=== PATIENT | female | born 1975 | race American Indian/Alaskan Native ===

== ENCOUNTER 2016-08-23 13:48 | Emergency (ER) | payer MEDICARE, MEDICAID ==
[2016-08-23 13:54] VITALS: BP 147/77
[2016-08-23] MEDS ORDERED: Ibuprofen 600 MG Tab PO ONE (14:07)
--- NOTE | 2016-08-23 14:12 | EDM.PDOC ---
ED HPI GENERAL MEDICAL PROBLEM - General Chief Complaint: Diabetic Complaint Stated Complaint: ELEVATED BLOOD SUGAR Time Seen by Provider: 08/23/16 14:08 Source of Information: Reports: Patient History Limitations: Reports: No Limitations - History of Present Illness INITIAL COMMENTS - FREE TEXT/NARRATIVE: c/o not feeling well since yesterday, on off dizziness when turns head or lays down but now OK, appetite good, a DM and BS been running high in 300+ denies CP/ SOB/ but c/o headache now. - Related Data Allergies Allergy/AdvReac Type Severity Reaction Status Date / Time No Known Allergies Allergy Verified 08/10/14 18:02 Home Meds: Home Meds Insulin Detemir [Levemir] 57 unit SQ BID 08/10/14 [History] atorvaSTATin [Lipitor] 20 mg PO DAILY 08/10/14 [History] glipiZIDE [Glucotrol XL] 5 mg PO BID 08/10/14 [History] Fenofibric Acid (Choline) [Fenofibric Acid] 135 mg PO DAILY 09/05/15 [History] Levothyroxine [Synthroid] 88 mcg PO ACBREAKFAST 09/05/15 [History] [place] Carbonate 300 mg PO BEDTIME 09/05/15 [History] [place] Carbonate [[place] Carbon[place] ER] 450 mg PO BEDTIME 09/05/15 [History] lamoTRIgine [Lamictal] 25 mg PO BEDTIME 09/05/15 [History] risperiDONE [Risperdal] 4 mg PO BEDTIME 09/05/15 [History] sitaGLIPtin Phos/Metformin HCl [Janumet 50-1,000 MG] 1 each PO BID 09/05/15 [ History] LORazepam 1 mg PO ASDIRECTED PRN 08/23/16 [History] Past Medical History Cardiovascular History: Reports: High Cholesterol Other OB/BYN History: Vaginal PG 3x in past Musculoskeletal History: Reports: Back Pain, Chronic Psychiatric History: Reports: Anxiety Other Psychiatric History: schizoaffective disorder Endocrine/Metabolic History: Reports: Diabetes, Type II, Hypothyroidism Social & Family History - Tobacco Use Smoking Status *Q: Former Smoker Years of Tobacco use: 10 Used Tobacco, but Quit: Yes Month Tobacco Last Used: 2012 Second Hand Smoke Exposure: Yes - Caffeine Use Caffeine Use: Reports: Soda - Recreational Drug Use Recreational Drug Use: No ED ROS GENERAL - Review of Systems Review Of Systems: ROS reveals no pertinent complaints other than HPI. ED EXAM GENERAL NO PERIP PULSE - Physical Exam Exam: See Below Exam Limited By: No Limitations General Appearance: Alert, WD/WN, No Apparent Distress Eye Exam: Bilateral Eye: PERRL (pupils ess ER @ 4mm) Ears: Hearing Grossly Normal Throat/Mouth: Normal Voice, No Airway Compromise Head: Atraumatic Neck: Non-Tender, Full Range of Motion Respiratory/Chest: No Respiratory Distress Cardiovascular: Regular Rate, Rhythm GI/Abdominal: Soft, Non-Tender Neurological: Alert, Oriented, Normal Cognition, Normal Gait, No Motor/Sensory Deficits Psychiatric: Flat Affect Skin Exam: Warm, Dry Lymphatic: No Adenopathy Course - Vital Signs Last Recorded V/S: Last Vital Signs Temp 37.1 C 08/23/16 13:53 Pulse 88 08/23/16 13:53 Resp 22 H 08/23/16 13:53 BP 147/77 H 08/23/16 13:53 Pulse Ox 96 08/23/16 13:53 - Orders/Labs/Meds Orders: Active Orders 24 hr Category Date Time Status GLUCOSE,POC [POC] Routine Lab 08/23/16 16:00 Received Labs: Laboratory Tests 08/23/16 08/23/16 Range/Units 14:08 14:08 WBC 10.3 H (5.0-10.0) 10^3/uL RBC 4.15 L (4.2-5.4) 10^6/uL Hgb 10.9 L (12.0-16.0) g/dL Hct 34.5 L (37.0-47.0) % MCV 83.1 (80-100) fL MCH 26.3 L (27.0-34.0) pg MCHC 31.6 L (33.0-35.0) g/dL Plt Count 180 (150-450) 10^3/uL Neut % (Auto) 75.0 (42.2-75.2) % Lymph % (Auto) 17.8 L (20.5-50.1) % [place] % (Auto) 4.1 (2-8) % Eos % (Auto) 2.8 (1.0-3.0) % Baso % (Auto) 0.3 (0.0-1.0) % Sodium 134 L (135-145) mmol/L Potassium 4.0 (3.6-5.0) mmol/L Chloride 98 L (101-111) mmol/L Carbon Dioxide 25.0 (21.0-31.0) mmol/L Anion Gap 15.0 BUN 8 (7-18) mg/dL Creatinine 0.7 (0.6-1.3) mg/dL Est Cr Clr Drug Dosing 83.65 mL/min Estimated GFR (MDRD) > 60 BUN/Creatinine Ratio 11.42 Glucose 397 H (74-105) mg/dL Calcium 9.0 (8.4-10.2) mg/dl Total Bilirubin 0.4 (0.2-1.0) mg/dL AST 67 H (10-42) IU/L ALT 61 H (10-60) IU/L Alkaline Phosphatase 47 (42-121) IU/L Total Protein 7.7 (6.7-8.2) g/dl Albumin 4.0 (3.2-5.5) g/dl Globulin 3.7 Albumin/Globulin Ratio 1.08 Meds: Medications Discontinued Medications Generic Name Dose Route Start Last Admin Trade Name Freq PRN Reason Stop Dose Admin Ibuprofen 600 mg 08/23/16 14:07 08/23/16 14:17 Motrin PO 08/23/16 14:08 600 mg ONETIME ONE Administration Insulin Human Regular 5 unit 08/23/16 14:42 08/23/16 15:04 Novolin R SUBCUT 08/23/16 14:43 5 units ONETIME ONE Administration Protocol Meclizine HCl 12.5 mg 08/23/16 14:42 08/23/16 15:05 Antivert PO 08/23/16 14:43 12.5 mg ONETIME ONE Administration - Re-Assessments/Exams Free Text/Narrative Re-Assessment/Exam: 08/23/16 16:02 results discussed with Pt & mother. Departure - Departure Time of Disposition: 16:02 Disposition: Home, Self-Care 01 Condition: Good Clinical Impression: Hyperglycemia - Discharge Information Instructions: Type 2 Diabetes Mellitus, Adult, [id number] Forms: ED Department Discharge Additional Instructions: 1) monitor blood sugar closely 2) follow up at clinic - My Orders Last 24 Hours: My Active Orders 08/23/16 16:00 GLUCOSE,POC [POC] Routine - Assessment/Plan Last 24 Hours: My Active Orders 08/23/16 16:00 GLUCOSE,POC [POC] Routine
[2016-08-23 14:32] LABS: CHLORIDE,CL 98 mmol/L (101-111); SODIUM,NA 134 mmol/L (135-145)
[2016-08-23] MEDS ORDERED: Meclizine 12.5 MG Tab PO ONE (14:42)
[2016-08-23] MEDS ORDERED: Insulin Regular, Human 100 Units/ML 10 ML Vial SUBCUT ONE (14:42)
== END 2016-08-23 16:09 | disposition home or self-care (01) ==
LOC: DL.ED 13:48
DX: E11.65 Type 2 diabetes mellitus with hyperglycemia (principal); F41.9 Anxiety disorder, unspecified; E78.00 Pure hypercholesterolemia, unspecified; E03.9 Hypothyroidism, unspecified; Z79.899 Other long term (current) drug therapy; Z79.4 Long term (current) use of insulin; Z87.891 Personal history of nicotine dependence
CPT/HCPCS: 36415; 80053; 82962; 85025; 96372; 99284; A9270; J1815; 99283

== ENCOUNTER 2016-10-17 05:05 | Emergency (ER) | payer MEDICARE, MEDICAID ==
[2016-10-17 05:11] VITALS: BP 155/76
[2016-10-17] MEDS ORDERED: Sodium Chloride 0.9% 1,000 ML IV ONE (05:28)
--- NOTE | 2016-10-17 05:34 | EDM.PDOC ---
ED HPI GENERAL MEDICAL PROBLEM - General Chief Complaint: Diabetic Complaint Stated Complaint: HIGH BLOOD SUGAR Time Seen by Provider: 10/17/16 05:20 Source of Information: Reports: Patient History Limitations: Reports: No Limitations - History of Present Illness INITIAL COMMENTS - FREE TEXT/NARRATIVE: This 41 yo female patient reports to the ED due to a high blood sugar. The patient reports her blood sugar was 550 at home and came directly to the ED. The patient reports she does not know the names of her medications and only knows how much she takes in the morning and the evening. The patient does not know what she is supposed to be taking with meals. The patient does not know what her blood sugar was before taking her medications. The patient reports she normally goes to bed at about 0300, but did not get to sleep tonight. The patient reports that her mother controls her diabetes, but her mother "couldn't get up" this morning. The patient reports she drove herself to the ED. Onset: Today Duration: Constant Location: Reports: Other Quality: Reports: Other Severity: Moderate Improves with: Reports: None Worsens with: Reports: None Associated Symptoms: Reports: No Other Symptoms - Related Data Allergies Allergy/AdvReac Type Severity Reaction Status Date / Time No Known Allergies Allergy Verified 10/17/16 05:11 Home Meds: Home Meds Insulin Detemir [Levemir] 57 unit SQ BID 08/10/14 [History] atorvaSTATin [Lipitor] 20 mg PO DAILY 08/10/14 [History] glipiZIDE [Glucotrol XL] 5 mg PO BID 08/10/14 [History] Fenofibric Acid (Choline) [Fenofibric Acid] 135 mg PO DAILY 09/05/15 [History] Levothyroxine [Synthroid] 88 mcg PO ACBREAKFAST 09/05/15 [History] [place] Carbonate 300 mg PO BEDTIME 09/05/15 [History] [place] Carbonate [[place] Carbonate ER] 450 mg PO BEDTIME 09/05/15 [History] lamoTRIgine [Lamictal] 25 mg PO BEDTIME 09/05/15 [History] risperiDONE [Risperdal] 4 mg PO BEDTIME 09/05/15 [History] sitaGLIPtin Phos/Metformin HCl [Janumet 50-1,000 MG] 1 each PO BID 09/05/15 [ History] LORazepam 1 mg PO ASDIRECTED PRN 08/23/16 [History] Past Medical History Cardiovascular History: Reports: High Cholesterol Other OB/BYN History: Vaginal PG 3x in past Musculoskeletal History: Reports: Back Pain, Chronic Psychiatric History: Reports: Anxiety, Suicidal Ideation Other Psychiatric History: schizoaffective disorder Endocrine/Metabolic History: Reports: Diabetes, Type II, Hypothyroidism Social & Family History - Tobacco Use Smoking Status *Q: Former Smoker Years of Tobacco use: 10 Used Tobacco, but Quit: Yes Month Tobacco Last Used: 6 years ago Second Hand Smoke Exposure: Yes - Caffeine Use Caffeine Use: Reports: Soda - Recreational Drug Use Recreational Drug Use: No ED ROS GENERAL - Review of Systems Review Of Systems: ROS reveals no pertinent complaints other than HPI. ED EXAM GENERAL NO PERIP PULSE - Physical Exam Exam: See Below Exam Limited By: No Limitations General Appearance: Alert, WD/WN, Anxious, Moderate Distress, Obese Eye Exam: Bilateral Eye: EOMI, Normal Inspection, PERRL Ears: Normal External Exam, Normal Canal, Hearing Grossly Normal, Normal TMs Nose: Normal Inspection, Normal Mucosa, No Blood Throat/Mouth: Normal Inspection, Normal Lips, Normal Teeth, Normal Gums, Normal Oropharynx, Normal Voice, No Airway Compromise Head: Atraumatic, Normocephalic Neck: Normal Inspection, Supple, Non-Tender, Full Range of Motion Respiratory/Chest: No Respiratory Distress, Lungs Clear, Normal Breath Sounds, No Accessory Muscle Use, Chest Non-Tender Cardiovascular: Normal Peripheral Pulses, Regular Rate, Rhythm, No Edema, No Gallop, No JVD, No Murmur, No Rub GI/Abdominal: Normal Bowel Sounds, Soft, Non-Tender, No Organomegaly, No Distention, No Abnormal Bruit, No Mass (Female) Exam: Deferred Rectal (Female) Exam: Deferred Back Exam: Normal Inspection, Full Range of Motion, NT Extremities: Normal Inspection, Normal Range of Motion, Non-Tender, Normal Capillary Refill, No Pedal Edema Neurological: Alert, Oriented, CN II-XII Intact, Normal Cognition, Normal Gait, Normal Reflexes, No Motor/Sensory Deficits Psychiatric: Normal Affect, Normal Mood Skin Exam: Warm, Dry, Intact, Normal Color, No Rash Lymphatic: No Adenopathy Course - Vital Signs Last Recorded V/S: Last Vital Signs Temp 37.2 C 10/17/16 05:08 Pulse 84 10/17/16 05:08 Resp 18 08/07/17 05:08 BP 155/76 H 10/17/16 05:08 Pulse Ox 97 10/17/16 05:08 - Orders/Labs/Meds Orders: Active Orders 24 hr Category Date Time Status Blood Glucose Check, Bedside [RC] ONETIME Care 10/17/16 05:12 Active Glucose [Blood Glucose Check, Bedside] [RC] ONETIME Care 10/17/16 06:40 Ordered Labs: Laboratory Tests 10/17/16 10/17/16 10/17/16 Range/Units 05:12 05:20 05:20 WBC 9.1 (5.0-10.0) 10^3/uL RBC 4.08 L (4.2-5.4) 10^6/uL Hgb 10.9 L (12.0-16.0) g/dL Hct 34.8 L (37.0-47.0) % MCV 85.3 (80-100) fL MCH 26.7 L (27.0-34.0) pg MCHC 31.3 L (33.0-35.0) g/dL Plt Count 187 (150-450) 10^3/uL Neut % (Auto) 67.7 (42.2-75.2) % Lymph % (Auto) 24.8 (20.5-50.1) % [place] % (Auto) 4.6 (2-8) % Eos % (Auto) 2.7 (1.0-3.0) % Baso % (Auto) 0.2 (0.0-1.0) % Sodium 132 L (135-145) mmol/L Potassium 4.7 (3.6-5.0) mmol/L Chloride 95 L (101-111) mmol/L Carbon Dioxide 26.0 (21.0-31.0) mmol/L Anion Gap 15.7 BUN 17 (7-18) mg/dL Creatinine 0.8 (0.6-1.3) mg/dL Est Cr Clr Drug Dosing 73.19 mL/min Estimated GFR (MDRD) > 60 BUN/Creatinine Ratio 21.25 Glucose 585 H* (74-105) mg/dL POC Glucose > 500 H* (70-105) mg/dl Calcium 9.3 (8.4-10.2) mg/dl Total Bilirubin 0.5 (0.2-1.0) mg/dL AST 52 H (10-42) IU/L ALT 58 (10-60) IU/L Alkaline Phosphatase 49 (42-121) IU/L Total Protein 7.3 (6.7-8.2) g/dl Albumin 3.8 (3.2-5.5) g/dl Globulin 3.5 Albumin/Globulin Ratio 1.09 Ketones Negative Meds: Medications Discontinued Medications Generic Name Dose Route Start Last Admin Trade Name [place] PRN Reason Stop Dose Admin Sodium Chloride 1,000 mls @ 999 mls/hr 10/17/16 05:28 10/17/16 05:35 Normal Saline IV 10/17/16 06:28 999 mls/hr .BOLUS ONE Administration Insulin Human Regular 5 unit 10/17/16 06:04 10/17/16 06:08 Humulin R IV 10/17/16 06:05 5 units ONETIME ONE Administration Protocol Departure - Departure Time of Disposition: 06:42 Disposition: Home, Self-Care 01 Condition: Fair Clinical Impression: Hyperglycemia - Discharge Information Instructions: Hyperglycemia, [id number] Forms: ED Department Discharge Care Plan Goals: The patient and her mother were advised of the examination and lab results during the visit. The patient was given 5 units of Regular Insulin and 1 liter of IV fluids while in the ED. The patient was encouraged to continue to monitor her blood sugar. If the patient has any additional symptoms or concerns, the patient should follow-up with her primary care facility or return to the emergency department. - My Orders Last 24 Hours: My Active Orders 10/17/16 05:12 Blood Glucose Check, Bedside [RC] ONETIME 10/17/16 06:40 Glucose [Blood Glucose Check, Bedside] [] ONETIME - Assessment/Plan Last 24 Hours: My Active Orders 10/17/16 05:12 Blood Glucose Check, Bedside [RC] ONETIME 10/17/16 06:40 Glucose [Blood Glucose Check, Bedside] [] ONETIME
[2016-10-17 06:02] LABS: CHLORIDE,CL 95 mmol/L (101-111); SODIUM,NA 132 mmol/L (135-145)
[2016-10-17] MEDS ORDERED: Insulin Regular, Human 100 Units/ML 3 ML Vial IV ONE (06:04)
== END 2016-10-17 06:51 | disposition home or self-care (01) ==
LOC: DL.ED 05:05
DX: E11.65 Type 2 diabetes mellitus with hyperglycemia (principal); E78.00 Pure hypercholesterolemia, unspecified; F41.9 Anxiety disorder, unspecified; E03.9 Hypothyroidism, unspecified; Z87.891 Personal history of nicotine dependence; Z79.899 Other long term (current) drug therapy; Z79.4 Long term (current) use of insulin
CPT/HCPCS: 36415; 80053; 82009; 82962; 85025; 96361; 96374; 99283; J1815; J7030; 99284

== ENCOUNTER 2018-06-12 13:39 | Emergency (ER) | payer MEDICARE, MEDICAID ==
[2018-06-12 13:51] VITALS: BP 141/82
--- NOTE | 2018-06-12 14:00 | EDM.PDOC ---
"ED HPI GENERAL MEDICAL PROBLEM - General Chief Complaint: Chest Pain Stated Complaint: CHEST PAIN Time Seen by Provider: 06/12/18 14:00 Source of Information: Reports: Patient, Old Records, RN, RN Notes Reviewed History Limitations: Reports: No Limitations - History of Present Illness INITIAL COMMENTS - FREE TEXT/NARRATIVE: Pt presents to ER from home by POV with c/o mild dull mid-chest pain x3 days. Pt states that she also has been unable to have a BM for 3 days and feels crampy in the belly and thinks that she is constipated. She denies N/V, shortness of breath, edema, orthopnea, cough, or radiating pain. Denies fever, chills, or urinary symptoms. Pt told the triage nurse that she was was having some thoughts of self harm. However, when I asked her she stated that she was not suicidal and is well connected with mental health services. Onset: Gradual Onset Date: 06/10/18 Duration: Constant, Waxing/Waning Location: Reports: Chest, Abdomen Quality: Reports: Dull, Pressure, Other (Cramping) Severity: Mild Improves with: Reports: None Worsens with: Reports: Eating Associated Symptoms: Reports: No Other Symptoms - Related Data Allergies Allergy/AdvReac Type Severity Reaction Status Date / Time No Known Allergies Allergy Verified 06/12/18 13:49 Home Meds: Home Meds Insulin Detemir [Levemir] 57 unit SQ BID 08/10/14 [History] atorvaSTATin [Lipitor] 20 mg PO DAILY 08/10/14 [History] glipiZIDE [Glucotrol XL] 5 mg PO BID 08/10/14 [History] Fenofibric Acid (Choline) [Fenofibric Acid] 135 mg PO DAILY 09/05/15 [History] Levothyroxine [Synthroid] 88 mcg PO ACBREAKFAST 09/05/15 [History] [place] Carbonate 300 mg PO BEDTIME 09/05/15 [History] [place] Carbonate [[place] Carbonate ER] 450 mg PO BEDTIME 09/05/15 [History] lamoTRIgine [Lamictal] 25 mg PO BEDTIME 09/05/15 [History] risperiDONE [Risperdal] 4 mg PO BEDTIME 09/05/15 [History] sitaGLIPtin Phos/Metformin HCl [Janumet 50-1,000 MG] 1 each PO BID 09/05/15 [ History] LORazepam 1 mg PO ASDIRECTED PRN 08/23/16 [History] Past Medical History Cardiovascular History: Reports: High Cholesterol 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: Vaginal PG 3x in past Musculoskeletal History: Reports: Back Pain, Chronic Psychiatric History: Reports: Anxiety, Suicidal Ideation Other Psychiatric History: schizoaffective disorder Endocrine/Metabolic History: Reports: Diabetes, Type II, Hypothyroidism Social & Family History - Tobacco Use Smoking Status *Q: Former Smoker Used Tobacco, but Quit: Yes Month/Year Tobacco Last Used: 2010 - Caffeine Use Caffeine Use: Reports: Soda - Recreational Drug Use Recreational Drug Use: No - Living Situation & Occupation Living situation: Reports: Single, with Family Occupation: Disabled ED ROS GENERAL - Review of Systems Review Of Systems: ROS reveals no pertinent complaints other than HPI. ED EXAM, GENERAL - Physical Exam Exam: See Below Exam Limited By: No Limitations General Appearance: Alert, WD/WN, No Apparent Distress, Obese Eye Exam: Bilateral Eye: Normal Inspection Nose: Normal Inspection Throat/Mouth: Normal Inspection, Normal Lips, Normal Teeth, Normal Gums, Normal Oropharynx, Normal Voice, No Airway Compromise Head: Atraumatic, Normocephalic Neck: Normal Inspection, Supple, Non-Tender, Full Range of Motion Respiratory/Chest: No Respiratory Distress, Lungs Clear, Normal Breath Sounds, No Accessory Muscle Use, Chest Non-Tender Cardiovascular: Normal Peripheral Pulses, Regular Rate, Rhythm, No Edema, No Gallop, No JVD, No Murmur, No Rub GI/Abdominal: Normal Bowel Sounds, Soft, Non-Tender, No Distention, Splenomegaly. No: Guarding, Rigid (Female) Exam: Deferred Rectal (Female) Exam: Deferred Back Exam: Normal Inspection Extremities: Normal Inspection, No Pedal Edema Neurological: Alert, Oriented, No Motor/Sensory Deficits Psychiatric: Normal Affect, Normal Mood Skin Exam: Warm, Dry, Intact, Normal Color, No Rash EKG INTERPRETATION EKG Date: 06/12/18 Time: 13:51 Rhythm: Other (SR) Rate (Beats/Min): 86 [place]: RAD-Right [place] Deviation P-Wave: Present QRS: Other (borderline R wave progression) ST-T: Normal QT: Normal Comparison: No Change Course - Vital Signs Last Recorded V/S: Last Vital Signs Temp 36.4 C 06/12/18 13:49 Pulse 86 06/12/18 13:49 Resp 23 H 06/12/18 13:49 BP 141/82 H 06/12/18 13:49 Pulse Ox 95 06/12/18 13:49 - Orders/Labs/Meds Orders: Active Orders 24 hr Category Date Time Status EKG 12 Lead [EKG Documentation Completion] [RC] STAT Care 06/12/18 14:00 Active Peripheral IV Care [RC] . DIRECTED Care 06/12/18 14:17 Active HCG QUALITATIVE,URINE [URCHEM] Stat Lab 06/12/18 14:17 Ordered LITHIUM [REF] Stat Lab 06/12/18 13:27 Received UA RFX JAIRO AND CULT IF INDIC [URIN] Stat Lab 06/12/18 14:17 Ordered Peripheral IV Insertion Adult [OM.PC] Stat Oth 06/12/18 14:17 Ordered Labs: Laboratory Tests 06/12/18 06/12/18 Range/Units 13:27 13:27 WBC 13.3 H (5.0-10.0) 10^3/uL RBC 4.61 (4.2-5.4) 10^6/uL Hgb 12.3 (12.0-16.0) g/dL Hct 39.3 (37.0-47.0) % MCV 85.2 (80-100) fL MCH 26.7 L (27.0-34.0) pg MCHC 31.3 L (33.0-35.0) g/dL Plt Count 159 (150-450) 10^3/uL Neut % (Auto) 71.6 (42.2-75.2) % Lymph % (Auto) 20.3 L (20.5-50.1) % [place] % (Auto) 4.8 (2-8) % Eos % (Auto) 2.9 (1.0-3.0) % Baso % (Auto) 0.4 (0.0-1.0) % Sodium 136 (135-145) mmol/L Potassium 3.9 (3.6-5.0) mmol/L Chloride 100 L (101-111) mmol/L Carbon Dioxide 27.0 (21.0-31.0) mmol/L Anion Gap 12.9 BUN 10 (7-18) mg/dL Creatinine 0.7 (0.6-1.3) mg/dL Est Cr Clr Drug Dosing 82.80 mL/min Estimated GFR (MDRD) > 60 BUN/Creatinine Ratio 14.28 Glucose 153 H (74-105) mg/dL Calcium 9.1 (8.4-10.2) mg/dl Total Bilirubin 0.5 (0.2-1.0) mg/dL AST 37 (10-42) IU/L ALT 41 (10-60) IU/L Alkaline Phosphatase 66 (42-121) IU/L Troponin I < 0.02 (0.00-0.02) ng/ml Total Protein 7.6 (6.7-8.2) g/dl Albumin 3.8 (3.2-5.5) g/dl Globulin 3.8 Albumin/Globulin Ratio 1.00 Amylase 53 (28-100) U/L Lipase 33 (22-51) U/L Meds: Medications Discontinued Medications Generic Name Dose Route Start Last Admin Trade Name Freq PRN Reason Stop Dose Admin Aspirin 324 mg 06/12/18 14:19 06/12/18 14:46 Aspirin PO 06/12/18 14:20 324 mg ONETIME ONE Administration Magnesium Citrate 296 ml 06/12/18 15:12 06/12/18 15:18 Citrate Of Magnesia PO 06/12/18 15:13 296 ml ONETIME ONE Administration Sodium Chloride 10 ml 06/12/18 14:17 Saline Flush FLUSH ASDIRECTED PRN Keep Vein Open - Radiology Interpretation Free Text/Narrative:: [facility] Final Radiology Report Call: [phone] assistance Online chat: [email or web address] Name: RACHELLE SIMS Age: 42Years F Date: 06/12/2018 SSN: -- : [id number] Study: XR CHEST 2 VIEWS Requesting Physician: ABELARDO MCDANIEL Images: 2 Addl Studies: Provided Clinical History: Contrast: Contrast Medium: Contrast Amount: Contrast Method: CONFIDENTIALITY STATEMENT This report is intended only for use by the referring physician, and only in accordance with law. If you received this in error, call [phone]. Page 1 of 1 EXAM: XR Chest, 2 Views EXAM DATE/TIME: 06/12/2018 2:24 PM CLINICAL HISTORY: 42 years old, female; Pain; Chest pain; Type not specified TECHNIQUE: Imaging protocol: XR of the chest, 2 views. COMPARISON: No relevant prior studies available. FINDINGS: Lungs: Unremarkable. No consolidation. Pleural space: Unremarkable. No pleural effusion. No pneumothorax. Heart/Mediastinum: Unremarkable. No cardiomegaly. Bones/joints: Unremarkable. IMPRESSION: No acute findings. Thank you for allowing us to participate in the care of your patient. Dictated and Authenticated by: Blayne Salcido DO 06/12/2018 2:56 PM Central Time ([place] & [place]) [facility] Final Radiology Report Call: [phone] assistance Online chat: [email or web address] Name: RACHELLE SIMS Age: 42Years F Date: 06/12/2018 SSN: -- : [id number] Study: XR ABDOMEN 3 OR MORE VIEWS Requesting Physician: ABELARDO MCDANIEL Images: 5 Addl Studies: Provided Clinical History: Contrast: Contrast Medium: Contrast Amount: Contrast Method: Page 1 of 2 EXAM: XR Abdomen, 3 or More Views EXAM DATE/TIME: 06/12/2018 2:31 PM CLINICAL HISTORY: 42 years old, female; Pain; Abdominal pain; Generalized; Patient HX: Abdomen pain and constipation TECHNIQUE: Imaging protocol: Frontal view of the abdomen/pelvis with upright view of the abdomen and one or more additional views. COMPARISON: No relevant prior studies available. FINDINGS: Gastrointestinal tract: The bowel gas pattern is nonobstructive and nonspecific. Intraperitoneal space: Normal. No free air. Bones/joints: Unremarkable for age. Other findings: Mild hepatomegaly is present. IMPRESSION: 1. The bowel gas pattern is nonobstructive and nonspecific. 2. Mild hepatomegaly is present. Further evaluation with CT of the abdomen and pelvis may be of benefit, as clinically warranted. Thank you for allowing us to participate in the care of your patient. RACHELLE SIMS | Final Radiology Report CONFIDENTIALITY STATEMENT This report is intended only for use by the referring physician, and only in accordance with law. If you received this in error, call [phone]. Page 2 of 2 Dictated and Authenticated by: Blayne Salcido DO 06/12/2018 2:57 PM Central Time ([place] & [place]) Departure - Departure Time of Disposition: 15:13 Disposition: Home, Self-Care 01 Condition: Good Clinical Impression: Non-cardiac chest pain Constipation Qualifiers: Constipation type: unspecified constipation type Qualified Code(s): K59.00 - Constipation, unspecified Instructions: High-Fiber Diet, Constipation, Adult, Sikx-[id number], Nonspecific Chest Pain, [id number] Referrals: PCP,None [Ordering Only Provider] - Forms: ED Department Discharge Additional Instructions: Magnesium Citrate Solution: Drink 1/2 bottle now, and drink the second 1/2 of the bottle before bed tonight. Follow up in clinic if not improved in 2 to 3 days. - My Orders Last 24 Hours: My Active Orders 06/12/18 13:27 LITHIUM [REF] Stat 06/12/18 14:00 EKG 12 Lead [EKG Documentation Completion] [RC] STAT 06/12/18 14:17 Peripheral IV Care [RC] . DIRECTED HCG QUALITATIVE,URINE [URCHEM] Stat UA RFX JAIRO AND CULT IF INDIC [URIN] Stat Peripheral IV Insertion Adult [OM.PC] Stat - Assessment/Plan Last 24 Hours: My Active Orders 06/12/18 13:27 LITHIUM [REF] Stat 06/12/18 14:00 EKG 12 Lead [EKG Documentation Completion] [RC] STAT 06/12/18 14:17 Peripheral IV Care [RC] . DIRECTED HCG QUALITATIVE,URINE [URCHEM] Stat UA RFX JAIRO AND CULT IF INDIC [URIN] Stat Peripheral IV Insertion Adult [OM.PC] Stat"
[2018-06-12] MEDS ORDERED: Sodium Chloride 0.9% 10 ML Syringe FLUSH PRN (14:17)
[2018-06-12] MEDS ORDERED: Aspirin 81 MG Tab.Chew PO ONE (14:19)
[2018-06-12 14:37] LABS: ANION GAP 12.9; CHLORIDE,CL 100 mmol/L (101-111); SODIUM,NA 136 mmol/L (135-145)
[2018-06-12] MEDS ORDERED: Magnesium Citrate Solution 296 ML Bottle PO ONE (15:12)
== END 2018-06-12 15:27 | disposition home or self-care (01) ==
LOC: DL.ED 13:39
DX: R07.89 Other chest pain (principal); K59.00 Constipation, unspecified; E78.00 Pure hypercholesterolemia, unspecified; F41.9 Anxiety disorder, unspecified; E11.9 Type 2 diabetes mellitus without complications; E03.9 Hypothyroidism, unspecified; Z87.891 Personal history of nicotine dependence; Z79.84 Long term (current) use of oral hypoglycemic drugs; Z79.899 Other long term (current) drug therapy
CPT/HCPCS: 36415; 71046; 74021; 80053; 80178; 82150; 83690; 84484; 85025; 93005; 99285; A9270; 93010; 99283

== ENCOUNTER 2018-11-01 19:22 | Emergency (ER) | payer MEDICARE, MEDICAID ==
[2018-11-01 19:36] VITALS: BP 159/82
[2018-11-01] MEDS ORDERED: Ketorolac 30 MG/ML SDV IM ONE (20:28)
--- NOTE | 2018-11-01 20:35 | EDM.PDOC ---
ED HPI GENERAL MEDICAL PROBLEM - General Chief Complaint: Genitourinary Problem Stated Complaint: VAGINAL BLEEDING- FEELS LIKE GIVING Time Seen by Provider: 11/01/18 20:29 Source of Information: Reports: Patient History Limitations: Reports: No Limitations - History of Present Illness INITIAL COMMENTS - FREE TEXT/NARRATIVE: had 1x vaginal bleed when she wiped herself earlier today. called PMD got Rx but not helping her discomfort. also has appt in am. denies . stated worried something wrong. 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) Lower Abdominal Pain Score (Numeric/FACES): 7 - Related Data Allergies Allergy/AdvReac Type Severity Reaction Status Date / Time No Known Allergies Allergy Verified 06/12/18 13:49 Home Meds: Home Meds Insulin Detemir [Levemir] 65 unit SQ BID 08/10/14 [History] atorvaSTATin [Lipitor] 20 mg PO DAILY 08/10/14 [History] glipiZIDE [Glucotrol XL] 5 mg PO BID 08/10/14 [History] Fenofibric Acid (Choline) [Fenofibric Acid] 135 mg PO DAILY 09/05/15 [History] Levothyroxine [Synthroid] 88 mcg PO ACBREAKFAST 09/05/15 [History] [place] Carbonate 300 mg PO BEDTIME 09/05/15 [History] lamoTRIgine [Lamictal] 25 mg PO BEDTIME 09/05/15 [History] risperiDONE [Risperdal] 4 mg PO BEDTIME 09/05/15 [History] sitaGLIPtin Phos/Metformin HCl [Janumet 50-1,000 MG] 1 each PO BID 09/05/15 [ History] LORazepam 1 mg PO ASDIRECTED PRN 08/23/16 [History] Past Medical History HEENT History: Reports: Impaired Vision Cardiovascular History: Reports: High Cholesterol Gastrointestinal History: Reports: None 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: Vaginal PG 3x in past Musculoskeletal History: Reports: Back Pain, Chronic Psychiatric History: Reports: Anxiety, Suicidal Ideation Other Psychiatric History: schizoaffective disorder Endocrine/Metabolic History: Reports: Diabetes, Type II, Hypothyroidism - Infectious Disease History Infectious Disease History: Reports: Chicken Pox Social & Family History - Family History Family Medical History: Noncontributory - Tobacco Use Smoking Status *Q: Unknown Ever Smoked Second Hand Smoke Exposure: No - Caffeine Use Caffeine Use: Reports: Soda - Recreational Drug Use Recreational Drug Use: No - Living Situation & Occupation Living situation: Reports: Single, with Family Occupation: Disabled ED ROS GENERAL - Review of Systems Review Of Systems: ROS reveals no pertinent complaints other than HPI. ED EXAM, RENAL/ - Physical Exam Exam: See Below Exam Limited By: No Limitations General Appearance: Alert, WD/WN, No Apparent Distress, Anxious Ears: Hearing Grossly Normal Throat/Mouth: Normal Voice, No Airway Compromise Head: Atraumatic Neck: Non-Tender, Full Range of Motion Respiratory/Chest: No Respiratory Distress Cardiovascular: Regular Rate, Rhythm GI/Abdominal: Soft, Non-Tender, Other (minimal suprapubic discomfort) Neurological: Alert, Oriented, Normal Cognition, Normal Gait, No Motor/Sensory Deficits Psychiatric: Flat Affect Skin Exam: Warm, Dry, Normal Color Lymphatic: No Adenopathy Course - Vital Signs Last Recorded V/S: Last Vital Signs Temp 36.3 C 11/01/18 19:35 Pulse 84 11/01/18 19:35 Resp 16 11/01/18 19:35 BP 159/82 H 11/01/18 19:35 Pulse Ox 98 11/01/18 19:35 - Orders/Labs/Meds Orders: Active Orders 24 hr Category Date Time Status CULTURE URINE [RM] Urgent Lab 11/01/18 19:44 Received Ketorolac [Toradol] Med 11/01/18 20:28 Once 30 mg IM ONETIME ONE Labs: Laboratory Tests 11/01/18 11/01/18 Range/Units 19:44 19:44 Urine Color Light yellow (YELLOW) Urine Appearance Slightly cloudy (CLEAR) Urine pH 7.0 (5.0-9.0) Ur Specific [place] 1.015 (1.005-1.030) Urine Protein 30 H (NEGATIVE) Urine Glucose (UA) Negative (NEGATIVE) Urine Ketones Negative (NEGATIVE) Urine Occult Blood Moderate H (NEGATIVE) Urine Nitrite Negative (NEGATIVE) Urine Bilirubin Negative (NEGATIVE) Urine Urobilinogen 0.2 (0.2-1.0) mg/dL Ur Leukocyte Esterase Trace H (NEGATIVE) Urine RBC 0-5 /HPF Urine WBC 5-10 H (0-5/HPF) /HPF Ur Epithelial Cells Moderate H (NOT SEEN) /HPF Urine Bacteria Moderate H (0-FEW/HPF) /HPF Urine Opiates Screen Negative (NEGATIVE) Ur Oxycodone Screen Negative (NEGATIVE) Urine Methadone Screen Negative (NEGATIVE) Ur Barbiturates Screen Negative (NEGATIVE) U Tricyclic Antidepress Negative (NEGATIVE) Ur Phencyclidine Scrn Negative (NEGATIVE) Ur Amphetamine Screen Negative (NEGATIVE) U Methamphetamines Scrn Negative (NEGATIVE) Urine MDMA Screen Negative (NEGATIVE) U Benzodiazepines Scrn Positive H (NEGATIVE) Urine Cocaine Screen Negative (NEGATIVE) U Marijuana (THC) Screen Negative (NEGATIVE) - Re-Assessments/Exams Free Text/Narrative Re-Assessment/Exam: 11/01/18 20:32 results discussed with pt. Departure - Departure Time of Disposition: 20:33 Disposition: Home, Self-Care 01 Condition: Good Clinical Impression: Menopausal bleeding - Discharge Information Instructions: Postmenopausal Bleeding, [id number] Additional Instructions: 1) rest 2) follow up with appointment tomorrow - My Orders Last 24 Hours: My Active Orders 11/01/18 19:44 CULTURE URINE [RM] Urgent 11/01/18 20:28 Ketorolac [Toradol] 30 mg IM ONETIME ONE - Assessment/Plan Last 24 Hours: My Active Orders 11/01/18 19:44 CULTURE URINE [RM] Urgent 11/01/18 20:28 Ketorolac [Toradol] 30 mg IM ONETIME ONE
== END 2018-11-01 20:54 | disposition home or self-care (01) ==
LOC: DL.ED 19:22
DX: N92.4 Excessive bleeding in the premenopausal period (principal); E11.9 Type 2 diabetes mellitus without complications; F41.9 Anxiety disorder, unspecified; F25.9 Schizoaffective disorder, unspecified; E03.9 Hypothyroidism, unspecified; E78.00 Pure hypercholesterolemia, unspecified; Z79.4 Long term (current) use of insulin; Z79.899 Other long term (current) drug therapy
CPT/HCPCS: 80305; 81001; 87086; 96372; 99283; J1885

== ENCOUNTER 2019-03-25 00:48 | Emergency (ER) | payer MEDICAID, MEDICARE ==
[2019-03-25 00:54] VITALS: BP 165/83; PULSE 123
[2019-03-25 01:25] LABS: ANION GAP 13.7; CHLORIDE,CL 100 mmol/L (101-111); SODIUM,NA 134 mmol/L (135-145)
[2019-03-25 01:35] LABS: ACETAMINOPHEN < 10 ug/mL
[2019-03-25] MEDS ORDERED: Acetaminophen 325 MG Tab PO ONE (01:55)
--- NOTE | 2019-03-25 03:02 | EDM.PDOCBH ---
ED HPI GENERAL MEDICAL PROBLEM - General Chief Complaint: Behavioral/Psych Stated Complaint: AMBULANCE Time Seen by Provider: 03/25/19 02:58 Source of Information: Reports: Patient, EMS, Old Records History Limitations: Reports: No Limitations - History of Present Illness INITIAL COMMENTS - FREE TEXT/NARRATIVE: pt states hadn't been right for awhile about 15-17 years after trying out pot. tonight just didn't feel right. denies self harm but has thought about it on- off for awhile. likes to talk to mental health. been under lot of stress in life. Headache Pain Score (Numeric/FACES): 5 - Related Data Allergies Allergy/AdvReac Type Severity Reaction Status Date / Time No Known Allergies Allergy Verified 11/26/18 10:35 Home Meds: Home Meds Insulin Detemir [Levemir] 65 unit SQ BID 08/10/14 [History] atorvaSTATin [Lipitor] 20 mg PO DAILY 08/10/14 [History] glipiZIDE [Glucotrol XL] 5 mg PO BID 08/10/14 [History] Fenofibric Acid (Choline) [Fenofibric Acid] 135 mg PO DAILY 09/05/15 [History] Levothyroxine [Synthroid] 88 mcg PO ACBREAKFAST 09/05/15 [History] [place] Carbonate 300 mg PO BEDTIME 09/05/15 [History] lamoTRIgine [Lamictal] 25 mg PO BEDTIME 09/05/15 [History] risperiDONE [Risperdal] 4 mg PO BEDTIME 09/05/15 [History] sitaGLIPtin Phos/Metformin HCl [Janumet 50-1,000 MG] 1 each PO BID 09/05/15 [ History] LORazepam 1 mg PO ASDIRECTED PRN 08/23/16 [History] Past Medical History HEENT History: Reports: Impaired Vision Cardiovascular History: Reports: High Cholesterol Respiratory History: Reports: None Gastrointestinal History: Reports: None Genitourinary History: Reports: None 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: Vaginal PG 3x in past Musculoskeletal History: Reports: Back Pain, Chronic Neurological History: Reports: None Psychiatric History: Reports: Anxiety, Depression, Suicidal Ideation Other Psychiatric History: schizoaffective disorder Endocrine/Metabolic History: Reports: Diabetes, Type II, Hypothyroidism Hematologic History: Reports: None Immunologic History: Reports: None Oncologic (Cancer) History: Reports: None Dermatologic History: Reports: None - Infectious Disease History Infectious Disease History: Reports: Chicken Pox - Past Surgical History Head Surgeries/Procedures: Reports: None Social & Family History - Family History Family Medical History: Noncontributory - Tobacco Use Smoking Status *Q: Former Smoker Used Tobacco, but Quit: Yes Month/Year Tobacco Last Used: 2010 Second Hand Smoke Exposure: No - Caffeine Use Caffeine Use: Reports: Coffee - Recreational Drug Use Recreational Drug Use: No - Living Situation & Occupation Living situation: Reports: Single, with Family Occupation: Disabled ED ROS GENERAL - Review of Systems Review Of Systems: Comprehensive ROS is negative, except as noted in HPI. ED EXAM, BEHAVIORAL HEALTH - Physical Exam Exam: See Below Exam Limited By: No Limitations General Appearance: Alert, WD/WN, No Apparent Distress Eye Exam: Bilateral Eye: PERRL (pupils ER @ 4mm) Ears: Hearing Grossly Normal Throat/Mouth: Normal Voice, No Airway Compromise Head: Atraumatic Neck: Non-Tender, Full Range of Motion Respiratory/Chest: No Respiratory Distress, Lungs Clear, Normal Breath Sounds Cardiovascular: Regular Rate, Rhythm GI/Abdominal: Soft, Non-Tender Neurological: Alert, Normal Mood/Affect, Normal Cognition, Normal Gait, No Motor /Sensory Deficits, Oriented x 3 Psychiatric: Alert, Normal Affect, Normal Cognition, Normal Mood, Oriented Skin Exam: Warm, Dry, Normal color COURSE, BEHAVIORAL HEALTH COMP - Course Vital Signs: Last Vital Signs Temp 36.9 C 03/25/19 00:48 Pulse 123 H 03/25/19 00:48 Resp 18 03/25/19 00:48 BP 165/83 H 03/25/19 00:48 Pulse Ox 97 03/25/19 00:48 Orders, Labs, Meds: Laboratory Tests 03/25/19 03/25/19 03/25/19 Range/Units 01:00 01:00 01:17 WBC 12.0 H (5.0-10.0) 10^3/uL RBC 4.16 L (4.2-5.4) 10^6/uL Hgb 11.3 L (12.0-16.0) g/dL Hct 35.5 L (37.0-47.0) % MCV 85.3 (80-100) fL MCH 27.2 (27.0-34.0) pg MCHC 31.8 L (33.0-35.0) g/dL Plt Count 144 L (150-450) 10^3/uL Neut % (Auto) 63.2 (42.2-75.2) % Lymph % (Auto) 27.8 (20.5-50.1) % [place] % (Auto) 5.5 (2-8) % Eos % (Auto) 3.1 H (1.0-3.0) % Baso % (Auto) 0.4 (0.0-1.0) % Sodium 134 L (135-145) mmol/L Potassium 3.7 (3.6-5.0) mmol/L Chloride 100 L (101-111) mmol/L Carbon Dioxide 24.0 (21.0-31.0) mmol/L Anion Gap 13.7 BUN 15 (7-18) mg/dL Creatinine 0.8 (0.6-1.3) mg/dL Est Cr Clr Drug Dosing TNP Estimated GFR (MDRD) > 60 BUN/Creatinine Ratio 18.75 Glucose 180 H (74-105) mg/dL Calcium 9.8 (8.4-10.2) mg/dl Total Bilirubin 0.5 (0.2-1.0) mg/dL AST 32 (10-42) IU/L ALT 41 (10-60) IU/L Alkaline Phosphatase 63 (42-121) IU/L Total Protein 7.4 (6.7-8.2) g/dl Albumin 3.7 (3.2-5.5) g/dl Globulin 3.7 Albumin/Globulin Ratio 1.00 Urine Color Yellow (YELLOW) Urine Appearance Clear (CLEAR) Urine pH 7.0 (5.0-9.0) Ur Specific [place] 1.020 (1.005-1.030) Urine Protein >=300 H (NEGATIVE) Urine Glucose (UA) Negative (NEGATIVE) Urine Ketones Negative (NEGATIVE) Urine Occult Blood Trace-intact H (NEGATIVE) Urine Nitrite Negative (NEGATIVE) Urine Bilirubin Negative (NEGATIVE) Urine Urobilinogen 0.2 (0.2-1.0) mg/dL Ur Leukocyte Esterase Negative (NEGATIVE) Urine RBC Not seen /HPF Urine WBC 0-5 (0-5/HPF) /HPF Ur Epithelial Cells Few (NOT SEEN) /HPF Urine Bacteria Few (0-FEW/HPF) /HPF Urine HCG, Qual Salicylates < 4 mg/dL Urine Opiates Screen (NEGATIVE) Ur Oxycodone Screen (NEGATIVE) Urine Methadone Screen (NEGATIVE) Acetaminophen < 10 ug/mL Ur Barbiturates Screen (NEGATIVE) U Tricyclic Antidepress (NEGATIVE) Ur Phencyclidine Scrn (NEGATIVE) Ur Amphetamine Screen (NEGATIVE) U Methamphetamines Scrn (NEGATIVE) Urine MDMA Screen (NEGATIVE) U Benzodiazepines Scrn (NEGATIVE) Urine Cocaine Screen (NEGATIVE) U Marijuana (THC) Screen (NEGATIVE) Ethyl Alcohol < 5 mg/dL 03/25/19 03/25/19 Range/Units 01:17 01:17 WBC (5.0-10.0) 10^3/uL RBC (4.2-5.4) 10^6/uL Hgb (12.0-16.0) g/dL Hct (37.0-47.0) % MCV (80-100) fL MCH (27.0-34.0) pg MCHC (33.0-35.0) g/dL Plt Count (150-450) 10^3/uL Neut % (Auto) (42.2-75.2) % Lymph % (Auto) (20.5-50.1) % [place] % (Auto) (2-8) % Eos % (Auto) (1.0-3.0) % Baso % (Auto) (0.0-1.0) % Sodium (135-145) mmol/L Potassium (3.6-5.0) mmol/L Chloride (101-111) mmol/L Carbon Dioxide (21.0-31.0) mmol/L Anion Gap BUN (7-18) mg/dL Creatinine (0.6-1.3) mg/dL Est Cr Clr Drug Dosing Estimated GFR (MDRD) BUN/Creatinine Ratio Glucose (74-105) mg/dL Calcium (8.4-10.2) mg/dl Total Bilirubin (0.2-1.0) mg/dL AST (10-42) IU/L ALT (10-60) IU/L Alkaline Phosphatase (42-121) IU/L Total Protein (6.7-8.2) g/dl Albumin (3.2-5.5) g/dl Globulin Albumin/Globulin Ratio Urine Color (YELLOW) Urine Appearance (CLEAR) Urine pH (5.0-9.0) Ur Specific [place] (1.005-1.030) Urine Protein (NEGATIVE) Urine Glucose (UA) (NEGATIVE) Urine Ketones (NEGATIVE) Urine Occult Blood (NEGATIVE) Urine Nitrite (NEGATIVE) Urine Bilirubin (NEGATIVE) Urine Urobilinogen (0.2-1.0) mg/dL Ur Leukocyte Esterase (NEGATIVE) Urine RBC /HPF Urine WBC (0-5/HPF) /HPF Ur Epithelial Cells (NOT SEEN) /HPF Urine Bacteria (0-FEW/HPF) /HPF Urine HCG, Qual Negative Salicylates mg/dL Urine Opiates Screen Negative (NEGATIVE) Ur Oxycodone Screen Negative (NEGATIVE) Urine Methadone Screen Negative (NEGATIVE) Acetaminophen ug/mL Ur Barbiturates Screen Negative (NEGATIVE) U Tricyclic Antidepress Negative (NEGATIVE) Ur Phencyclidine Scrn Negative (NEGATIVE) Ur Amphetamine Screen Negative (NEGATIVE) U Methamphetamines Scrn Negative (NEGATIVE) Urine MDMA Screen Negative (NEGATIVE) U Benzodiazepines Scrn Positive H (NEGATIVE) Urine Cocaine Screen Negative (NEGATIVE) U Marijuana (THC) Screen Negative (NEGATIVE) Ethyl Alcohol mg/dL Medications Discontinued Medications Generic Name Dose Route Start Last Admin Trade Name Freq PRN Reason Stop Dose Admin Acetaminophen 325 mg 03/25/19 01:55 03/25/19 01:59 Tylenol PO 03/25/19 01:56 325 mg NOW ONE Administration Re-Assessment/Re-Exam: mental health arrived evaluated pt and discussed plan with family Departure - Departure Time of Disposition: 03:01 Disposition: Home, Self-Care 01 Condition: Good Clinical Impression: Reaction, situational, acute, to stress - Discharge Information Forms: ED Department Discharge Additional Instructions: 1) follow up with mental health tomorrow Sepsis Event Note - Evaluation Sepsis Screening Result: No Definite Risk - Focused Exam Vital Signs: Vital Signs Temp Pulse Resp BP Pulse Ox 03/25/19 00:48 36.9 C 123 H 18 165/83 H 97 Date Exam was Performed: 03/25/19 Time Exam was Performed: 03:02
== END 2019-03-25 03:07 | disposition home or self-care (01) ==
LOC: DL.ED 00:48
DX: F43.9 Reaction to severe stress, unspecified (principal); E11.9 Type 2 diabetes mellitus without complications; E03.9 Hypothyroidism, unspecified; F41.9 Anxiety disorder, unspecified; F32.9 Major depressive disorder, single episode, unspecified; Z79.4 Long term (current) use of insulin; Z79.899 Other long term (current) drug therapy
CPT/HCPCS: 36415; 80053; 80305; 81001; 81025; 85025; 99283; A9270; G0480

== ENCOUNTER 2020-03-12 05:20 | Day surgery (SDC) | payer MEDICARE ==
[2020-03-12] MEDS ORDERED: fentaNYL 100 MCG/2 ML SDV IV ONE ×5 (05:21→06:47)
[2020-03-12] MEDS ORDERED: Midazolam 1 MG/ML 2 ML SDV IV ONE ×7 (05:21→06:42)
[2020-03-12] MEDS ORDERED: Midazolam 1 MG/ML 2 ML SDV ONE (05:43)
[2020-03-12] MEDS ORDERED: fentaNYL 100 MCG/2 ML SDV ONE (05:43)
[2020-03-12] MEDS ORDERED: Dextrose 5%-0.45% NaCl 1,000 ML IV SCH (06:00)
[2020-03-12] MEDS ORDERED: Sodium Chloride 0.9% 10 ML Syringe FLUSH PRN (06:00)
[2020-03-12 07:53] VITALS: BP 119/50; PULSE 69
--- NOTE | 2020-03-12 09:07 | OR ---
DATE: 03/12/2020 PROCEDURE: Total colonoscopy and cold snare polypectomy. INSTRUMENT USED: CF-HQ190 Olympus video colonoscope. PREMEDICATIONS: Fentanyl 150 mcg intravenous, Versed 4 mg intravenous. The procedure was done under pulse oximetry, BP recording, and cardiac exercise physiologist. INDICATION: The patient with rectal bleeding and iron-deficiency anemia. Colonoscopic examination is done for detection of any polypoid lesions and removal, endoscopic hemostasis therapy if needed. DESCRIPTION OF PROCEDURE: Initial rectal exam was unremarkable. Rigid anoscopy showed small internal hemorrhoids without bleeding from them. The colonoscope was passed with ease. Photograph was taken of the rectum showing 5 mm sized polyp, cold snare polypectomy was done, the tissue was retrieved and sent for histopathology. The colonoscope was passed up to the ileocecal area. Photographs were taken of the normal-appearing cecum identified by landmarks of appendiceal orifice and double-bulged ileocecal folds. The examination was technically difficult, long redundant colon making the exam prolonged. The bowel preparation was found to be adequate, [place] scale 2 in all the regions, total number 6. No stricture. No vascular ectasia. No large isolated ulcerations seen. No evidence of diffuse inflammatory bowel disease in the form of friability, contact bleeding, or ulcerations. Probing the proximal sides of folds and flexures using adequate distention and clearing up the stool material withdrawal of the scope was made, cecum to rectum time over 6 minutes. No bleeding was noted from any of the visualized areas at the completion of examination. IMPRESSION: 1. Internal hemorrhoids. 2. Rectal polyp. The patient tolerated the procedure well. [facility] /[id number]
== END 2020-03-12 09:36 | disposition home or self-care (01) ==
LOC: DL.ENDO 05:20
PROVIDERS: ATTEND Internal Medicine Gastroenterology
DX: D12.8 Benign neoplasm of rectum (principal); D50.9 Iron deficiency anemia, unspecified; K64.8 Other hemorrhoids; E66.09 Other obesity due to excess calories; E11.9 Type 2 diabetes mellitus without complications; E78.5 Hyperlipidemia, unspecified; E55.9 Vitamin D deficiency, unspecified; Z79.899 Other long term (current) drug therapy; Z79.4 Long term (current) use of insulin
CPT/HCPCS: 45385; J2250; J3010; J7042; 88305

== ENCOUNTER 2020-04-02 06:07 | Day surgery (SDC) | payer MEDICARE, MEDICAID ==
[~2020-04-02 06:07] MED LIST: Dextrose 5%-0.45% NaCl 1,000 ML IV SCH; Sodium Chloride 0.9% 10 ML Syringe FLUSH PRN
[2020-04-02] MEDS ORDERED: fentaNYL 100 MCG/2 ML SDV IV ONE ×3 (06:08→07:13)
[2020-04-02] MEDS ORDERED: Midazolam 1 MG/ML 2 ML SDV IV ONE ×3 (06:08→07:14)
[2020-04-02] MEDS ORDERED: Midazolam 1 MG/ML 2 ML SDV ONE (06:16)
[2020-04-02] MEDS ORDERED: fentaNYL 100 MCG/2 ML SDV ONE (06:17)
--- NOTE | 2020-04-02 08:16 | OR ---
DATE: 04/02/2020 PROCEDURE: Esophagogastroduodenoscopy and multiple pinch biopsies. INSTRUMENT USED: GIF-HQ190 Olympus video panendoscope. PREMEDICATIONS: No oral or topical anesthesia used. Fentanyl 100 mcg intravenous, Versed 2 mg intravenous. Nasal O2 cannula. The procedure was done under pulse oximetry, BP recording, and ekg monitor. INDICATION: The patient with iron-deficiency anemia. Esophagogastroduodenoscopy is performed for detection of any active erosive lesions, Alonzo's esophagus and/or malignancy also under consideration, H. pylori status to be determined, small bowel biopsies to be obtained for celiac disease if indicated, endoscopic hemostasis therapy if needed. DESCRIPTION OF PROCEDURE: The scope was passed with ease. Adequate visualization of the esophagus was made from proximal to distal areas. No upper esophageal lesions identified. No distal esophageal stricture. No uphill or downhill esophageal varices. No [place]-Ramirez tear. No evidence of erosive esophagitis by [place] criteria. No esophageal polyp or tumor mass identified. Z-line was seen at around 39 cm distal to the oral verge, configuration consistent with grade 1 by ZAP classification. No proximal gastric varices noted. Gastric fundus examination by retroflexion showed no polypoid lesions. No gastric ulcer, malignant mass, or vascular ectasia identified. Gastric antral erosion was noted without bleeding from them. Duodenal bulb showed multiple erosions without bleeding. Visualized 2nd part of duodenum was unremarkable. Multiple pinch biopsies, 4 in number were taken from different areas of the second part of the duodenum and tissues were also obtained from the duodenal bulb at 9 and 12 o'clock positions and sent for any histopathologic evidence of celiac disease. Multiple pinch biopsies were taken from the gastric antral erosion and proximal gastric body and sent for PyloriTek test for H. pylori as well as histopathology. No bleeding was noted from any of the visualized areas at the completion of the examination. Photographs were taken of the duodenal bulb, gastric antrum, fundus, and distal esophagus. IMPRESSION: 1. Duodenal bulb erosions. 2. Gastric antral erosion. The patient tolerated the procedure well. [facility] /[id number]
[2020-04-02 10:11] VITALS: BP 110/50; PULSE 64
== END 2020-04-02 09:32 | disposition home or self-care (01) ==
LOC: DL.ENDO 06:07
PROVIDERS: ATTEND Internal Medicine Gastroenterology
DX: K29.50 Unspecified chronic gastritis without bleeding (principal); D50.9 Iron deficiency anemia, unspecified; K25.9 Gastric ulcer, unspecified as acute or chronic, without hemorrhage or perforation; K26.9 Duodenal ulcer, unspecified as acute or chronic, without hemorrhage or perforation; A04.8 Other specified bacterial intestinal infections; I78.1 Nevus, non-neoplastic; E66.09 Other obesity due to excess calories; J44.9 Chronic obstructive pulmonary disease, unspecified; E11.9 Type 2 diabetes mellitus without complications; E78.5 Hyperlipidemia, unspecified; E55.9 Vitamin D deficiency, unspecified; R80.9 Proteinuria, unspecified
CPT/HCPCS: 43239; 87077; 88305; 88342; J2250; J3010; J7042

== ENCOUNTER 2020-07-22 18:07 | Emergency (ER) | payer MEDICARE, MEDICAID ==
[2020-07-22 19:08] VITALS: BP 152/70; PULSE 105
[2020-07-22] MEDS ORDERED: 50% Dextrose in Water 50 ML Syringe IV PRN (19:46)
[2020-07-22] MEDS ORDERED: Glucagon,Human Recombinant 1 MG Vial IM PRN (19:46)
[2020-07-22] MEDS ORDERED: Insulin Regular, Human 100 Units/ML 3 ML Vial SUBCUT ONE (19:46)
[2020-07-22 20:03] LABS: ANION GAP 12.1 mEq/L (7-13); CHLORIDE,CL 100 mmol/L (98-107); SODIUM,NA 138 mmol/L (136-145)
[2020-07-22 20:06] LABS: ACETAMINOPHEN 0 ug/mL (10-30 (Therapeutic))
--- NOTE | 2020-07-22 21:22 | EDM.PDOCBH ---
ED HPI GENERAL MEDICAL PROBLEM - General Chief Complaint: Behavioral/Psych Stated Complaint: PSYCH EVAL TRANSFER Time Seen by Provider: 07/22/20 19:20 Source of Information: Reports: Patient, Other History Limitations: Reports: No Limitations - History of Present Illness INITIAL COMMENTS - FREE TEXT/NARRATIVE: ED ambulatory. Patient reports that she needs to be admitted to psych place due to suicidal thoughts, Has seen counselor and psychiatrist recommended admission. Has planned to take meds, reports feeling urges to cut when around sharp items. Records with patient note recent change in medication, [place] stopped due to elevating creatinine and some decline in MH status since. Medical hx significant for IDDM. Reports compliance with insulin. - Related Data Allergies Allergy/AdvReac Type Severity Reaction Status Date / Time No Known Allergies Allergy Verified 07/22/20 18:59 Home Meds: Home Meds Insulin Detemir [Levemir] 40 unit SQ BID 08/10/14 [History] atorvaSTATin [Lipitor] 40 mg PO BEDTIME 08/10/14 [History] glipiZIDE [Glucotrol XL] 10 mg PO BID 08/10/14 [History] Fenofibric Acid (Choline) [Fenofibric Acid] 145 mg PO DAILY 09/05/15 [History] Levothyroxine [Synthroid] 88 mcg PO ACBREAKFAST 09/05/15 [History] [place] Carbonate 450 - 900 mg PO BID 09/05/15 [History] lamoTRIgine [Lamictal] 25 mg PO BEDTIME 09/05/15 [History] risperiDONE [Risperdal] 1 mg PO BID 09/05/15 [History] LORazepam 0.5 mg PO BID 08/23/16 [History] Acetaminophen 650 mg PO Q6H PRN 03/10/20 [History] Celecoxib [CeleBREX] 100 mg PO BID 03/10/20 [History] Ferrous Sulfate [Feosol] 325 mg PO ACBREAKFAST 03/10/20 [History] Insulin Aspart [NovoLOG] 7 units SQ TIDMEALS 03/10/20 [History] Magnesium Oxide [Magnesium] 400 mg PO DAILY 03/10/20 [History] Multivitamin with Minerals [Multivitamins with Minerals] 1 tab PO DAILY 03/10/20 [History] Wells-3/DHA/Epa/Fish Oil [Wells-3 Fish Oil 1,000 MG Sfgl] 2,000 mg PO BID 03/10/20 [History] QUEtiapine [SEROquel] 100 mg PO BEDTIME 03/10/20 [History] lisinopriL [Lisinopril] 2.5 mg PO DAILY 03/10/20 [History] metFORMIN HCl [Metformin HCl] 1,000 mg PO BIDMEALS 03/10/20 [History] Past Medical History HEENT History: Reports: Impaired Vision, Other (See Below) Other HEENT History: WEARS CORRECTIVE LENS Cardiovascular History: Reports: High Cholesterol Respiratory History: Reports: COPD Gastrointestinal History: Reports: Chronic Constipation Genitourinary History: Reports: None BRIGHT CUTTER History: Reports: Other BRIGHT CUTTER History: Vaginal PG 3x in past. S/P STD Musculoskeletal History: Reports: Back Pain, Chronic Neurological History: Reports: Other (See Below) Other Neuro History: INTELLECTUAL DISABILITY Psychiatric History: Reports: Anxiety, Bipolar, Depression, Suicidal Ideation Other Psychiatric History: schizoaffective disorder Endocrine/Metabolic History: Reports: Diabetes, Type II, Hypothyroidism, Obesity/BMI 30+, Vitamin D Deficiency Hematologic History: Reports: Anemia, Iron Deficiency Immunologic History: Reports: None Oncologic (Cancer) History: Reports: None Dermatologic History: Reports: None - Infectious Disease History Infectious Disease History: Reports: Chicken Pox - Past Surgical History Head Surgeries/Procedures: Reports: None HEENT Surgical History: Reports: None Cardiovascular Surgical History: Reports: None Respiratory Surgical History: Reports: None GI Surgical History: Reports: Colonoscopy Female Surgical History: Reports: Other (See Below) Other Female Surgeries/Procedures: S/P CERVIX LESION REMOVAL Endocrine Surgical History: Reports: None Neurological Surgical History: Reports: None Musculoskeletal Surgical History: Reports: None Oncologic Surgical History: Reports: None Dermatological Surgical History: Reports: None Social & Family History - Family History Family Medical History: No Pertinent Family History - Tobacco Use Tobacco Use Status *Q: Never Tobacco User - Caffeine Use Caffeine Use: Reports: Coffee Other Caffeine Use: NONE - Recreational Drug Use Recreational Drug Use: No - Living Situation & Occupation Living situation: Reports: Single, with Family Occupation: Disabled ED ROS GENERAL - Review of Systems Review Of Systems: Comprehensive ROS is negative, except as noted in HPI. ED EXAM, BEHAVIORAL HEALTH - Physical Exam Exam: See Below Exam Limited By: No Limitations General Appearance: Alert, Anxious, Obese Eye Exam: Bilateral Eye: EOMI Ears: Normal External Exam, Hearing Grossly Normal Nose: Normal Inspection Throat/Mouth: Normal Inspection Head: Atraumatic, Normocephalic Neck: Full Range of Motion Respiratory/Chest: No Respiratory Distress Cardiovascular: Normal Peripheral Pulses Extremities: Normal Range of Motion Neurological: Alert, Normal Cognition, Oriented x 3 Psychiatric: Normal Cognition, Oriented, Depressed Mood, Restless, Suicidal Thoughts. No: Homicidal Thoughts, Auditory Hallucinations, Threatening Behavior Skin Exam: Warm, Dry, Intact, Normal color COURSE, BEHAVIORAL HEALTH COMP - Course Vital Signs: Last Vital Signs Temp 98.2 F 07/22/20 19:07 Pulse 105 H 07/22/20 19:07 Resp 16 07/22/20 19:07 BP 152/70 H 07/22/20 19:07 Pulse Ox 97 07/22/20 19:07 Orders, Labs, Meds: Laboratory Tests 07/22/20 07/22/20 07/22/20 Range/Units 19:01 19:01 19:01 WBC (5.0-10.0) 10^3/uL RBC (4.2-5.4) 10^6/uL Hgb (12.0-16.0) g/dL Hct (37.0-47.0) % MCV (80-100) fL MCH (27.0-34.0) pg MCHC (33.0-35.0) g/dL Plt Count (150-450) 10^3/uL Neut % (Auto) (42.2-75.2) % Lymph % (Auto) (20.5-50.1) % Divide % (Auto) (2-8) % Eos % (Auto) (1.0-3.0) % Baso % (Auto) (0.0-1.0) % Sodium 138 (136-145) mmol/L Potassium 4.1 (3.5-5.1) mmol/L Chloride 100 (98-107) mmol/L Carbon Dioxide 30 (21-32) mmol/L Anion Gap 12.1 (7-13) mEq/L BUN 23 H (7-18) mg/dL Creatinine 1.17 H (0.55-1.02) mg/dL Est Cr Clr Drug Dosing 48.53 mL/min Estimated GFR (MDRD) 50 BUN/Creatinine Ratio 19.7 (No establ ref range) Glucose 418 H* (70-99) mg/dL POC Glucose (70-99) mg/dL Calcium 8.6 (8.5-10.1) mg/dL Total Bilirubin 0.2 (0.2-1.0) mg/dL AST 11 L (15-37) U/L ALT 38 (14-59) U/L Alkaline Phosphatase 50 (46-116) U/L Total Protein 7.5 (6.4-8.2) g/dL Albumin 3.6 (3.4-5.0) g/dL Globulin 3.9 Albumin/Globulin Ratio 0.9 TSH, Ultra Sensitive 0.66 (0.36-3.74) uIU/mL HCG, Qual Negative Urine Color Yellow (YELLOW) Urine Appearance Slightly cloudy (CLEAR) Urine pH 5.5 (5.0-9.0) Ur Specific Phillips 1.020 (1.005-1.030) Urine Protein 30 H (NEGATIVE) Urine Glucose (UA) >=1000 H (NEGATIVE) Urine Ketones Negative (NEGATIVE) Urine Occult Blood Negative (NEGATIVE) Urine Nitrite Negative (NEGATIVE) Urine Bilirubin Negative (NEGATIVE) Urine Urobilinogen 0.2 (0.2-1.0) mg/dL Ur Leukocyte Esterase Negative (NEGATIVE) Urine RBC 0-5 /HPF Urine WBC 0-5 (0-5/HPF) /HPF Ur Epithelial Cells Few (NOT SEEN) /HPF Urine Bacteria Rare (0-FEW/HPF) /HPF Urine Mucus Rare (NOT SEEN) /LPF Salicylates < 2.8 L (2.8-20(Therapeutic)) mg/dL Urine Opiates Screen (NEGATIVE) Ur Oxycodone Screen (NEGATIVE) Urine Methadone Screen (NEGATIVE) Acetaminophen 0 L (10-30 (Therapeutic)) ug/mL Ur Barbiturates Screen (NEGATIVE) U Tricyclic Antidepress (NEGATIVE) Ur Phencyclidine Scrn (NEGATIVE) Ur Amphetamine Screen (NEGATIVE) U Methamphetamines Scrn (NEGATIVE) Urine MDMA Screen (NEGATIVE) U Benzodiazepines Scrn (NEGATIVE) Urine Cocaine Screen (NEGATIVE) U Marijuana (THC) Screen (NEGATIVE) SARS-CoV-2 RNA (MAMIE) (NEGATIVE) 07/22/20 07/22/20 07/22/20 Range/Units 19:09 19:10 19:21 WBC 6.2 (5.0-10.0) 10^3/uL RBC 4.20 (4.2-5.4) 10^6/uL Hgb 11.2 L (12.0-16.0) g/dL Hct 35.2 L (37.0-47.0) % MCV 83.8 (80-100) fL MCH 26.7 L (27.0-34.0) pg MCHC 31.8 L (33.0-35.0) g/dL Plt Count 123 L (150-450) 10^3/uL Neut % (Auto) 58.9 (42.2-75.2) % Lymph % (Auto) 31.9 (20.5-50.1) % Divide % (Auto) 5.5 (2-8) % Eos % (Auto) 2.9 (1.0-3.0) % Baso % (Auto) 0.8 (0.0-1.0) % Sodium (136-145) mmol/L Potassium (3.5-5.1) mmol/L Chloride (98-107) mmol/L Carbon Dioxide (21-32) mmol/L Anion Gap (7-13) mEq/L BUN (7-18) mg/dL Creatinine (0.55-1.02) mg/dL Est Cr Clr Drug Dosing mL/min Estimated GFR (MDRD) BUN/Creatinine Ratio (No establ ref range) Glucose (70-99) mg/dL POC Glucose 402 H* (70-99) mg/dL Calcium (8.5-10.1) mg/dL Total Bilirubin (0.2-1.0) mg/dL AST (15-37) U/L ALT (14-59) U/L Alkaline Phosphatase (46-116) U/L Total Protein (6.4-8.2) g/dL Albumin (3.4-5.0) g/dL Globulin Albumin/Globulin Ratio TSH, Ultra Sensitive (0.36-3.74) uIU/mL HCG, Qual Urine Color (YELLOW) Urine Appearance (CLEAR) Urine pH (5.0-9.0) Ur Specific Phillips (1.005-1.030) Urine Protein (NEGATIVE) Urine Glucose (UA) (NEGATIVE) Urine Ketones (NEGATIVE) Urine Occult Blood (NEGATIVE) Urine Nitrite (NEGATIVE) Urine Bilirubin (NEGATIVE) Urine Urobilinogen (0.2-1.0) mg/dL Ur Leukocyte Esterase (NEGATIVE) Urine RBC /HPF Urine WBC (0-5/HPF) /HPF Ur Epithelial Cells (NOT SEEN) /HPF Urine Bacteria (0-FEW/HPF) /HPF Urine Mucus (NOT SEEN) /LPF Salicylates (2.8-20(Therapeutic)) mg/dL Urine Opiates Screen Negative (NEGATIVE) Ur Oxycodone Screen Negative (NEGATIVE) Urine Methadone Screen Negative (NEGATIVE) Acetaminophen (10-30 (Therapeutic)) ug/mL Ur Barbiturates Screen Negative (NEGATIVE) U Tricyclic Antidepress Negative (NEGATIVE) Ur Phencyclidine Scrn Negative (NEGATIVE) Ur Amphetamine Screen Negative (NEGATIVE) U Methamphetamines Scrn Negative (NEGATIVE) Urine MDMA Screen Negative (NEGATIVE) U Benzodiazepines Scrn Positive H (NEGATIVE) Urine Cocaine Screen Negative (NEGATIVE) U Marijuana (THC) Screen Negative (NEGATIVE) SARS-CoV-2 RNA (MAMIE) (NEGATIVE) 07/22/20 Range/Units 19:25 WBC (5.0-10.0) 10^3/uL RBC (4.2-5.4) 10^6/uL Hgb (12.0-16.0) g/dL Hct (37.0-47.0) % MCV (80-100) fL MCH (27.0-34.0) pg MCHC (33.0-35.0) g/dL Plt Count (150-450) 10^3/uL Neut % (Auto) (42.2-75.2) % Lymph % (Auto) (20.5-50.1) % Divide % (Auto) (2-8) % Eos % (Auto) (1.0-3.0) % Baso % (Auto) (0.0-1.0) % Sodium (136-145) mmol/L Potassium (3.5-5.1) mmol/L Chloride (98-107) mmol/L Carbon Dioxide (21-32) mmol/L Anion Gap (7-13) mEq/L BUN (7-18) mg/dL Creatinine (0.55-1.02) mg/dL Est Cr Clr Drug Dosing mL/min Estimated GFR (MDRD) BUN/Creatinine Ratio (No establ ref range) Glucose (70-99) mg/dL POC Glucose (70-99) mg/dL Calcium (8.5-10.1) mg/dL Total Bilirubin (0.2-1.0) mg/dL AST (15-37) U/L ALT (14-59) U/L Alkaline Phosphatase (46-116) U/L Total Protein (6.4-8.2) g/dL Albumin (3.4-5.0) g/dL Globulin Albumin/Globulin Ratio TSH, Ultra Sensitive (0.36-3.74) uIU/mL HCG, Qual Urine Color (YELLOW) Urine Appearance (CLEAR) Urine pH (5.0-9.0) Ur Specific Phillips (1.005-1.030) Urine Protein (NEGATIVE) Urine Glucose (UA) (NEGATIVE) Urine Ketones (NEGATIVE) Urine Occult Blood (NEGATIVE) Urine Nitrite (NEGATIVE) Urine Bilirubin (NEGATIVE) Urine Urobilinogen (0.2-1.0) mg/dL Ur Leukocyte Esterase (NEGATIVE) Urine RBC /HPF Urine WBC (0-5/HPF) /HPF Ur Epithelial Cells (NOT SEEN) /HPF Urine Bacteria (0-FEW/HPF) /HPF Urine Mucus (NOT SEEN) /LPF Salicylates (2.8-20(Therapeutic)) mg/dL Urine Opiates Screen (NEGATIVE) Ur Oxycodone Screen (NEGATIVE) Urine Methadone Screen (NEGATIVE) Acetaminophen (10-30 (Therapeutic)) ug/mL Ur Barbiturates Screen (NEGATIVE) U Tricyclic Antidepress (NEGATIVE) Ur Phencyclidine Scrn (NEGATIVE) Ur Amphetamine Screen (NEGATIVE) U Methamphetamines Scrn (NEGATIVE) Urine MDMA Screen (NEGATIVE) U Benzodiazepines Scrn (NEGATIVE) Urine Cocaine Screen (NEGATIVE) U Marijuana (THC) Screen (NEGATIVE) SARS-CoV-2 RNA (MAMIE) Negative (NEGATIVE) Medications Discontinued Medications Generic Name Dose Route Start Last Admin Trade Name Freq PRN Reason Stop Dose Admin Dextrose/Water 50 ml 07/22/20 19:46 50% Dextrose In Water 50 Ml Syringe IV Q15M PRN Hypoglycemia Glucagon 1 mg 07/22/20 19:46 Glucagon,Human Recombinant 1 Mg Vial IM Q15M PRN Hypoglycemia Insulin Human Regular 10 unit 07/22/20 19:46 07/22/20 19:52 Insulin Regular, Human 100 Units/Ml 3 Ml Vial SUBCUT 07/22/20 19:47 10 units ONETIME ONE Administration Protocol Re-Assessment/Re-Exam: No bed available at [facility] No bed availability at [place], Current counselor at bedside [facility] counselor Rosendo Walker . Paperwork and labs to be faxed for Needs assessment process. Patient remains cooperative with staff.quiet. Departure - Departure Time of Disposition: 21:37 Disposition: DC/Tfer to [facility] Condition: Fair Clinical Impression: Suicidal ideation, Reaction, situational, acute, to stress - Discharge Information *PRESCRIPTION DRUG MONITORING PROGRAM REVIEWED*: No *COPY OF PRESCRIPTION DRUG MONITORING REPORT IN PATIENT RAI: No Instructions: Suicidal Feelings: How to Help Yourself Referrals: PCP,None [Primary Care Provider] - Forms: ED Department Discharge Additional Instructions: Follow safety paln Awaiting bed status with Andres Walker Continue surrent home medications Glucose monitoring 4 times daily and as needed (Patient received 10 units regular Insulin in ED) Sepsis Event Note (ED) - Evaluation Sepsis Screening Result: No Definite Risk
== END 2020-07-22 21:45 ==
LOC: DL.ED 18:07
DX: F32.9 Major depressive disorder, single episode, unspecified (principal); F43.0 Acute stress reaction; E78.00 Pure hypercholesterolemia, unspecified; J44.9 Chronic obstructive pulmonary disease, unspecified; E11.9 Type 2 diabetes mellitus without complications; E03.9 Hypothyroidism, unspecified; Z79.4 Long term (current) use of insulin; Z79.899 Other long term (current) drug therapy; Z20.822 Contact with and (suspected) exposure to COVID-19
CPT/HCPCS: 36415; 80053; 80143; 80179; 80305-QW; 81001; 82947; 84443; 84703; 85025; 99283; 99284; J1815-GY; U0002

== ENCOUNTER 2020-08-23 12:11 | Emergency (ER) | payer MEDICARE, MEDICAID | END 2020-08-23 12:15 | disposition left against medical advice (07) | LOC: DL.ED 12:11 | DX: Z53.21 Procedure and treatment not carried out due to patient leaving prior to being seen by health care provider (principal) ==

== ENCOUNTER 2020-12-12 13:10 | Emergency (ER) | payer MEDICARE, MEDICAID ==
--- NOTE | 2020-12-12 13:31 | EDM.PDOCBH ---
ED HPI GENERAL MEDICAL PROBLEM - General Chief Complaint: Behavioral/Psych Stated Complaint: THREATING TO COMMIT SUICIDE Time Seen by Provider: 12/12/20 13:31 Source of Information: Reports: Patient, Old Records, RN, RN Notes Reviewed History Limitations: Reports: Altered Mental Status - History of Present Illness INITIAL COMMENTS - FREE TEXT/NARRATIVE: Pt presents to ER by POV with c/o feeling suicidal with a plan to kill herself with her medications or "deadly tools". Pt states that for 2 to 3 days she has had constant thoughts of suicide. She admits to hearing voices that command her to kill herself. She states that the voices keep saying, "kill Maryse". She hears the voices even more if she closes her eyes. She hears people talking even when no one seem to be there. She hears voices saying that they are coming for her, and discussing what "level of hell" she will be going to once they kill her, or get her to kill herself. Pt states she is trying to manage her own medications, but she is certain that she has been "messing up" the doses. Pt claims the voices have given her "the plan" to kill herself. She wants to go to a psych. facility to write the plan down. Onset: Unknown/Unsure Duration: Recurring Severity: Severe Associated Symptoms: Reports: No Other Symptoms Lower Abdomen Pain Score (Numeric/FACES): 3 - Related Data Allergies Allergy/AdvReac Type Severity Reaction Status Date / Time No Known Allergies Allergy Verified 07/22/20 18:59 Home Meds: Home Meds Insulin Detemir [Levemir] 40 unit SQ BID 08/10/14 [History] atorvaSTATin [Lipitor] 40 mg PO BEDTIME 08/10/14 [History] glipiZIDE [Glucotrol XL] 10 mg PO BID 08/10/14 [History] Fenofibric Acid (Choline) [Fenofibric Acid] 145 mg PO DAILY 09/05/15 [History] Levothyroxine [Synthroid] 88 mcg PO ACBREAKFAST 09/05/15 [History] [place] Carbonate 450 - 900 mg PO BID 09/05/15 [History] lamoTRIgine [Lamictal] 25 mg PO BEDTIME 09/05/15 [History] risperiDONE [Risperdal] 1 mg PO BID 09/05/15 [History] LORazepam 0.5 mg PO BID 08/23/16 [History] Acetaminophen 650 mg PO Q6H PRN 03/10/20 [History] Celecoxib [CeleBREX] 100 mg PO BID 03/10/20 [History] Ferrous Sulfate [Feosol] 325 mg PO ACBREAKFAST 03/10/20 [History] Insulin Aspart [NovoLOG] 7 units SQ TIDMEALS 03/10/20 [History] Magnesium Oxide [Magnesium] 400 mg PO DAILY 03/10/20 [History] Multivitamin with Minerals [Multivitamins with Minerals] 1 tab PO DAILY 03/10/20 [History] [place]-3/DHA/Epa/Fish Oil [[place]-3 Fish Oil 1,000 MG Sfgl] 2,000 mg PO BID 03/10/20 [History] QUEtiapine [SEROquel] 100 mg PO BEDTIME 03/10/20 [History] lisinopriL [Lisinopril] 2.5 mg PO DAILY 03/10/20 [History] metFORMIN HCl [Metformin HCl] 1,000 mg PO BIDMEALS 03/10/20 [History] Past Medical History HEENT History: Reports: Impaired Vision, Other (See Below) Other HEENT History: WEARS CORRECTIVE LENS Cardiovascular History: Reports: High Cholesterol Respiratory History: Reports: COPD Gastrointestinal History: Reports: Chronic Constipation Genitourinary History: Reports: None 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 S/P STD Musculoskeletal History: Reports: Back Pain, Chronic Neurological History: Reports: Other (See Below) Other Neuro History: INTELLECTUAL DISABILITY Psychiatric History: Reports: Anxiety, Bipolar, Depression, Suicidal Ideation Other Psychiatric History: schizoaffective disorder Endocrine/Metabolic History: Reports: Diabetes, Type II, Hypothyroidism, Obesity/BMI 30+, Vitamin D Deficiency Hematologic History: Reports: Anemia, Iron Deficiency Immunologic History: Reports: None Oncologic (Cancer) History: Reports: None Dermatologic History: Reports: None - Infectious Disease History Infectious Disease History: Reports: Chicken Pox - Past Surgical History Head Surgeries/Procedures: Reports: None HEENT Surgical History: Reports: None Cardiovascular Surgical History: Reports: None Respiratory Surgical History: Reports: None GI Surgical History: Reports: Colonoscopy Female Surgical History: Reports: Other (See Below) Other Female Surgeries/Procedures: S/P CERVIX LESION REMOVAL Endocrine Surgical History: Reports: None Neurological Surgical History: Reports: None Musculoskeletal Surgical History: Reports: None Oncologic Surgical History: Reports: None Dermatological Surgical History: Reports: None Social & Family History - Family History Family Medical History: No Pertinent Family History - Caffeine Use Caffeine Use: Reports: Coffee Other Caffeine Use: NONE - Living Situation & Occupation Living situation: Reports: Single, with Family Occupation: Disabled ED ROS GENERAL - Review of Systems Review Of Systems: Comprehensive ROS is negative, except as noted in HPI. ED EXAM, BEHAVIORAL HEALTH - Physical Exam Exam: See Below Exam Limited By: No Limitations General Appearance: Alert, WD/WN, No Apparent Distress, Anxious, Obese Eye Exam: Bilateral Eye: EOMI, Normal Inspection, PERRL Ears: Normal External Exam, Hearing Grossly Normal Nose: Normal Inspection Throat/Mouth: Normal Voice, No Airway Compromise Head: Atraumatic, Normocephalic Neck: Normal Inspection Respiratory/Chest: No Respiratory Distress, Lungs Clear Cardiovascular: Regular Rate, Rhythm, No Edema GI/Abdominal: Normal Bowel Sounds, Soft, Non-Tender Back Exam: Normal Inspection Extremities: Normal Inspection, Normal Range of Motion, Normal Capillary Refill Neurological: Alert, CN II-XII Intact, Normal Gait, No Motor/Sensory Deficits, Oriented x 3 Psychiatric: Flat Affect, Suicidal Plan, Suicidal Thoughts, Auditory Hallucinations, Visual Hallucinations, Paranoid Thoughts. No: Homicidal Thoughts, Phobic, Scientologist Delusions, Tangential Thoughts, Pressured Speech, Threatening Behavior Skin Exam: Warm, Dry, Intact, Normal color, No rash COURSE, BEHAVIORAL HEALTH COMP - Course Vital Signs: Last Vital Signs Temp 98.4 F 12/12/20 16:33 Pulse 84 12/12/20 16:33 Resp 16 12/12/20 16:33 BP 150/81 H 12/12/20 16:33 Pulse Ox 95 12/12/20 16:33 Orders, Labs, Meds: Active Orders 24 hr Category Date Time Status Suicide Precautions [RC] .Per Facility Policy Care 12/12/20 13:40 Active Consult to Behavioral Health [Behavioral Health Cons 12/12/20 13:31 Active Evaluation] [CONS] Routine CORONAVIRUS COVID-19 [facility] [MOLEC] Stat Lab 12/12/20 13:32 Ordered CULTURE URINE [RM] Stat Lab 12/12/20 13:44 Received Suicide Precautions BH [BH] Stat Oth 12/12/20 13:31 Ordered Laboratory Tests 12/12/20 12/12/20 12/12/20 Range/Units 13:44 13:44 13:44 WBC (5.0-10.0) 10^3/uL RBC (4.2-5.4) 10^6/uL Hgb (12.0-16.0) g/dL Hct (37.0-47.0) % MCV (80-100) fL MCH (27.0-34.0) pg MCHC (33.0-35.0) g/dL Plt Count (150-450) 10^3/uL Neut % (Auto) (42.2-75.2) % Lymph % (Auto) (20.5-50.1) % Pratt % (Auto) (2-8) % Eos % (Auto) (1.0-3.0) % Baso % (Auto) (0.0-1.0) % Sodium (136-145) mmol/L Potassium (3.5-5.1) mmol/L Chloride (98-107) mmol/L Carbon Dioxide (21-32) mmol/L Anion Gap (7-13) mEq/L BUN (7-18) mg/dL Creatinine (0.55-1.02) mg/dL Est Cr Clr Drug Dosing mL/min Estimated GFR (MDRD) BUN/Creatinine Ratio (No establ ref range) Glucose (70-99) mg/dL Calcium (8.5-10.1) mg/dL Magnesium (1.8-2.4) mg/dL Total Bilirubin (0.2-1.0) mg/dL AST (15-37) U/L ALT (14-59) U/L Alkaline Phosphatase (46-116) U/L Total Protein (6.4-8.2) g/dL Albumin (3.4-5.0) g/dL Globulin Albumin/Globulin Ratio TSH, Ultra Sensitive (0.36-3.74) uIU/mL Urine Color Yellow (YELLOW) Urine Appearance Slightly cloudy (CLEAR) Urine pH 6.5 (5.0-9.0) Ur Specific [place] 1.020 (1.005-1.030) Urine Protein 100 H (NEGATIVE) Urine Glucose (UA) Negative (NEGATIVE) Urine Ketones Negative (NEGATIVE) Urine Occult Blood Negative (NEGATIVE) Urine Nitrite Negative (NEGATIVE) Urine Bilirubin Negative (NEGATIVE) Urine Urobilinogen 0.2 (0.2-1.0) mg/dL Ur Leukocyte Esterase Trace H (NEGATIVE) Urine RBC 0-5 (0-5) /HPF Urine WBC 5-10 H (0-5/HPF) /HPF Ur Epithelial Cells Moderate H (NOT SEEN) /HPF Amorphous Sediment Few (NOT SEEN) /HPF Urine Bacteria Few (0-FEW/HPF) /HPF Urine Mucus Rare (NOT SEEN) /LPF Urine HCG, Qual Negative Salicylates (2.8-20(Therapeutic)) mg/dL Urine Opiates Screen Negative (NEGATIVE) Ur Oxycodone Screen Negative (NEGATIVE) Urine Methadone Screen Negative (NEGATIVE) Acetaminophen (10-30 (Therapeutic)) ug/mL Ur Barbiturates Screen Negative (NEGATIVE) U Tricyclic Antidepress Negative (NEGATIVE) Ur Phencyclidine Scrn Negative (NEGATIVE) Ur Amphetamine Screen Negative (NEGATIVE) U Methamphetamines Scrn Negative (NEGATIVE) Urine MDMA Screen Negative (NEGATIVE) U Benzodiazepines Scrn Negative (NEGATIVE) Urine Cocaine Screen Negative (NEGATIVE) U Marijuana (THC) Screen Negative (NEGATIVE) Ethyl Alcohol (0) mg/dL 12/12/20 12/12/20 12/12/20 Range/Units 13:53 13:53 13:53 WBC 9.1 (5.0-10.0) 10^3/uL RBC 4.46 (4.2-5.4) 10^6/uL Hgb 12.0 (12.0-16.0) g/dL Hct 37.4 (37.0-47.0) % MCV 83.9 (80-100) fL MCH 26.9 L (27.0-34.0) pg MCHC 32.1 L (33.0-35.0) g/dL Plt Count 165 (150-450) 10^3/uL Neut % (Auto) 69.4 (42.2-75.2) % Lymph % (Auto) 24.5 (20.5-50.1) % Pratt % (Auto) 4.6 (2-8) % Eos % (Auto) 1.1 (1.0-3.0) % Baso % (Auto) 0.4 (0.0-1.0) % Sodium 140 (136-145) mmol/L Potassium 4.1 (3.5-5.1) mmol/L Chloride 102 (98-107) mmol/L Carbon Dioxide 28 (21-32) mmol/L Anion Gap 14.1 H (7-13) mEq/L BUN 20 H (7-18) mg/dL Creatinine 1.19 H (0.55-1.02) mg/dL Est Cr Clr Drug Dosing 47.22 mL/min Estimated GFR (MDRD) 49 BUN/Creatinine Ratio 16.8 (No establ ref range) Glucose 190 H (70-99) mg/dL Calcium 9.2 (8.5-10.1) mg/dL Magnesium 1.7 L (1.8-2.4) mg/dL Total Bilirubin 0.5 (0.2-1.0) mg/dL AST 20 (15-37) U/L ALT 34 (14-59) U/L Alkaline Phosphatase 44 L (46-116) U/L Total Protein 8.4 H (6.4-8.2) g/dL Albumin 4.0 (3.4-5.0) g/dL Globulin 4.4 Albumin/Globulin Ratio 0.91 TSH, Ultra Sensitive 0.90 (0.36-3.74) uIU/mL Urine Color (YELLOW) Urine Appearance (CLEAR) Urine pH (5.0-9.0) Ur Specific [place] (1.005-1.030) Urine Protein (NEGATIVE) Urine Glucose (UA) (NEGATIVE) Urine Ketones (NEGATIVE) Urine Occult Blood (NEGATIVE) Urine Nitrite (NEGATIVE) Urine Bilirubin (NEGATIVE) Urine Urobilinogen (0.2-1.0) mg/dL Ur Leukocyte Esterase (NEGATIVE) Urine RBC (0-5) /HPF Urine WBC (0-5/HPF) /HPF Ur Epithelial Cells (NOT SEEN) /HPF Amorphous Sediment (NOT SEEN) /HPF Urine Bacteria (0-FEW/HPF) /HPF Urine Mucus (NOT SEEN) /LPF Urine HCG, Qual Salicylates < 2.8 L (2.8-20(Therapeutic)) mg/dL Urine Opiates Screen (NEGATIVE) Ur Oxycodone Screen (NEGATIVE) Urine Methadone Screen (NEGATIVE) Acetaminophen 0 L (10-30 (Therapeutic)) ug/mL Ur Barbiturates Screen (NEGATIVE) U Tricyclic Antidepress (NEGATIVE) Ur Phencyclidine Scrn (NEGATIVE) Ur Amphetamine Screen (NEGATIVE) U Methamphetamines Scrn (NEGATIVE) Urine MDMA Screen (NEGATIVE) U Benzodiazepines Scrn (NEGATIVE) Urine Cocaine Screen (NEGATIVE) U Marijuana (THC) Screen (NEGATIVE) Ethyl Alcohol < 3 (0) mg/dL Medical Clearance: 12/12/20 14:00 Pt is medically clear for DCR/Crisis evaluation. Discharge vs Psych Eval/Treatment:: 12/12/20 17:18 Pt to be admitted to the [facility]. Departure - Departure Time of Disposition: 17:18 Disposition: DC/Tfer to Psych Hosp/Unit 65 Condition: Good Clinical Impression: Acute psychosis, Denise, Suicidal thoughts - Discharge Information *PRESCRIPTION DRUG MONITORING PROGRAM REVIEWED*: No *COPY OF PRESCRIPTION DRUG MONITORING REPORT IN PATIENT RAI: No Instructions: Psychosis, Denise, Suicidal Feelings: How to Help Yourself Forms: ED Department Discharge Additional Instructions: Go to [facility]. Take your medications exactly as prescribed. Sepsis Event Note (ED) - Focused Exam Vital Signs: Vital Signs Temp Pulse Resp BP Pulse Ox 12/12/20 16:33 98.4 F 84 16 150/81 H 95 12/12/20 15:18 98.2 F 87 18 148/76 H 97 12/12/20 14:19 85 18 134/74 96 12/12/20 13:22 97.5 F 84 16 147/70 H 98 - My Orders Last 24 Hours: My Active Orders 12/12/20 13:31 Consult to Behavioral Health [Behavioral Health Evaluation] [CONS] Routine Suicide Precautions [BH] Stat 12/12/20 13:32 CORONAVIRUS COVID-19 [facility] [MOLEC] Stat 12/12/20 13:40 Suicide Precautions [RC] .Per Facility Policy 12/12/20 13:44 CULTURE URINE [RM] Stat - Assessment/Plan Last 24 Hours: My Active Orders 12/12/20 13:31 Consult to Behavioral Health [Behavioral Health Evaluation] [CONS] Routine Suicide Precautions BH [BH] Stat 12/12/20 13:32 CORONAVIRUS COVID-19 MAMIE [MOLEC] Stat 12/12/20 13:40 Suicide Precautions [RC] .Per Facility Policy 12/12/20 13:44 CULTURE URINE [RM] Stat
[2020-12-12 14:03] LABS: AMPHETAMINES,URINE NEGATIVE (NEGATIVE); BARBITURATES,URINE NEGATIVE (NEGATIVE); BENZODIAZEPINE,URINE NEGATIVE (NEGATIVE); MDMA (ECSTASY), URINE NEGATIVE (NEGATIVE); METHADONE,URINE NEGATIVE (NEGATIVE); METHAMPHETAMINES,URINE NEGATIVE (NEGATIVE); OPIATES,URINE NEGATIVE (NEGATIVE); OXYCODONE,URINE NEGATIVE (NEGATIVE); PHENCYCLIDINE,URINE NEGATIVE (NEGATIVE); TCA,URINE NEGATIVE (NEGATIVE)
[2020-12-12 14:17] LABS: ANION GAP 14.1 mEq/L (7-13); CHLORIDE,CL 102 mmol/L (98-107); SODIUM,NA 140 mmol/L (136-145)
[2020-12-12 14:40] LABS: ACETAMINOPHEN 0 ug/mL (10-30 (Therapeutic))
[2020-12-12 16:34] VITALS: BP 150/81; PULSE 84
[2020-12-12] MEDS ORDERED: diphenhydrAMINE 50 MG/ML SDV IM ONE (17:35)
[2020-12-12] MEDS ORDERED: Haloperidol Lactate 5 MG/ML SDV IM ONE (17:36)
[2020-12-12] MEDS ORDERED: LORazepam 2 MG/ML SDV IM ONE (17:36)
== END 2020-12-12 20:10 ==
LOC: DL.ED 13:10
DX: F23 Brief psychotic disorder (principal); F30.9 Manic episode, unspecified; R45.851 Suicidal ideations; E78.00 Pure hypercholesterolemia, unspecified; J44.9 Chronic obstructive pulmonary disease, unspecified; E11.9 Type 2 diabetes mellitus without complications; E66.9 Obesity, unspecified; E03.9 Hypothyroidism, unspecified; Z79.4 Long term (current) use of insulin; Z79.84 Long term (current) use of oral hypoglycemic drugs; Z79.899 Other long term (current) drug therapy; Z68.35 Body mass index [BMI] 35.0-35.9, adult
CPT/HCPCS: 36415; 80053; 80143; 80179; 80305; 80307; 81001; 81025; 83735; 84443; 85025; 87086; 96372; 99285; J1200; J1630; J2060

== ENCOUNTER 2020-12-21 05:38 | Emergency (ER) | payer MEDICARE, MEDICAID ==
--- NOTE | 2020-12-21 05:55 | EDM.PDOCBH ---
ED HPI GENERAL MEDICAL PROBLEM - General Chief Complaint: Behavioral/Psych Stated Complaint: AMBULANCE Time Seen by Provider: 12/21/20 05:49 Source of Information: Reports: Patient - History of Present Illness INITIAL COMMENTS - FREE TEXT/NARRATIVE: Pt reports she is here because she is wanting to hurt herself. She has had these thoughts for the last week. She has no one in her life that she feels like she can talk to about her feelings. She reports she has been taking her medications through yesterday. She denies taking any other medications, alcohol or recreational drugs. She has no plan and no access to weapons. She has a history of self harm and thoughts of self harm. She has been hospitalized before and would like to be hospitalized this time. - Related Data Allergies Allergy/AdvReac Type Severity Reaction Status Date / Time No Known Allergies Allergy Verified 07/22/20 18:59 Home Meds: Home Meds Insulin Detemir [Levemir] 40 unit SQ BID 08/10/14 [History] atorvaSTATin [Lipitor] 40 mg PO BEDTIME 08/10/14 [History] glipiZIDE [Glucotrol XL] 10 mg PO BID 08/10/14 [History] Fenofibric Acid (Choline) [Fenofibric Acid] 145 mg PO DAILY 09/05/15 [History] Levothyroxine [Synthroid] 88 mcg PO ACBREAKFAST 09/05/15 [History] [place] Carbonate 450 - 900 mg PO BID 09/05/15 [History] lamoTRIgine [Lamictal] 25 mg PO BEDTIME 09/05/15 [History] risperiDONE [Risperdal] 1 mg PO BID 09/05/15 [History] LORazepam 0.5 mg PO BID 08/23/16 [History] Acetaminophen 650 mg PO Q6H PRN 03/10/20 [History] Celecoxib [CeleBREX] 100 mg PO BID 03/10/20 [History] Ferrous Sulfate [Feosol] 325 mg PO ACBREAKFAST 03/10/20 [History] Insulin Aspart [NovoLOG] 7 units SQ TIDMEALS 03/10/20 [History] Magnesium Oxide [Magnesium] 400 mg PO DAILY 03/10/20 [History] Multivitamin with Minerals [Multivitamins with Minerals] 1 tab PO DAILY 03/10/20 [History] [place]-3/DHA/Epa/Fish Oil [[place]-3 Fish Oil 1,000 MG Sfgl] 2,000 mg PO BID 03/10/20 [History] QUEtiapine [SEROquel] 100 mg PO BEDTIME 03/10/20 [History] lisinopriL [Lisinopril] 2.5 mg PO DAILY 03/10/20 [History] metFORMIN HCl [Metformin HCl] 1,000 mg PO BIDMEALS 03/10/20 [History] Past Medical History HEENT History: Reports: Impaired Vision, Other (See Below) Other HEENT History: WEARS CORRECTIVE LENS Cardiovascular History: Reports: High Cholesterol Respiratory History: Reports: COPD Gastrointestinal History: Reports: Chronic Constipation Genitourinary History: Reports: None 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 S/P STD Musculoskeletal History: Reports: Back Pain, Chronic Neurological History: Reports: Other (See Below) Other Neuro History: INTELLECTUAL DISABILITY Psychiatric History: Reports: Anxiety, Bipolar, Depression, Suicidal Ideation Other Psychiatric History: schizoaffective disorder Endocrine/Metabolic History: Reports: Diabetes, Type II, Hypothyroidism, Obesity/BMI 30+, Vitamin D Deficiency Hematologic History: Reports: Anemia, Iron Deficiency Immunologic History: Reports: None Oncologic (Cancer) History: Reports: None Dermatologic History: Reports: None - Infectious Disease History Infectious Disease History: Reports: Chicken Pox - Past Surgical History Head Surgeries/Procedures: Reports: None HEENT Surgical History: Reports: None Cardiovascular Surgical History: Reports: None Respiratory Surgical History: Reports: None GI Surgical History: Reports: Colonoscopy Female Surgical History: Reports: Other (See Below) Other Female Surgeries/Procedures: S/P CERVIX LESION REMOVAL Endocrine Surgical History: Reports: None Neurological Surgical History: Reports: None Musculoskeletal Surgical History: Reports: None Oncologic Surgical History: Reports: None Dermatological Surgical History: Reports: None Social & Family History - Family History Family Medical History: No Pertinent Family History - Caffeine Use Caffeine Use: Reports: Soda Other Caffeine Use: NONE - Living Situation & Occupation Living situation: Reports: Single, with Family Occupation: Disabled ED ROS GENERAL - Review of Systems Review Of Systems: See Below Constitutional: Denies: Fever, Chills, Weakness, Fatigue HEENT: Denies: Ear Pain, Eye Pain, Rhinitis, Sinus Problem, Throat Pain, Throat Swelling Respiratory: Denies: Shortness of Breath, Wheezing, Cough Cardiovascular: Denies: Chest Pain, Dyspnea on Exertion, Edema Endocrine: Denies: Fatigue GI/Abdominal: Denies: Abdominal Pain, Constipation, Diarrhea, Nausea, Vomiting : Denies: Dysuria, Frequency, Incontinence, Urgency Musculoskeletal: Denies: Joint Pain, Joint Swelling, Muscle Pain, Muscle Stiffness Skin: Denies: Rash, Wound, Change in Color, Lesions Neurological: Denies: Confusion, Dizziness, Headache Psychiatric: Reports: Depression, Suicidal Ideation. Denies: Agitation, Anxiety Hematologic/Lymphatic: Reports: No Symptoms Immunologic: Reports: No Symptoms ED EXAM, BEHAVIORAL HEALTH - Physical Exam Exam: See Below Exam Limited By: No Limitations General Appearance: Alert, WD/WN, No Apparent Distress Eye Exam: Bilateral Eye: Normal Inspection Ears: Normal External Exam Throat/Mouth: Normal Inspection, Normal Voice, No Airway Compromise Head: Atraumatic, Normocephalic Neck: Supple, Non-Tender Respiratory/Chest: No Respiratory Distress, Lungs Clear, Normal Breath Sounds, No Accessory Muscle Use. No: Crackles, Wheezing Cardiovascular: Normal Peripheral Pulses, Regular Rate, Rhythm, No Murmur GI/Abdominal: Normal Bowel Sounds, Soft, No Distention. No: Guarding, Rebound (Female) Exam: Deferred Rectal (Female) Exam: Deferred Back Exam: Normal Inspection, Full Range of Motion Extremities: Normal Inspection, Normal Range of Motion, No Pedal Edema Neurological: Alert, Normal Cognition, Normal Reflexes, No Motor/Sensory Deficits, Oriented x 3 Psychiatric: Depressed Mood, Flat Affect, Suicidal Thoughts Skin Exam: Warm, Dry, Intact, Normal color, No rash COURSE, BEHAVIORAL HEALTH COMP - Course Vital Signs: Last Vital Signs Temp 97.2 F 12/21/20 05:52 Pulse 90 12/21/20 05:52 Resp 18 12/21/20 05:52 BP 120/74 12/21/20 05:52 Pulse Ox 95 12/21/20 05:52 Orders, Labs, Meds: Laboratory Tests 12/21/20 12/21/20 Range/Units 06:19 06:19 Urine HCG, Qual Negative Urine Opiates Screen Negative (NEGATIVE) Ur Oxycodone Screen Negative (NEGATIVE) Urine Methadone Screen Negative (NEGATIVE) Ur Barbiturates Screen Negative (NEGATIVE) U Tricyclic Antidepress Negative (NEGATIVE) Ur Phencyclidine Scrn Negative (NEGATIVE) Ur Amphetamine Screen Negative (NEGATIVE) U Methamphetamines Scrn Negative (NEGATIVE) Urine MDMA Screen Negative (NEGATIVE) U Benzodiazepines Scrn Negative (NEGATIVE) Urine Cocaine Screen Negative (NEGATIVE) U Marijuana (THC) Screen Negative (NEGATIVE) Re-Assessment/Re-Exam: Human resource nurse came and spoke with the pt. She is in agreement to going to the [facility] for further treatment and care. Pt discharged to their facility in stable condition. 12/21/20 06:38 Departure - Departure Time of Disposition: 06:36 Disposition: DC/Tfer to Other 70 Condition: Fair Clinical Impression: Depressive disorder - Discharge Information *PRESCRIPTION DRUG MONITORING PROGRAM REVIEWED*: No *COPY OF PRESCRIPTION DRUG MONITORING REPORT IN PATIENT RAI: No Forms: ED Department Discharge Sepsis Event Note (ED) - Focused Exam Vital Signs: Vital Signs Temp Pulse Resp BP Pulse Ox 12/21/20 05:52 97.2 F 90 18 120/74 95
[2020-12-21 06:00] VITALS: BP 120/74; PULSE 90
[2020-12-21 06:27] LABS: AMPHETAMINES,URINE NEGATIVE (NEGATIVE); BARBITURATES,URINE NEGATIVE (NEGATIVE); BENZODIAZEPINE,URINE NEGATIVE (NEGATIVE); MDMA (ECSTASY), URINE NEGATIVE (NEGATIVE); METHADONE,URINE NEGATIVE (NEGATIVE); METHAMPHETAMINES,URINE NEGATIVE (NEGATIVE); OPIATES,URINE NEGATIVE (NEGATIVE); OXYCODONE,URINE NEGATIVE (NEGATIVE); PHENCYCLIDINE,URINE NEGATIVE (NEGATIVE); TCA,URINE NEGATIVE (NEGATIVE)
== END 2020-12-21 06:45 | disposition other institution (70) ==
LOC: DL.ED 05:38
DX: F32.9 Major depressive disorder, single episode, unspecified (principal); E78.00 Pure hypercholesterolemia, unspecified; J44.9 Chronic obstructive pulmonary disease, unspecified; E11.9 Type 2 diabetes mellitus without complications; E03.9 Hypothyroidism, unspecified; D50.9 Iron deficiency anemia, unspecified; E66.9 Obesity, unspecified; Z68.34 Body mass index [BMI] 34.0-34.9, adult; Z79.4 Long term (current) use of insulin; Z79.899 Other long term (current) drug therapy
CPT/HCPCS: 80305-QW; 81025; 99285

== ENCOUNTER 2020-12-31 18:52 | Emergency (ER) | payer MEDICARE, MEDICAID ==
--- NOTE | 2020-12-31 19:59 | EDM.PDOCBH ---
ED HPI GENERAL MEDICAL PROBLEM - General Chief Complaint: Behavioral/Psych Stated Complaint: SUICIDAL AND HOMICIDAL, WITH LAW ENFORCEMENT Time Seen by Provider: 12/31/20 19:52 Source of Information: Reports: Patient - History of Present Illness INITIAL COMMENTS - FREE TEXT/NARRATIVE: Pt is here for suicidal ideation. She was recently in the [facility] and was just discharged yesterday. She reports she felt like she was doing good, until today. She denies any trigger for the changes in her mood. She feels like she might have a split personality. She does admit she doesn't care for her neighbors, but doesn't attribute that to the cause of her worsening mood. She admits to wanting to kill herself by taking all of her psychiatric medications. Onset: Today - Related Data Allergies Allergy/AdvReac Type Severity Reaction Status Date / Time No Known Allergies Allergy Verified 12/31/20 19:16 Home Meds: Home Meds Insulin Detemir [Levemir] 40 unit SQ BID 08/10/14 [History] atorvaSTATin [Lipitor] 40 mg PO BEDTIME 08/10/14 [History] glipiZIDE [Glucotrol XL] 10 mg PO BID 08/10/14 [History] Fenofibric Acid (Choline) [Fenofibric Acid] 145 mg PO DAILY 09/05/15 [History] Levothyroxine [Synthroid] 88 mcg PO ACBREAKFAST 09/05/15 [History] [place] Carbonate 450 - 900 mg PO BID 09/05/15 [History] lamoTRIgine [Lamictal] 25 mg PO BEDTIME 09/05/15 [History] risperiDONE [Risperdal] 1 mg PO BID 09/05/15 [History] LORazepam 0.5 mg PO BID 08/23/16 [History] Acetaminophen 650 mg PO Q6H PRN 03/10/20 [History] Celecoxib [CeleBREX] 100 mg PO BID 03/10/20 [History] Ferrous Sulfate [Feosol] 325 mg PO ACBREAKFAST 03/10/20 [History] Insulin Aspart [NovoLOG] 7 units SQ TIDMEALS 03/10/20 [History] Magnesium Oxide [Magnesium] 400 mg PO DAILY 03/10/20 [History] Multivitamin with Minerals [Multivitamins with Minerals] 1 tab PO DAILY 03/10/20 [History] [place]-3/DHA/Epa/Fish Oil [[place]-3 Fish Oil 1,000 MG Sfgl] 2,000 mg PO BID 03/10/20 [History] QUEtiapine [SEROquel] 100 mg PO BEDTIME 03/10/20 [History] lisinopriL [Lisinopril] 2.5 mg PO DAILY 03/10/20 [History] metFORMIN HCl [Metformin HCl] 1,000 mg PO BIDMEALS 03/10/20 [History] Past Medical History HEENT History: Reports: Impaired Vision, Other (See Below) Other HEENT History: WEARS CORRECTIVE LENS Cardiovascular History: Reports: High Cholesterol Respiratory History: Reports: COPD Gastrointestinal History: Reports: Chronic Constipation Genitourinary History: Reports: None FOOD SERVICES COORDINATOR History: Reports: Other FOOD SERVICES COORDINATOR History: Vaginal PG 3x in past. S/P STD Musculoskeletal History: Reports: Back Pain, Chronic Neurological History: Reports: Other (See Below) Other Neuro History: INTELLECTUAL DISABILITY Psychiatric History: Reports: Anxiety, Bipolar, Depression, Suicidal Ideation Other Psychiatric History: schizoaffective disorder Endocrine/Metabolic History: Reports: Diabetes, Type II, Hypothyroidism, Obesity/BMI 30+, Vitamin D Deficiency Hematologic History: Reports: Anemia, Iron Deficiency Immunologic History: Reports: None Oncologic (Cancer) History: Reports: None Dermatologic History: Reports: None - Infectious Disease History Infectious Disease History: Reports: Chicken Pox - Past Surgical History Head Surgeries/Procedures: Reports: None HEENT Surgical History: Reports: None Cardiovascular Surgical History: Reports: None Respiratory Surgical History: Reports: None GI Surgical History: Reports: Colonoscopy Female Surgical History: Reports: Other (See Below) Other Female Surgeries/Procedures: S/P CERVIX LESION REMOVAL Endocrine Surgical History: Reports: None Neurological Surgical History: Reports: None Musculoskeletal Surgical History: Reports: None Oncologic Surgical History: Reports: None Dermatological Surgical History: Reports: None Social & Family History - Family History Family Medical History: No Pertinent Family History - Tobacco Use Tobacco Use Status *Q: Never Tobacco User - Caffeine Use Caffeine Use: Reports: Soda Other Caffeine Use: NONE - Recreational Drug Use Recreational Drug Use: No - Living Situation & Occupation Living situation: Reports: Single, with Family Occupation: Disabled ED ROS GENERAL - Review of Systems Review Of Systems: Comprehensive ROS is negative, except as noted in HPI. ED EXAM, BEHAVIORAL HEALTH - Physical Exam Exam: See Below Exam Limited By: No Limitations General Appearance: Alert, WD/WN, No Apparent Distress Eye Exam: Bilateral Eye: Normal Inspection Ears: Normal External Exam Throat/Mouth: Normal Voice, No Airway Compromise Head: Atraumatic, Normocephalic Neck: Normal Inspection, Supple Respiratory/Chest: No Respiratory Distress, Lungs Clear, Normal Breath Sounds, No Accessory Muscle Use, Chest Non-Tender Cardiovascular: Normal Peripheral Pulses, Regular Rate, Rhythm, No Murmur GI/Abdominal: No Distention (Female) Exam: Deferred Rectal (Female) Exam: Deferred Back Exam: Normal Inspection Extremities: Normal Inspection, No Pedal Edema Neurological: Alert, No Motor/Sensory Deficits, Oriented x 3 Psychiatric: Depressed Mood, Flat Affect, Suicidal Thoughts Skin Exam: Warm, Dry, Intact, Normal color, No rash COURSE, BEHAVIORAL HEALTH COMP - Course Vital Signs: Last Vital Signs Temp 97.6 F 12/31/20 19:12 Pulse 94 12/31/20 19:12 Resp 22 H 12/31/20 19:12 BP 125/49 L 12/31/20 19:12 Pulse Ox 96 12/31/20 19:12 Re-Assessment/Re-Exam: [facility] and will be taken to [facility]. Departure - Departure Time of Disposition: 20:45 Disposition: DC/Tfer to Other 70 Condition: Fair Clinical Impression: Suicidal ideation - Discharge Information *PRESCRIPTION DRUG MONITORING PROGRAM REVIEWED*: Not Applicable *COPY OF PRESCRIPTION DRUG MONITORING REPORT IN PATIENT RAI: Not Applicable Forms: ED Department Discharge Sepsis Event Note (ED) - Evaluation Sepsis Screening Result: No Definite Risk - Focused Exam Vital Signs: Vital Signs Temp Pulse Resp BP Pulse Ox 12/31/20 19:12 97.6 F 94 22 H 125/49 L 96
[2020-12-31 21:09] VITALS: BP 126/65; PULSE 82
== END 2020-12-31 20:58 | disposition other institution (70) ==
LOC: DL.ED 18:52
DX: F32.A Depression, unspecified (principal); E78.00 Pure hypercholesterolemia, unspecified; J44.9 Chronic obstructive pulmonary disease, unspecified; E11.9 Type 2 diabetes mellitus without complications; E03.9 Hypothyroidism, unspecified; E66.9 Obesity, unspecified; Z68.30 Body mass index [BMI] 30.0-30.9, adult; Z79.899 Other long term (current) drug therapy
CPT/HCPCS: 99284

== ENCOUNTER 2021-01-11 17:39 | Emergency (ER) | payer MEDICARE, MEDICAID ==
[2021-01-11 17:52] VITALS: BP 119/61; PULSE 84
--- NOTE | 2021-01-11 17:56 | EDM.PDOC ---
ED HPI GENERAL MEDICAL PROBLEM - General Chief Complaint: General Stated Complaint: NEEDLE STUCK IN STOMACH Time Seen by Provider: 01/11/21 17:53 Source of Information: Reports: Patient, Old Records, RN, RN Notes Reviewed History Limitations: Reports: No Limitations - History of Present Illness INITIAL COMMENTS - FREE TEXT/NARRATIVE: Patient presents after she was taking her evening insulin, using a novolog pen, the insulin would not inject and she believes that the needle may have broken off in her skin. She used the left side of her abdomen. Pt states that no needle could be readily felt. Denies pain, redness or bleeding. Onset: Today Location: Reports: Abdomen Quality: Reports: Other (Denies pain) Improves with: Reports: None Worsens with: Reports: None Associated Symptoms: Reports: No Other Symptoms - Related Data Allergies Allergy/AdvReac Type Severity Reaction Status Date / Time No Known Allergies Allergy Verified 01/11/21 17:52 Home Meds: Home Meds Insulin Detemir [Levemir] 40 unit SQ BID 08/10/14 [History] atorvaSTATin [Lipitor] 40 mg PO BEDTIME 08/10/14 [History] glipiZIDE [Glucotrol XL] 10 mg PO BID 08/10/14 [History] Fenofibric Acid (Choline) [Fenofibric Acid] 145 mg PO DAILY 09/05/15 [History] Levothyroxine [Synthroid] 88 mcg PO ACBREAKFAST 09/05/15 [History] [place] Carbonate 450 - 900 mg PO BID 09/05/15 [History] lamoTRIgine [Lamictal] 25 mg PO BEDTIME 09/05/15 [History] risperiDONE [Risperdal] 1 mg PO BID 09/05/15 [History] LORazepam 0.5 mg PO BID 08/23/16 [History] Acetaminophen 650 mg PO Q6H PRN 03/10/20 [History] Celecoxib [CeleBREX] 100 mg PO BID 03/10/20 [History] Ferrous Sulfate [Feosol] 325 mg PO ACBREAKFAST 03/10/20 [History] Insulin Aspart [NovoLOG] 7 units SQ TIDMEALS 03/10/20 [History] Magnesium Oxide [Magnesium] 400 mg PO DAILY 03/10/20 [History] Multivitamin with Minerals [Multivitamins with Minerals] 1 tab PO DAILY 03/10/20 [History] [place]-3/DHA/Epa/Fish Oil [[place]-3 Fish Oil 1,000 MG Sfgl] 2,000 mg PO BID 03/10/20 [History] QUEtiapine [SEROquel] 100 mg PO BEDTIME 03/10/20 [History] lisinopriL [Lisinopril] 2.5 mg PO DAILY 03/10/20 [History] metFORMIN HCl [Metformin HCl] 1,000 mg PO BIDMEALS 03/10/20 [History] Past Medical History HEENT History: Reports: Impaired Vision, Other (See Below) Other HEENT History: WEARS CORRECTIVE LENS Cardiovascular History: Reports: High Cholesterol Respiratory History: Reports: COPD Gastrointestinal History: Reports: Chronic Constipation Genitourinary History: Reports: None FANCY SEWER History: Reports: Other FANCY SEWER History: Vaginal PG 3x in past. S/P STD Musculoskeletal History: Reports: Back Pain, Chronic Neurological History: Reports: Other (See Below) Other Neuro History: INTELLECTUAL DISABILITY Psychiatric History: Reports: Anxiety, Bipolar, Depression, Suicidal Ideation Other Psychiatric History: schizoaffective disorder Endocrine/Metabolic History: Reports: Diabetes, Type II, Hypothyroidism, Obesity/BMI 30+, Vitamin D Deficiency Hematologic History: Reports: Anemia, Iron Deficiency Immunologic History: Reports: None Oncologic (Cancer) History: Reports: None Dermatologic History: Reports: None - Infectious Disease History Infectious Disease History: Reports: Chicken Pox - Past Surgical History Head Surgeries/Procedures: Reports: None HEENT Surgical History: Reports: None Cardiovascular Surgical History: Reports: None Respiratory Surgical History: Reports: None GI Surgical History: Reports: Colonoscopy Female Surgical History: Reports: Other (See Below) Other Female Surgeries/Procedures: S/P CERVIX LESION REMOVAL Endocrine Surgical History: Reports: None Neurological Surgical History: Reports: None Musculoskeletal Surgical History: Reports: None Oncologic Surgical History: Reports: None Dermatological Surgical History: Reports: None Social & Family History - Family History Family Medical History: No Pertinent Family History - Caffeine Use Caffeine Use: Reports: Soda Other Caffeine Use: NONE - Living Situation & Occupation Living situation: Reports: Single, with Family Occupation: Disabled ED ROS GENERAL - Review of Systems Review Of Systems: Comprehensive ROS is negative, except as noted in HPI. ED EXAM, GENERAL - Physical Exam Exam: See Below Exam Limited By: No Limitations General Appearance: Alert, No Apparent Distress, Obese Respiratory/Chest: No Respiratory Distress GI/Abdominal: Normal Bowel Sounds, Soft, Non-Tender, No Organomegaly, No Distention, No Abnormal Bruit, No Mass Neurological: Alert, Oriented, No Motor/Sensory Deficits Psychiatric: Normal Mood Skin Exam: Warm, Dry, Intact, Normal Color, No Rash, Other (No visible puncture wound. No visible or palpable FB at abdominal wall.) Course - Vital Signs Last Recorded V/S: Last Vital Signs Temp 98.4 F 01/11/21 17:49 Pulse 84 01/11/21 17:49 Resp 18 01/11/21 17:49 BP 119/61 01/11/21 17:49 Pulse Ox 96 01/11/21 17:49 - Orders/Labs/Meds Orders: Active Orders 24 hr Category Date Time Status Abdomen 1V Cross Table Lateral [CR] Stat Exams 01/11/21 17:56 Ordered Abdomen 1V Flat [CR] Stat Exams 01/11/21 17:56 Ordered - Radiology Interpretation Free Text/Narrative:: XR Abdomen Flat and Lateral: no metallic FB at left abdomen, see Rad. report. Departure - Departure Time of Disposition: 18:27 Disposition: Home, Self-Care 01 Condition: Good Clinical Impression: Encounter for medical screening examination - Discharge Information *PRESCRIPTION DRUG MONITORING PROGRAM REVIEWED*: Not Applicable *COPY OF PRESCRIPTION DRUG MONITORING REPORT IN PATIENT RAI: Not Applicable Instructions: Medical Screening Exam Forms: ED Department Discharge Additional Instructions: No needle (metallic foreign body) seen on the abdominal x-ray. Look closely at home to make sure the needle is not on the floor, chair, or in a blanket or clothing. Follow up in clinic if any further concerns. Sepsis Event Note (ED) - Evaluation Sepsis Screening Result: No Definite Risk - Focused Exam Vital Signs: Vital Signs Temp Pulse Resp BP Pulse Ox 01/11/21 17:49 98.4 F 84 18 119/61 96 - My Orders Last 24 Hours: My Active Orders 01/11/21 17:56 Abdomen 1V Cross Table Lateral [CR] Stat Abdomen 1V Flat [CR] Stat - Assessment/Plan Last 24 Hours: My Active Orders 01/11/21 17:56 Abdomen 1V Cross Table Lateral [CR] Stat Abdomen 1V Flat [CR] Stat
--- NOTE | 2021-01-11 19:03 | CR ---
PROCEDURE INFORMATION: Exam: XR Abdomen Exam date and time: 01/11/2021 6:09 PM Age: 45 years old Clinical indication: Screening exam; Other: Suspected insulin needle in left abdominal wall TECHNIQUE: Imaging protocol: XR of the abdomen. Views: 2 Views. Upright and supine views. COMPARISON: No relevant prior studies available. FINDINGS: Gastrointestinal tract: Normal. No bowel dilation. Intraperitoneal space: Normal. No free air. Bones/joints: Unremarkable for age. Soft tissues: There is an arrow head shaped metallic structure seen on multiple views. Whether this is a marker or a radiopaque foreign body can be correlated clinically. Besides this, no radiopaque foreign body. IMPRESSION: There is an arrow head shaped metallic structure seen on multiple views. Whether this is a marker or a radiopaque foreign body can be correlated clinically. Besides this, no radiopaque foreign body.
== END 2021-01-11 18:38 | disposition home or self-care (01) ==
LOC: DL.ED 17:39
DX: Z02.89 Encounter for other administrative examinations (principal); E03.9 Hypothyroidism, unspecified; E11.9 Type 2 diabetes mellitus without complications; E66.9 Obesity, unspecified; J44.9 Chronic obstructive pulmonary disease, unspecified; E78.00 Pure hypercholesterolemia, unspecified; Z68.35 Body mass index [BMI] 35.0-35.9, adult; Z79.4 Long term (current) use of insulin; Z79.899 Other long term (current) drug therapy
CPT/HCPCS: 74021; 99283-25

== ENCOUNTER 2021-01-15 17:27 | Emergency (ER) | payer MEDICARE, MEDICAID ==
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
[2021-01-15] MEDS ORDERED: LORazepam 0.5 MG Tab PO ONE (17:50)
[2021-01-15 18:06] LABS: AMPHETAMINES,URINE NEGATIVE (NEGATIVE); BARBITURATES,URINE NEGATIVE (NEGATIVE); BENZODIAZEPINE,URINE NEGATIVE (NEGATIVE); MDMA (ECSTASY), URINE NEGATIVE (NEGATIVE); METHADONE,URINE NEGATIVE (NEGATIVE); METHAMPHETAMINES,URINE NEGATIVE (NEGATIVE); OPIATES,URINE NEGATIVE (NEGATIVE); OXYCODONE,URINE NEGATIVE (NEGATIVE); PHENCYCLIDINE,URINE NEGATIVE (NEGATIVE); TCA,URINE NEGATIVE (NEGATIVE)
[2021-01-15 18:10] LABS: ANION GAP 12.1 mEq/L (7-13); CHLORIDE,CL 104 mmol/L (98-107); SODIUM,NA 142 mmol/L (136-145)
[2021-01-15 18:12] LABS: ACETAMINOPHEN 0 ug/mL (10-30 (Therapeutic))
[2021-01-15 18:17] VITALS: BP 142/62; PULSE 97
== END 2021-01-15 19:29 | disposition home or self-care (01) ==
LOC: DL.ED 17:27
DX: F43.11 Post-traumatic stress disorder, acute (principal); F60.3 Borderline personality disorder; E78.00 Pure hypercholesterolemia, unspecified; J44.9 Chronic obstructive pulmonary disease, unspecified; E11.9 Type 2 diabetes mellitus without complications; E03.9 Hypothyroidism, unspecified; D64.9 Anemia, unspecified; E66.9 Obesity, unspecified; Z68.34 Body mass index [BMI] 34.0-34.9, adult; Z79.4 Long term (current) use of insulin; Z79.899 Other long term (current) drug therapy; Z20.822 Contact with and (suspected) exposure to COVID-19
CPT/HCPCS: 36415; 80053; 80143; 80179; 80305; 80307; 81001; 81025; 83735; 85025; 87086; 99285; A9270; U0002

== ENCOUNTER 2021-01-17 13:47 | Emergency (ER) | payer MEDICARE, MEDICAID ==
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
[2021-01-17 14:42] LABS: ANION GAP 12.2 mEq/L (7-13); CHLORIDE,CL 106 mmol/L (98-107); SODIUM,NA 142 mmol/L (136-145)
[2021-01-17 14:43] LABS: AMPHETAMINES,URINE NEGATIVE (NEGATIVE); BARBITURATES,URINE NEGATIVE (NEGATIVE); BENZODIAZEPINE,URINE NEGATIVE (NEGATIVE); MDMA (ECSTASY), URINE NEGATIVE (NEGATIVE); METHADONE,URINE NEGATIVE (NEGATIVE); METHAMPHETAMINES,URINE NEGATIVE (NEGATIVE); OPIATES,URINE NEGATIVE (NEGATIVE); OXYCODONE,URINE NEGATIVE (NEGATIVE); PHENCYCLIDINE,URINE NEGATIVE (NEGATIVE); TCA,URINE NEGATIVE (NEGATIVE)
[2021-01-17 14:49] LABS: ACETAMINOPHEN 0 ug/mL (10-30 (Therapeutic))
[2021-01-17] MEDS ORDERED: LORazepam 2 MG/ML SDV IM ONE (14:51)
[2021-01-17] MEDS ORDERED: Haloperidol Lactate 5 MG/ML SDV IM ONE (14:51)
== END 2021-01-17 15:03 ==
LOC: DL.ED 13:47
DX: F32.A Depression, unspecified (principal); F60.3 Borderline personality disorder; E78.00 Pure hypercholesterolemia, unspecified; J44.9 Chronic obstructive pulmonary disease, unspecified; E03.9 Hypothyroidism, unspecified; E66.9 Obesity, unspecified; Z79.4 Long term (current) use of insulin; Z79.899 Other long term (current) drug therapy; Z68.38 Body mass index [BMI] 38.0-38.9, adult
CPT/HCPCS: 36415; 80053; 80143; 80179; 80305; 80307; 81001; 81025; 83735; 85025; 87086; 96372; 99285; J1630; J2060

== ENCOUNTER 2021-01-22 18:53 | Emergency (ER) | payer MEDICARE, MEDICAID ==
[2021-01-22 19:08] VITALS: BP 135/81; PULSE 96
--- NOTE | 2021-01-22 19:13 | EDM.PDOC ---
ED HPI GENERAL MEDICAL PROBLEM - General Chief Complaint: Skin Complaint Stated Complaint: BUMP ON PRIVATE Time Seen by Provider: 01/22/21 19:13 Source of Information: Reports: Patient, RN, RN Notes Reviewed - History of Present Illness INITIAL COMMENTS - FREE TEXT/NARRATIVE: Patient is a 45-year-old female who presents to the ER with complaint of a "lump" in her vaginal area. Patient states she just noticed it tonight when she was wiping after using the restroom. Patient denies any fever chills. Patient denies any severe pain, just states this is irritating at this time. Onset: Today Right Buttock Pain Score (Numeric/FACES): 4 - Related Data Allergies Allergy/AdvReac Type Severity Reaction Status Date / Time No Known Allergies Allergy Verified 01/22/21 19:06 Home Meds: Home Meds Insulin Detemir [Levemir] 40 unit SQ BID 08/10/14 [History] atorvaSTATin [Lipitor] 40 mg PO BEDTIME 08/10/14 [History] glipiZIDE [Glucotrol XL] 10 mg PO BID 08/10/14 [History] Fenofibric Acid (Choline) [Fenofibric Acid] 145 mg PO DAILY 09/05/15 [History] Levothyroxine [Synthroid] 88 mcg PO ACBREAKFAST 09/05/15 [History] [place] Carbonate 450 - 900 mg PO BID 09/05/15 [History] lamoTRIgine [Lamictal] 25 mg PO BEDTIME 09/05/15 [History] risperiDONE [Risperdal] 1 mg PO BID 09/05/15 [History] LORazepam 0.5 mg PO BID 08/23/16 [History] Acetaminophen 650 mg PO Q6H PRN 03/10/20 [History] Celecoxib [CeleBREX] 100 mg PO BID 03/10/20 [History] Ferrous Sulfate [Feosol] 325 mg PO ACBREAKFAST 03/10/20 [History] Insulin Aspart [NovoLOG] 7 units SQ TIDMEALS 03/10/20 [History] Magnesium Oxide [Magnesium] 400 mg PO DAILY 03/10/20 [History] Multivitamin with Minerals [Multivitamins with Minerals] 1 tab PO DAILY 03/10/20 [History] [place]-3/DHA/Epa/Fish Oil [[place]-3 Fish Oil 1,000 MG Sfgl] 2,000 mg PO BID 03/10/20 [History] QUEtiapine [SEROquel] 100 mg PO BEDTIME 03/10/20 [History] lisinopriL [Lisinopril] 2.5 mg PO DAILY 03/10/20 [History] metFORMIN HCl [Metformin HCl] 1,000 mg PO BIDMEALS 03/10/20 [History] Past Medical History HEENT History: Reports: Impaired Vision, Other (See Below) Other HEENT History: WEARS CORRECTIVE LENS Cardiovascular History: Reports: High Cholesterol Respiratory History: Reports: COPD Gastrointestinal History: Reports: Chronic Constipation Genitourinary History: Reports: None 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 S/P STD Musculoskeletal History: Reports: Back Pain, Chronic Neurological History: Reports: Other (See Below) Other Neuro History: INTELLECTUAL DISABILITY Psychiatric History: Reports: Aggressive/Hostile Behaviors, Anxiety, Bipolar, Depression, Mood Swings, Suicidal Ideation Other Psychiatric History: schizoaffective disorder Endocrine/Metabolic History: Reports: Diabetes, Type II, Hypothyroidism, Obesity/BMI 30+, Vitamin D Deficiency Hematologic History: Reports: Anemia, Iron Deficiency Immunologic History: Reports: None Oncologic (Cancer) History: Reports: None Dermatologic History: Reports: None - Infectious Disease History Infectious Disease History: Reports: Chicken Pox - Past Surgical History Head Surgeries/Procedures: Reports: None HEENT Surgical History: Reports: None Cardiovascular Surgical History: Reports: None Respiratory Surgical History: Reports: None GI Surgical History: Reports: Colonoscopy Female Surgical History: Reports: Other (See Below) Other Female Surgeries/Procedures: S/P CERVIX LESION REMOVAL Endocrine Surgical History: Reports: None Neurological Surgical History: Reports: None Musculoskeletal Surgical History: Reports: None Oncologic Surgical History: Reports: None Dermatological Surgical History: Reports: None Social & Family History - Family History Family Medical History: No Pertinent Family History - Tobacco Use Tobacco Use Status *Q: Current Every Day Tobacco User Years of Tobacco use: 20 Packs/Tins Daily: 1 Used Tobacco, but Quit: No Second Hand Smoke Exposure: Yes - Caffeine Use Caffeine Use: Reports: Soda Other Caffeine Use: NONE - Recreational Drug Use Recreational Drug Use: No - Living Situation & Occupation Living situation: Reports: Single, with Family Occupation: Disabled ED ROS GENERAL - Review of Systems Review Of Systems: Comprehensive ROS is negative, except as noted in HPI. ED EXAM, SKIN/RASH Exam: See Below Exam Limited By: No Limitations General Appearance: Alert, WD/WN, No Apparent Distress Eye Exam: Bilateral Eye: EOMI, Normal Inspection Ears: Normal External Exam, Hearing Grossly Normal Nose: Normal Inspection Throat/Mouth: Normal Inspection, Normal Voice, No Airway Compromise Head: Atraumatic, Normocephalic Neck: Normal Inspection, Supple, Non-Tender, Full Range of Motion Respiratory/Chest: No Respiratory Distress, Lungs Clear, Normal Breath Sounds, No Accessory Muscle Use, Chest Non-Tender Cardiovascular: Normal Peripheral Pulses, Regular Rate, Rhythm, No Edema, No Gallop, No JVD, No Murmur, No Rub Peripheral Pulses: 2+: Radial (L), Radial (R) GI/Abdominal: Normal Bowel Sounds, Soft, Non-Tender (Female) Exam: Other (small 1cm x 1cm skin abscess without drainage to the right labia majora) Rectal (Female) Exam: Deferred Back Exam: Normal Inspection, Full Range of Motion, NT Extremities: Normal Inspection, Normal Range of Motion, Non-Tender, No Pedal Edema, Normal Capillary Refill Neurological: Alert, Oriented, CN II-XII Intact, Normal Cognition, Normal Gait, Normal Reflexes, No Motor/Sensory Deficits Psychiatric: Normal Affect, Normal Mood Skin: Warm, Dry, Intact, Normal Color, No Rash Location, Skin: Other (paerineum) Characteristics: Other Associated features: No: Warmth, Tenderness Lymphatic: No Adenopathy Course - Vital Signs Last Recorded V/S: Last Vital Signs Temp 97.8 F 01/22/21 19:00 Pulse 96 01/22/21 19:00 Resp 18 01/22/21 19:00 BP 135/81 01/22/21 19:00 Pulse Ox 97 01/22/21 19:00 - Orders/Labs/Meds Meds: Medications Discontinued Medications Generic Name Dose Route Start Last Admin Trade Name Freq PRN Reason Stop Dose Admin Cephalexin 500 mg 01/22/21 19:20 Cephalexin 500 Mg Cap PO 01/22/21 19:21 ONETIME ONE Departure - Departure Time of Disposition: 19:22 Disposition: Home, Self-Care 01 Condition: Good Clinical Impression: Abscess - Discharge Information *PRESCRIPTION DRUG MONITORING PROGRAM REVIEWED*: No *COPY OF PRESCRIPTION DRUG MONITORING REPORT IN PATIENT RAI: No Instructions: Skin Abscess, [id number] Forms: ED Department Discharge Additional Instructions: RX: Cephalexin 500mg orally 3 times daily Return to the ER with any worsening of symptoms Follow up with your primary care facility Sepsis Event Note (ED) - Evaluation Sepsis Screening Result: No Definite Risk - Focused Exam Vital Signs: Vital Signs Temp Pulse Resp BP Pulse Ox 01/22/21 19:00 97.8 F 96 18 135/81 97
[2021-01-22] MEDS ORDERED: Cephalexin 500 MG Cap PO ONE (19:20)
== END 2021-01-22 19:33 | disposition home or self-care (01) ==
LOC: DL.ED 18:53
DX: L02.215 Cutaneous abscess of perineum (principal); E78.00 Pure hypercholesterolemia, unspecified; I10 Essential (primary) hypertension; J44.9 Chronic obstructive pulmonary disease, unspecified; E11.9 Type 2 diabetes mellitus without complications; E03.9 Hypothyroidism, unspecified; E66.9 Obesity, unspecified; Z72.0 Tobacco use; Z79.84 Long term (current) use of oral hypoglycemic drugs; Z79.4 Long term (current) use of insulin; Z79.899 Other long term (current) drug therapy; Z68.35 Body mass index [BMI] 35.0-35.9, adult
CPT/HCPCS: 99282; A9270

== ENCOUNTER 2021-01-26 20:32 | Emergency (ER) | payer MEDICARE, MEDICAID ==
[2021-01-26] MEDS ORDERED: Activated Charcoal/Water Susp 50 GM/240 ML Tube PO ONE (21:01)
[2021-01-26] MEDS ORDERED: Sodium Chloride 0.9% 1,000 ML IV ONE (21:04)
[2021-01-26 21:33] LABS: AMPHETAMINES,URINE NEGATIVE (NEGATIVE); BARBITURATES,URINE NEGATIVE (NEGATIVE); BENZODIAZEPINE,URINE NEGATIVE (NEGATIVE); MDMA (ECSTASY), URINE NEGATIVE (NEGATIVE); METHADONE,URINE NEGATIVE (NEGATIVE); METHAMPHETAMINES,URINE NEGATIVE (NEGATIVE); OPIATES,URINE NEGATIVE (NEGATIVE); OXYCODONE,URINE NEGATIVE (NEGATIVE); PHENCYCLIDINE,URINE NEGATIVE (NEGATIVE); TCA,URINE NEGATIVE (NEGATIVE)
[2021-01-26 21:45] LABS: CHLORIDE,CL 103 mmol/L (98-107); SODIUM,NA 139 mmol/L (136-145)
--- NOTE | 2021-01-28 06:57 | EDM.PDOCBH ---
ED HPI GENERAL MEDICAL PROBLEM - General Chief Complaint: Behavioral/Psych Stated Complaint: AMBULANCE Time Seen by Provider: 01/26/21 20:35 Source of Information: Reports: Patient, EMS, RN History Limitations: Reports: No Limitations - History of Present Illness INITIAL COMMENTS - FREE TEXT/NARRATIVE: ED via [facility] with report of ingesting 13- 1000mg Metformin ETIOLOGIST calling EMS. S tated she felt sad. Patient has hx of similar episodes in past of overdosing on medications. Denies symptoms at present. Poison Control Contacted. Recommendation Monitoring at least 12 hours and administer activated charcoal. - Related Data Allergies Allergy/AdvReac Type Severity Reaction Status Date / Time No Known Allergies Allergy Verified 01/22/21 19:06 Home Meds: Home Meds Insulin Detemir [Levemir] 40 unit SQ BID 08/10/14 [History] atorvaSTATin [Lipitor] 40 mg PO BEDTIME 08/10/14 [History] glipiZIDE [Glucotrol XL] 10 mg PO BID 08/10/14 [History] Fenofibric Acid (Choline) [Fenofibric Acid] 145 mg PO DAILY 09/05/15 [History] Levothyroxine [Synthroid] 88 mcg PO ACBREAKFAST 09/05/15 [History] [place] Carbonate 450 - 900 mg PO BID 09/05/15 [History] lamoTRIgine [Lamictal] 25 mg PO BEDTIME 09/05/15 [History] risperiDONE [Risperdal] 1 mg PO BID 09/05/15 [History] LORazepam 0.5 mg PO BID 08/23/16 [History] Acetaminophen 650 mg PO Q6H PRN 03/10/20 [History] Celecoxib [CeleBREX] 100 mg PO BID 03/10/20 [History] Ferrous Sulfate [Feosol] 325 mg PO ACBREAKFAST 03/10/20 [History] Insulin Aspart [NovoLOG] 7 units SQ TIDMEALS 03/10/20 [History] Magnesium Oxide [Magnesium] 400 mg PO DAILY 03/10/20 [History] Multivitamin with Minerals [Multivitamins with Minerals] 1 tab PO DAILY 03/10/20 [History] [place]-3/DHA/Epa/Fish Oil [[place]-3 Fish Oil 1,000 MG Sfgl] 2,000 mg PO BID 03/10/20 [History] QUEtiapine [SEROquel] 100 mg PO BEDTIME 03/10/20 [History] lisinopriL [Lisinopril] 2.5 mg PO DAILY 03/10/20 [History] metFORMIN HCl [Metformin HCl] 1,000 mg PO BIDMEALS 03/10/20 [History] Past Medical History HEENT History: Reports: Impaired Vision, Other (See Below) Other HEENT History: WEARS CORRECTIVE LENS Cardiovascular History: Reports: High Cholesterol Respiratory History: Reports: COPD Gastrointestinal History: Reports: Chronic Constipation Genitourinary History: Reports: None 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 S/P STD Musculoskeletal History: Reports: Back Pain, Chronic Neurological History: Reports: Other (See Below) Other Neuro History: INTELLECTUAL DISABILITY Psychiatric History: Reports: Aggressive/Hostile Behaviors, Anxiety, Bipolar, Depression, Mood Swings, Suicidal Ideation Other Psychiatric History: schizoaffective disorder Endocrine/Metabolic History: Reports: Diabetes, Type II, Hypothyroidism, Obesity/BMI 30+, Vitamin D Deficiency Hematologic History: Reports: Anemia, Iron Deficiency Immunologic History: Reports: None Oncologic (Cancer) History: Reports: None Dermatologic History: Reports: None - Infectious Disease History Infectious Disease History: Reports: Chicken Pox - Past Surgical History Head Surgeries/Procedures: Reports: None HEENT Surgical History: Reports: None Cardiovascular Surgical History: Reports: None Respiratory Surgical History: Reports: None GI Surgical History: Reports: Colonoscopy Female Surgical History: Reports: Other (See Below) Other Female Surgeries/Procedures: S/P CERVIX LESION REMOVAL Endocrine Surgical History: Reports: None Neurological Surgical History: Reports: None Musculoskeletal Surgical History: Reports: None Oncologic Surgical History: Reports: None Dermatological Surgical History: Reports: None Social & Family History - Family History Family Medical History: No Pertinent Family History - Tobacco Use Tobacco Use Status *Q: Current Every Day Tobacco User Years of Tobacco use: 10 Packs/Tins Daily: 0.5 - Caffeine Use Caffeine Use: Reports: Soda Other Caffeine Use: NONE - Living Situation & Occupation Living situation: Reports: Single, with Family Occupation: Disabled ED ROS GENERAL - Review of Systems Review Of Systems: Comprehensive ROS is negative, except as noted in HPI. ED EXAM, BEHAVIORAL HEALTH - Physical Exam Exam: See Below Exam Limited By: No Limitations General Appearance: Alert, No Apparent Distress Eye Exam: Bilateral Eye: EOMI, PERRL Ears: Normal External Exam Nose: Normal Inspection Throat/Mouth: Normal Inspection, Normal Voice Head: Atraumatic, Normocephalic Neck: Normal Inspection Respiratory/Chest: No Respiratory Distress, Lungs Clear, Normal Breath Sounds Cardiovascular: Normal Peripheral Pulses, Regular Rate, Rhythm GI/Abdominal: Normal Bowel Sounds, Soft, Non-Tender Back Exam: Normal Inspection Extremities: Normal Inspection Neurological: Alert, Normal Mood/Affect, Normal Cognition, Oriented x 3, Opens Eyes to Commands Psychiatric: Alert, Oriented, Flat Affect, Suicidal Thoughts. No: Suicidal Plan Skin Exam: Warm, Dry, Intact, Normal color COURSE, BEHAVIORAL HEALTH COMP - Course Orders, Labs, Meds: Laboratory Tests 01/26/21 01/26/21 01/26/21 Range/Units 20:35 20:35 21:11 WBC 10.8 H (5.0-10.0) 10^3/uL RBC 4.29 (4.2-5.4) 10^6/uL Hgb 11.5 L (12.0-16.0) g/dL Hct 35.4 L (37.0-47.0) % MCV 82.5 (80-100) fL MCH 26.8 L (27.0-34.0) pg MCHC 32.5 L (33.0-35.0) g/dL Plt Count 162 (150-450) 10^3/uL Neut % (Auto) 58.9 (42.2-75.2) % Lymph % (Auto) 34.5 (20.5-50.1) % [place] % (Auto) 4.3 (2-8) % Eos % (Auto) 2.0 (1.0-3.0) % Baso % (Auto) 0.3 (0.0-1.0) % PT (9.0-12.0) SEC INR (0.9-1.2) Sodium (136-145) mmol/L Potassium (3.5-5.1) mmol/L Chloride (98-107) mmol/L Carbon Dioxide (21-32) mmol/L Anion Gap (7-13) mEq/L BUN (7-18) mg/dL Creatinine (0.55-1.02) mg/dL Est Cr Clr Drug Dosing Estimated GFR (MDRD) BUN/Creatinine Ratio (No establ ref range) Glucose (70-99) mg/dL Lactic Acid (0.4-2.0) mmol/L Calcium (8.5-10.1) mg/dL Magnesium (1.8-2.4) mg/dL Total Bilirubin (0.2-1.0) mg/dL AST (15-37) U/L ALT (14-59) U/L Alkaline Phosphatase (46-116) U/L Total Protein (6.4-8.2) g/dL Albumin (3.4-5.0) g/dL Globulin Albumin/Globulin Ratio Urine Color Yellow (YELLOW) Urine Appearance Clear (CLEAR) Urine pH 7.0 (5.0-9.0) Ur Specific [place] 1.015 (1.005-1.030) Urine Protein Negative (NEGATIVE) Urine Glucose (UA) Negative (NEGATIVE) Urine Ketones Negative (NEGATIVE) Urine Occult Blood Negative (NEGATIVE) Urine Nitrite Negative (NEGATIVE) Urine Bilirubin Negative (NEGATIVE) Urine Urobilinogen 0.2 (0.2-1.0) mg/dL Ur Leukocyte Esterase Negative (NEGATIVE) Urine Opiates Screen Negative (NEGATIVE) Ur Oxycodone Screen Negative (NEGATIVE) Urine Methadone Screen Negative (NEGATIVE) Ur Barbiturates Screen Negative (NEGATIVE) U Tricyclic Antidepress Negative (NEGATIVE) Ur Phencyclidine Scrn Negative (NEGATIVE) Ur Amphetamine Screen Negative (NEGATIVE) U Methamphetamines Scrn Negative (NEGATIVE) Urine MDMA Screen Negative (NEGATIVE) U Benzodiazepines Scrn Negative (NEGATIVE) Urine Cocaine Screen Negative (NEGATIVE) U Marijuana (THC) Screen Negative (NEGATIVE) Ethyl Alcohol (0) mg/dL SARS-CoV-2 RNA (MAMIE) (NEGATIVE) 01/26/21 01/26/21 01/26/21 Range/Units 21:11 21:11 21:11 WBC (5.0-10.0) 10^3/uL RBC (4.2-5.4) 10^6/uL Hgb (12.0-16.0) g/dL Hct (37.0-47.0) % MCV (80-100) fL MCH (27.0-34.0) pg MCHC (33.0-35.0) g/dL Plt Count (150-450) 10^3/uL Neut % (Auto) (42.2-75.2) % Lymph % (Auto) (20.5-50.1) % [place] % (Auto) (2-8) % Eos % (Auto) (1.0-3.0) % Baso % (Auto) (0.0-1.0) % PT 9.5 (9.0-12.0) SEC INR 0.9 (0.9-1.2) Sodium 139 (136-145) mmol/L Potassium 4.0 (3.5-5.1) mmol/L Chloride 103 (98-107) mmol/L Carbon Dioxide 25 (21-32) mmol/L Anion Gap 15.0 H (7-13) mEq/L BUN 20 H (7-18) mg/dL Creatinine 1.05 H (0.55-1.02) mg/dL Est Cr Clr Drug Dosing TNP Estimated GFR (MDRD) 57 BUN/Creatinine Ratio 19.0 (No establ ref range) Glucose 102 H (70-99) mg/dL Lactic Acid 2.5 H* (0.4-2.0) mmol/L Calcium 8.6 (8.5-10.1) mg/dL Magnesium 1.5 L (1.8-2.4) mg/dL Total Bilirubin 0.2 (0.2-1.0) mg/dL AST 14 L (15-37) U/L ALT 28 (14-59) U/L Alkaline Phosphatase 40 L (46-116) U/L Total Protein 7.5 (6.4-8.2) g/dL Albumin 3.5 (3.4-5.0) g/dL Globulin 4.0 Albumin/Globulin Ratio 0.9 Urine Color (YELLOW) Urine Appearance (CLEAR) Urine pH (5.0-9.0) Ur Specific [place] (1.005-1.030) Urine Protein (NEGATIVE) Urine Glucose (UA) (NEGATIVE) Urine Ketones (NEGATIVE) Urine Occult Blood (NEGATIVE) Urine Nitrite (NEGATIVE) Urine Bilirubin (NEGATIVE) Urine Urobilinogen (0.2-1.0) mg/dL Ur Leukocyte Esterase (NEGATIVE) Urine Opiates Screen (NEGATIVE) Ur Oxycodone Screen (NEGATIVE) Urine Methadone Screen (NEGATIVE) Ur Barbiturates Screen (NEGATIVE) U Tricyclic Antidepress (NEGATIVE) Ur Phencyclidine Scrn (NEGATIVE) Ur Amphetamine Screen (NEGATIVE) U Methamphetamines Scrn (NEGATIVE) Urine MDMA Screen (NEGATIVE) U Benzodiazepines Scrn (NEGATIVE) Urine Cocaine Screen (NEGATIVE) U Marijuana (THC) Screen (NEGATIVE) Ethyl Alcohol < 3 (0) mg/dL SARS-CoV-2 RNA (MAMIE) (NEGATIVE) 01/26/21 Range/Units 22:49 WBC (5.0-10.0) 10^3/uL RBC (4.2-5.4) 10^6/uL Hgb (12.0-16.0) g/dL Hct (37.0-47.0) % MCV (80-100) fL MCH (27.0-34.0) pg MCHC (33.0-35.0) g/dL Plt Count (150-450) 10^3/uL Neut % (Auto) (42.2-75.2) % Lymph % (Auto) (20.5-50.1) % [place] % (Auto) (2-8) % Eos % (Auto) (1.0-3.0) % Baso % (Auto) (0.0-1.0) % PT (9.0-12.0) SEC INR (0.9-1.2) Sodium (136-145) mmol/L Potassium (3.5-5.1) mmol/L Chloride (98-107) mmol/L Carbon Dioxide (21-32) mmol/L Anion Gap (7-13) mEq/L BUN (7-18) mg/dL Creatinine (0.55-1.02) mg/dL Est Cr Clr Drug Dosing Estimated GFR (MDRD) BUN/Creatinine Ratio (No establ ref range) Glucose (70-99) mg/dL Lactic Acid (0.4-2.0) mmol/L Calcium (8.5-10.1) mg/dL Magnesium (1.8-2.4) mg/dL Total Bilirubin (0.2-1.0) mg/dL AST (15-37) U/L ALT (14-59) U/L Alkaline Phosphatase (46-116) U/L Total Protein (6.4-8.2) g/dL Albumin (3.4-5.0) g/dL Globulin Albumin/Globulin Ratio Urine Color (YELLOW) Urine Appearance (CLEAR) Urine pH (5.0-9.0) Ur Specific [place] (1.005-1.030) Urine Protein (NEGATIVE) Urine Glucose (UA) (NEGATIVE) Urine Ketones (NEGATIVE) Urine Occult Blood (NEGATIVE) Urine Nitrite (NEGATIVE) Urine Bilirubin (NEGATIVE) Urine Urobilinogen (0.2-1.0) mg/dL Ur Leukocyte Esterase (NEGATIVE) Urine Opiates Screen (NEGATIVE) Ur Oxycodone Screen (NEGATIVE) Urine Methadone Screen (NEGATIVE) Ur Barbiturates Screen (NEGATIVE) U Tricyclic Antidepress (NEGATIVE) Ur Phencyclidine Scrn (NEGATIVE) Ur Amphetamine Screen (NEGATIVE) U Methamphetamines Scrn (NEGATIVE) Urine MDMA Screen (NEGATIVE) U Benzodiazepines Scrn (NEGATIVE) Urine Cocaine Screen (NEGATIVE) U Marijuana (THC) Screen (NEGATIVE) Ethyl Alcohol (0) mg/dL SARS-CoV-2 RNA (MAMIE) Negative (NEGATIVE) Medications Discontinued Medications Generic Name Dose Route Start Last Admin Trade Name Freq PRN Reason Stop Dose Admin Charcoal 50 gm 01/26/21 21:01 01/26/21 21:39 Activated Charcoal/Water Susp 50 Gm/240 Ml Tube PO 01/26/21 21:02 50 gm ONETIME ONE Administration Sodium Chloride 1,000 mls @ 999 mls/hr 01/26/21 21:04 01/26/21 21:39 Normal Saline IV 01/26/21 22:04 999 mls/hr .BOLUS ONE Administration Re-Assessment/Re-Exam: No bed available at [facility], Dr William Jensen accepting. Tx via [facility]. VS stable. awake alert, cooperative. No vomiting. Departure - Departure Time of Disposition: 23:25 Disposition: DC/Tfer to Acute Hospital 02 Condition: Fair Clinical Impression: Borderline personality disorder in adult, Suicidal ideation Overdose Qualifiers: Encounter type: initial encounter Injury intent: undetermined intent Qualified Code(s): T50.904A - Poisoning by unspecified drugs, medicaments and biological substances, undetermined, initial encounter - Discharge Information Referrals: PCP,None [Primary Care Provider] - Forms: ED Department Discharge Sepsis Event Note (ED) - Evaluation Sepsis Screening Result: No Definite Risk
== END 2021-01-26 23:23 ==
LOC: DL.ED 20:32
DX: T38.3X2A Poisoning by insulin and oral hypoglycemic [antidiabetic] drugs, intentional self-harm, initial encounter (principal); F60.3 Borderline personality disorder; E78.00 Pure hypercholesterolemia, unspecified; J44.9 Chronic obstructive pulmonary disease, unspecified; E11.9 Type 2 diabetes mellitus without complications; E03.9 Hypothyroidism, unspecified; E66.9 Obesity, unspecified; Z68.30 Body mass index [BMI] 30.0-30.9, adult; Z79.4 Long term (current) use of insulin; Z79.899 Other long term (current) drug therapy; Z72.0 Tobacco use; Z20.822 Contact with and (suspected) exposure to COVID-19
CPT/HCPCS: 36415; 80053; 80305-QW; 80307; 81003; 83605; 83735; 85025; 85610; 93005; 99285; J7030; U0002

== ENCOUNTER 2021-04-14 11:38 | Emergency (ER) | payer MEDICARE, MEDICAID ==
[2021-04-14] MEDS ORDERED: Sodium Chloride 0.9% 10 ML Syringe FLUSH PRN (11:55)
[2021-04-14 11:56] VITALS: BP 143/85; PULSE 117
[2021-04-14 12:27] LABS: AMPHETAMINES,URINE NEGATIVE (NEGATIVE); BARBITURATES,URINE NEGATIVE (NEGATIVE); BENZODIAZEPINE,URINE POSITIVE (NEGATIVE); MDMA (ECSTASY), URINE NEGATIVE (NEGATIVE); METHADONE,URINE NEGATIVE (NEGATIVE); METHAMPHETAMINES,URINE NEGATIVE (NEGATIVE); OPIATES,URINE NEGATIVE (NEGATIVE); OXYCODONE,URINE NEGATIVE (NEGATIVE); PHENCYCLIDINE,URINE NEGATIVE (NEGATIVE); TCA,URINE NEGATIVE (NEGATIVE)
[2021-04-14 13:13] LABS: ANION GAP 12.9 mEq/L (7-13); SODIUM,NA 137 mmol/L (138-146)
[2021-04-14 13:14] LABS: CHLORIDE,CL 98 mmol/L (98-107)
[2021-04-14] MEDS ORDERED: Sodium Chloride 0.9% 1,000 ML IV ONE (13:16)
[2021-04-14] MEDS ORDERED: Lactulose Soln 10 GM/15 ML 30 ML UD Cup PO ONE (13:52)
== END 2021-04-14 14:20 | disposition home or self-care (01) ==
LOC: DL.ED 11:38
DX: R10.12 Left upper quadrant pain (principal); E78.00 Pure hypercholesterolemia, unspecified; J44.9 Chronic obstructive pulmonary disease, unspecified; E11.9 Type 2 diabetes mellitus without complications; E03.9 Hypothyroidism, unspecified; E66.9 Obesity, unspecified; Z68.30 Body mass index [BMI] 30.0-30.9, adult; Z79.4 Long term (current) use of insulin; Z79.899 Other long term (current) drug therapy; Z72.0 Tobacco use
CPT/HCPCS: 36415; 74018; 80053; 80305-QW; 80307; 81003; 83605; 83690; 83735; 85025; 86140; 99284-25; A9270-GY; J7030

== ENCOUNTER 2021-05-01 12:03 | Emergency (ER) | payer MEDICARE, MEDICAID ==
[2021-05-01 12:23] VITALS: BP 148/72; PULSE 88
[2021-05-01 13:11] LABS: AMPHETAMINES,URINE NEGATIVE (NEGATIVE); BARBITURATES,URINE NEGATIVE (NEGATIVE); BENZODIAZEPINE,URINE POSITIVE (NEGATIVE); MDMA (ECSTASY), URINE NEGATIVE (NEGATIVE); METHADONE,URINE NEGATIVE (NEGATIVE); METHAMPHETAMINES,URINE NEGATIVE (NEGATIVE); OPIATES,URINE NEGATIVE (NEGATIVE); OXYCODONE,URINE NEGATIVE (NEGATIVE); PHENCYCLIDINE,URINE NEGATIVE (NEGATIVE); TCA,URINE NEGATIVE (NEGATIVE)
[2021-05-01 13:19] LABS: ANION GAP 11.5 mEq/L (7-13); CHLORIDE,CL 101 mmol/L (98-107); SODIUM,NA 137 mmol/L (136-145)
[2021-05-01 13:20] LABS: ACETAMINOPHEN 0 ug/mL (10-30 (Therapeutic))
== END 2021-05-01 14:37 ==
LOC: DL.ED 12:03
DX: F31.5 Bipolar disorder, current episode depressed, severe, with psychotic features (principal); R07.9 Chest pain, unspecified; R10.9 Unspecified abdominal pain; F60.3 Borderline personality disorder; E78.00 Pure hypercholesterolemia, unspecified; J44.9 Chronic obstructive pulmonary disease, unspecified; E11.9 Type 2 diabetes mellitus without complications; E03.9 Hypothyroidism, unspecified; E66.9 Obesity, unspecified; Z79.4 Long term (current) use of insulin; Z79.899 Other long term (current) drug therapy; Z20.822 Contact with and (suspected) exposure to COVID-19; Z68.36 Body mass index [BMI] 36.0-36.9, adult
CPT/HCPCS: 36415; 80053; 80143; 80179; 80305; 80307; 81001; 84484; 85025; 87086; 87088; 87186; 93005; 99285; U0002

== ENCOUNTER 2021-06-02 19:25 | Emergency (ER) | payer MEDICARE, MEDICAID ==
[2021-06-02 19:47] VITALS: BP 133/53; PULSE 87
== END 2021-06-02 20:15 ==
LOC: DL.ED 19:25
DX: R45.851 Suicidal ideations (principal); K14.0 Glossitis; E78.00 Pure hypercholesterolemia, unspecified; J44.9 Chronic obstructive pulmonary disease, unspecified; E11.9 Type 2 diabetes mellitus without complications; E03.9 Hypothyroidism, unspecified; E66.9 Obesity, unspecified; Z79.4 Long term (current) use of insulin; Z79.899 Other long term (current) drug therapy; Z72.0 Tobacco use; Z68.34 Body mass index [BMI] 34.0-34.9, adult
CPT/HCPCS: 99285

== ENCOUNTER 2021-06-26 01:53 | Emergency (ER) | payer MEDICARE, MEDICAID ==
[2021-06-26 02:59] LABS: ANION GAP 11.7 mEq/L (7-13)
[2021-06-26 03:18] LABS: CORONAVIRUS COVID-19 NAA NEGATIVE (NEGATIVE)
[2021-06-26 03:45] LABS: AMPHETAMINES,URINE NEGATIVE (NEGATIVE); BARBITURATES,URINE NEGATIVE (NEGATIVE); BENZODIAZEPINE,URINE NEGATIVE (NEGATIVE); MDMA (ECSTASY), URINE NEGATIVE (NEGATIVE); METHADONE,URINE NEGATIVE (NEGATIVE); METHAMPHETAMINES,URINE NEGATIVE (NEGATIVE); OPIATES,URINE NEGATIVE (NEGATIVE); OXYCODONE,URINE NEGATIVE (NEGATIVE); PHENCYCLIDINE,URINE NEGATIVE (NEGATIVE); TCA,URINE NEGATIVE (NEGATIVE)
[2021-06-26] MEDS ORDERED: Acetaminophen 325 MG Tab PO ONE (04:10)
[2021-06-26] MEDS ORDERED: methylPREDNISolone Sodium Succinate 125 MG/2 ML SDV IVPUSH ONE (04:11)
[2021-06-26] MEDS ORDERED: methylPREDNISolone Sodium Succinate 40 MG/1 ML SDV IVPUSH ONE (04:25)
[2021-06-26 05:40] VITALS: BP 133/69; PULSE 64
== END 2021-06-26 05:47 | disposition home or self-care (01) ==
LOC: DL.ED 01:53
DX: J02.9 Acute pharyngitis, unspecified (principal); E78.00 Pure hypercholesterolemia, unspecified; J44.9 Chronic obstructive pulmonary disease, unspecified; E11.9 Type 2 diabetes mellitus without complications; E03.9 Hypothyroidism, unspecified; E66.9 Obesity, unspecified; Z68.36 Body mass index [BMI] 36.0-36.9, adult; Z72.0 Tobacco use; Z79.4 Long term (current) use of insulin; Z79.899 Other long term (current) drug therapy; Z20.822 Contact with and (suspected) exposure to COVID-19
CPT/HCPCS: 0240U; 36415; 70360; 71046; 80053; 80305; 81001; 83605; 83880; 84484; 85025; 85379; 85651; 87081; 87430; 93005; 96374; 99284; A9270; J2930

== ENCOUNTER 2021-06-26 13:23 | Emergency (ER) | payer MEDICARE, MEDICAID ==
[2021-06-26] MEDS ORDERED: Sodium Chloride 0.9% 1,000 ML IV ONE (14:20)
[2021-06-26 14:55] LABS: ANION GAP 14.4 mEq/L (7-13); CHLORIDE,CL 100 mmol/L (98-107); SODIUM,NA 138 mmol/L (136-145)
[2021-06-26 16:25] VITALS: BP 92/59; PULSE 82
== END 2021-06-26 16:26 | disposition home or self-care (01) ==
LOC: DL.ED 13:23
DX: R73.9 Hyperglycemia, unspecified (principal); J44.9 Chronic obstructive pulmonary disease, unspecified; E78.00 Pure hypercholesterolemia, unspecified; E03.9 Hypothyroidism, unspecified; E66.9 Obesity, unspecified; Z68.35 Body mass index [BMI] 35.0-35.9, adult; Z72.0 Tobacco use; Z79.4 Long term (current) use of insulin; Z79.899 Other long term (current) drug therapy
CPT/HCPCS: 36415; 80053; 82009; 82947; 85025; 99284; J7030

== ENCOUNTER 2021-06-30 21:34 | Emergency (ER) | payer MEDICARE, MEDICAID ==
[2021-06-30 22:12] VITALS: BP 138/125; PULSE 79
== END 2021-06-30 22:35 | disposition left against medical advice (07) ==
LOC: DL.ED 21:34
DX: Z53.21 Procedure and treatment not carried out due to patient leaving prior to being seen by health care provider (principal)

== ENCOUNTER 2021-07-04 16:18 | Emergency (ER) | payer MEDICARE, MEDICAID ==
[2021-07-04 16:28] VITALS: PULSE 80
[2021-07-04 17:34] LABS: ANION GAP 12.8 mEq/L (7-13); CHLORIDE,CL 97 mmol/L (98-107); SODIUM,NA 133 mmol/L (136-145)
[2021-07-04 17:37] LABS: ACETAMINOPHEN 0 ug/mL (10-30 (Therapeutic))
[2021-07-04 17:39] LABS: AMPHETAMINES,URINE NEGATIVE (NEGATIVE); BARBITURATES,URINE NEGATIVE (NEGATIVE); BENZODIAZEPINE,URINE NEGATIVE (NEGATIVE); MDMA (ECSTASY), URINE NEGATIVE (NEGATIVE); METHADONE,URINE NEGATIVE (NEGATIVE); METHAMPHETAMINES,URINE NEGATIVE (NEGATIVE); OPIATES,URINE NEGATIVE (NEGATIVE); OXYCODONE,URINE NEGATIVE (NEGATIVE); PHENCYCLIDINE,URINE NEGATIVE (NEGATIVE); TCA,URINE NEGATIVE (NEGATIVE)
[2021-07-04 17:53] LABS: CORONAVIRUS COVID-19 NAA NEGATIVE (NEGATIVE)
[2021-07-04 19:21] VITALS: BP 127/57
== END 2021-07-04 18:55 ==
LOC: DL.ED 16:18
DX: T38.892A Poisoning by other hormones and synthetic substitutes, intentional self-harm, initial encounter (principal); F60.3 Borderline personality disorder; E11.9 Type 2 diabetes mellitus without complications; E03.9 Hypothyroidism, unspecified; J44.9 Chronic obstructive pulmonary disease, unspecified; E78.00 Pure hypercholesterolemia, unspecified; E66.9 Obesity, unspecified; Z68.36 Body mass index [BMI] 36.0-36.9, adult; Z79.4 Long term (current) use of insulin; Z79.899 Other long term (current) drug therapy; Z20.822 Contact with and (suspected) exposure to COVID-19
CPT/HCPCS: 0240U; 36415; 80053; 80143; 80179; 80305; 80307; 81003; 82140; 82150; 83605; 83690; 83735; 84484; 85025; 87040; 93005; 93010; 99284; 99285

== ENCOUNTER 2021-07-08 02:44 | Observation (INO) | payer MEDICARE, MEDICAID ==
[2021-07-08 03:41] LABS: ANION GAP 11.2 mEq/L (7-13)
[2021-07-08 04:17] LABS: AMPHETAMINES,URINE NEGATIVE (NEGATIVE); BARBITURATES,URINE NEGATIVE (NEGATIVE); BENZODIAZEPINE,URINE NEGATIVE (NEGATIVE); MDMA (ECSTASY), URINE NEGATIVE (NEGATIVE); METHADONE,URINE NEGATIVE (NEGATIVE); METHAMPHETAMINES,URINE NEGATIVE (NEGATIVE); OPIATES,URINE NEGATIVE (NEGATIVE); OXYCODONE,URINE NEGATIVE (NEGATIVE); PHENCYCLIDINE,URINE NEGATIVE (NEGATIVE); TCA,URINE NEGATIVE (NEGATIVE)
[2021-07-08] MEDS ORDERED: Docusate Sodium 100 MG Cap PO PRN (08:08)
[2021-07-08] MEDS ORDERED: Magnesium Hydroxide 400 MG/5 ML Susp 30 ML Cup PO PRN (08:08)
[2021-07-08] MEDS ORDERED: Bisacodyl 5 MG Tab PO PRN (08:08)
[2021-07-08] MEDS ORDERED: Acetaminophen 325 MG Tab PO PRN ×2 (08:08→11:03)
[2021-07-08] MEDS ORDERED: Albuterol/Ipratropium 3.0-0.5 MG/3 ML Neb Soln NEB PRN (08:08)
[2021-07-08] MEDS ORDERED: Ondansetron 4 MG/2 ML SDV IVPUSH PRN (08:08)
[2021-07-08] MEDS ORDERED: Polyethylene Glycol 3350 Powder 17 GM Packet PO PRN (08:08)
[2021-07-08] MEDS ORDERED: Ketorolac 30 MG/ML SDV IVPUSH PRN (08:08)
[2021-07-08] MEDS: Sodium Chloride 0.9% 1,000 ML IV SCH ×2 (10:17→19:50)
[2021-07-08] MEDS: LORazepam 2 MG/ML SDV IVPUSH PRN ×2 (10:38→18:40)
[2021-07-08] MEDS ORDERED: hydrOXYzine HCl 25 MG Tab PO PRN (11:03)
[2021-07-08] MEDS ORDERED: Nicotine 21 MG/24 Hr Patch TRDERM ONE (11:06)
[2021-07-08] MEDS ORDERED: Non-Formulary Medication 1 Each (Omega-3/Dha/Epa/Fish Oil [Omega-3 Fish Oil 1,000 Mg Sfgl] PO SCH (12:00)
[2021-07-08] MEDS: Nicotine 21 MG/24 Hr Patch TRDERM SCH (12:15)
[2021-07-08] MEDS: Insulin Lispro 100 Units/ML 3 ML Vial SUBCUT SCH ×2 (12:16→18:43)
[2021-07-08 12:18] LABS: ANION GAP 8.7 mEq/L (7-13); CHLORIDE,CL 104 mmol/L (98-107); SODIUM,NA 137 mmol/L (136-145)
[2021-07-08] MEDS: Omeprazole 20 MG Cap.CR PO SCH (15:09)
[2021-07-08 17:10] LABS: ANION GAP 7.5 mEq/L (7-13)
[2021-07-08] MEDS ORDERED: Non-Formulary Medication 1 Each (Diclofenac Sodium [Diclofenac Sodium] 75 MG Tablet.Dr) PO SCH (18:00)
[2021-07-08] MEDS ORDERED: Magnesium Sulfate/Water 4 GM in Premix Bag 1 BAG IV ONE (20:13)
[2021-07-08] MEDS ORDERED: atorvaSTATin 20 MG Tab PO SCH (21:00)
[2021-07-08] MEDS ORDERED: Insulin Glarg,Human.Rec.Analog 100 Unit/ML SUBCUT SCH (21:00)
[2021-07-08] MEDS ORDERED: Melatonin 3 MG Tab PO SCH (21:00)
[2021-07-08] MEDS: Docusate Sodium 100 MG Cap PO SCH (21:46)
[2021-07-08 22:37] LABS: ANION GAP 10.5 mEq/L (7-13); CHLORIDE,CL 104 mmol/L (98-107); SODIUM,NA 139 mmol/L (136-145)
[2021-07-09] MEDS ORDERED: Levothyroxine 88 MCG Tab PO SCH (06:00)
[2021-07-09] MEDS: Omeprazole 20 MG Cap.CR PO SCH (06:04)
[2021-07-09] MEDS: Sodium Chloride 0.9% 1,000 ML IV SCH (06:51)
[2021-07-09 08:16] LABS: ANION GAP 13.5 mEq/L (7-13); CHLORIDE,CL 104 mmol/L (98-107); SODIUM,NA 139 mmol/L (136-145)
[2021-07-09] MEDS ORDERED: Lisinopril 5 MG Tab PO SCH (09:00)
[2021-07-09] MEDS ORDERED: Escitalopram 10 MG Tab PO SCH (09:00)
[2021-07-09] MEDS ORDERED: Fenofibrate Nanocrystallized 145 MG Tab PO SCH (09:00)
[2021-07-09] MEDS: Docusate Sodium 100 MG Cap PO SCH (10:03)
[2021-07-09] MEDS: Insulin Lispro 100 Units/ML 3 ML Vial SUBCUT SCH ×2 (10:04→12:16)
[2021-07-09] MEDS: Nicotine 21 MG/24 Hr Patch TRDERM SCH (10:07)
[2021-07-09] MEDS ORDERED: Magnesium Sulfate/Water 2 GM in Premix Bag 1 BAG IV ONE (12:00)
[2021-07-09 12:59] VITALS: BP 128/60; PULSE 73
== END 2021-07-09 13:25 | disposition home or self-care (01) ==
LOC: DL.ED 02:44 → DL.MS 06:45
PROVIDERS: ADMIT Internal Medicine; ATTEND Internal Medicine
DX: T45.2X2A Poisoning by vitamins, intentional self-harm, initial encounter (principal); J44.9 Chronic obstructive pulmonary disease, unspecified; E03.9 Hypothyroidism, unspecified; I10 Essential (primary) hypertension; E11.9 Type 2 diabetes mellitus without complications; G89.29 Other chronic pain; E78.00 Pure hypercholesterolemia, unspecified; E66.9 Obesity, unspecified; F17.210 Nicotine dependence, cigarettes, uncomplicated; F32.9 Major depressive disorder, single episode, unspecified; R73.9 Hyperglycemia, unspecified; E87.1 Hypo-osmolality and hyponatremia; Z79.4 Long term (current) use of insulin; Z79.890 Hormone replacement therapy; Z79.899 Other long term (current) drug therapy
CPT/HCPCS: 36415; 80048; 80053; 80143; 80179; 80305-QW; 81003; 82947; 83540; 83735; 84703; 85025; 93005; 96365; 96366; 96375; 96376; 99283; 99285-25; A9270-GY; G0378; J1815-GY; J2060; J3475; J7030

== ENCOUNTER 2021-07-15 18:00 | Emergency (ER) | payer MEDICARE, MEDICAID ==
[2021-07-15 18:17] VITALS: BP 127/66; PULSE 89
[2021-07-15 19:11] LABS: AMPHETAMINES,URINE NEGATIVE (NEGATIVE); BARBITURATES,URINE NEGATIVE (NEGATIVE); BENZODIAZEPINE,URINE NEGATIVE (NEGATIVE); MDMA (ECSTASY), URINE NEGATIVE (NEGATIVE); METHADONE,URINE NEGATIVE (NEGATIVE); METHAMPHETAMINES,URINE NEGATIVE (NEGATIVE); OPIATES,URINE NEGATIVE (NEGATIVE); OXYCODONE,URINE NEGATIVE (NEGATIVE); PHENCYCLIDINE,URINE NEGATIVE (NEGATIVE); TCA,URINE NEGATIVE (NEGATIVE)
[2021-07-15 19:16] LABS: ACETAMINOPHEN 0 ug/mL (10-30 (Therapeutic)); ANION GAP 12.6 mEq/L (7-13); CHLORIDE,CL 104 mmol/L (98-107); SODIUM,NA 141 mmol/L (136-145)
[2021-07-15] MEDS ORDERED: Magnesium Sulfate/Water 2 GM in Premix Bag 1 BAG IV ONE (20:52)
== END 2021-07-15 22:16 | disposition home or self-care (01) ==
LOC: DL.ED 18:00
DX: R45.851 Suicidal ideations (principal); E78.00 Pure hypercholesterolemia, unspecified; E03.9 Hypothyroidism, unspecified; E11.9 Type 2 diabetes mellitus without complications; F17.210 Nicotine dependence, cigarettes, uncomplicated; E66.9 Obesity, unspecified; Z68.34 Body mass index [BMI] 34.0-34.9, adult; J44.9 Chronic obstructive pulmonary disease, unspecified; Z79.84 Long term (current) use of oral hypoglycemic drugs; Z79.899 Other long term (current) drug therapy; Z79.4 Long term (current) use of insulin
CPT/HCPCS: 36415; 80053; 80143; 80179; 80305-QW; 80307; 81001; 81025; 83735; 84443; 85025; 96365; 99284-25; J3475

== ENCOUNTER 2021-07-23 19:05 | Emergency (ER) | payer MEDICARE, MEDICAID ==
[2021-07-23] MEDS ORDERED: Ondansetron 4 MG Tab.DIS PO ONE (19:06)
[2021-07-23 19:23] VITALS: BP 116/60; PULSE 79
[2021-07-23] MEDS ORDERED: Ondansetron 4 MG/2 ML SDV IVPUSH ONE (19:29)
[2021-07-23] MEDS ORDERED: Metoclopramide 10 MG/2 ML SDV IM ONE (19:30)
== END 2021-07-23 19:59 | disposition home or self-care (01) ==
LOC: DL.ED 19:05
DX: R11.0 Nausea (principal); E78.00 Pure hypercholesterolemia, unspecified; J44.9 Chronic obstructive pulmonary disease, unspecified; E11.9 Type 2 diabetes mellitus without complications; E03.9 Hypothyroidism, unspecified; E66.9 Obesity, unspecified; Z68.30 Body mass index [BMI] 30.0-30.9, adult; Z79.4 Long term (current) use of insulin; Z79.899 Other long term (current) drug therapy
CPT/HCPCS: 96372; 99282; 99284-25; A9270-GY; J2765

== ENCOUNTER 2021-07-31 20:29 | Emergency (ER) | payer MEDICARE, MEDICAID | END 2021-07-31 22:18 | disposition left against medical advice (07) | LOC: DL.ED 20:29 | DX: F22 Delusional disorders (principal); Z53.21 Procedure and treatment not carried out due to patient leaving prior to being seen by health care provider ==

== ENCOUNTER 2021-08-04 05:09 | Emergency (ER) | payer MEDICARE, MEDICAID ==
[2021-08-04] MEDS ORDERED: Benzonatate 100 MG Cap PO ONE (05:23)
[2021-08-04] MEDS ORDERED: guaiFENesin/Dextromethorphan 100-10 MG/5 ML Soln 5 ML Cup PO ONE (05:23)
[2021-08-04] MEDS ORDERED: Oxymetazoline 0.05% Nasal Spray 30 ML Bottle NAS ONE (05:24)
[2021-08-04 05:26] VITALS: BP 111/64; PULSE 94
== END 2021-08-04 05:40 | disposition home or self-care (01) ==
LOC: DL.ED 05:09
DX: J06.9 Acute upper respiratory infection, unspecified (principal); E78.00 Pure hypercholesterolemia, unspecified; J44.9 Chronic obstructive pulmonary disease, unspecified; E03.9 Hypothyroidism, unspecified; E11.9 Type 2 diabetes mellitus without complications; E66.9 Obesity, unspecified; Z68.33 Body mass index [BMI] 33.0-33.9, adult; Z79.899 Other long term (current) drug therapy; Z79.4 Long term (current) use of insulin; Z79.84 Long term (current) use of oral hypoglycemic drugs
CPT/HCPCS: 99283; A9270

== ENCOUNTER 2021-08-07 09:32 | Emergency (ER) | payer MEDICARE, MEDICAID ==
[2021-08-07 09:51] VITALS: BP 115/60; PULSE 89
== END 2021-08-07 10:30 | disposition home or self-care (01) ==
LOC: DL.ED 09:32
DX: E11.9 Type 2 diabetes mellitus without complications (principal); R05.9 Cough, unspecified; E78.00 Pure hypercholesterolemia, unspecified; J44.9 Chronic obstructive pulmonary disease, unspecified; E03.9 Hypothyroidism, unspecified; F17.210 Nicotine dependence, cigarettes, uncomplicated; E66.9 Obesity, unspecified; Z68.34 Body mass index [BMI] 34.0-34.9, adult; Z79.899 Other long term (current) drug therapy; Z79.4 Long term (current) use of insulin; Z79.84 Long term (current) use of oral hypoglycemic drugs
CPT/HCPCS: 82947; 99284

== ENCOUNTER 2021-08-08 12:12 | Observation (INO) | payer MEDICARE, MEDICAID ==
[2021-08-08] MEDS ORDERED: Activated Charcoal/Water Susp 50 GM/240 ML Tube PO ONE (12:18)
[2021-08-08] MEDS ORDERED: Sodium Chloride 0.9% 1,000 ML IV ONE ×2 (12:27→14:07)
[2021-08-08 13:52] LABS: PTT,PARTIAL THROMBOPLSTIN TIME 18.6 SEC (22.0-34.0)
[2021-08-08 13:56] LABS: ACETAMINOPHEN 0 ug/mL (10-30 (Therapeutic)); ANION GAP 17.3 mEq/L (7-13); CHLORIDE,CL 102 mmol/L (98-107); SODIUM,NA 141 mmol/L (136-145)
[2021-08-08] MEDS ORDERED: Magnesium Sulfate/Water 2 GM in Premix Bag 1 BAG IV ONE (14:06)
[2021-08-08] MEDS ORDERED: Bisacodyl 5 MG Tab PO PRN (17:48)
[2021-08-08] MEDS ORDERED: Ondansetron 4 MG/2 ML SDV IVPUSH PRN (17:48)
[2021-08-08] MEDS ORDERED: Acetaminophen 325 MG Tab PO PRN (17:48)
[2021-08-08] MEDS ORDERED: Albuterol 0.083% 2.5 MG/3 ML Neb Soln NEB PRN (17:48)
[2021-08-08] MEDS ORDERED: Docusate Sodium 100 MG Cap PO PRN (17:48)
[2021-08-08] MEDS ORDERED: Glucagon,Human Recombinant 1 MG Vial IM PRN (18:02)
[2021-08-08] MEDS ORDERED: 50% Dextrose in Water 50 ML Syringe IVPUSH PRN (18:02)
[2021-08-08] MEDS: Insulin Lispro 100 Units/ML 3 ML Vial SUBCUT SCH (20:26)
[2021-08-08 21:33] LABS: AMPHETAMINES,URINE NEGATIVE (NEGATIVE); BARBITURATES,URINE NEGATIVE (NEGATIVE); BENZODIAZEPINE,URINE NEGATIVE (NEGATIVE); MDMA (ECSTASY), URINE NEGATIVE (NEGATIVE); METHADONE,URINE NEGATIVE (NEGATIVE); METHAMPHETAMINES,URINE NEGATIVE (NEGATIVE); OPIATES,URINE NEGATIVE (NEGATIVE); OXYCODONE,URINE NEGATIVE (NEGATIVE); PHENCYCLIDINE,URINE NEGATIVE (NEGATIVE); TCA,URINE NEGATIVE (NEGATIVE)
[2021-08-08] MEDS: Nicotine 21 MG/24 Hr Patch TRDERM SCH (21:44)
[2021-08-08] MEDS ORDERED: Melatonin 3 MG Tab PO ONE (22:17)
[2021-08-08] MEDS ORDERED: Codeine/guaiFENesin 10-100 MG/5 ML Syrup 5 ML Cup PO SCH (22:30)
[2021-08-08] MEDS: Codeine/guaiFENesin 10-100 MG/5 ML Syrup 5 ML Cup PO PRN (22:34)
[2021-08-09 06:44] LABS: ANION GAP 12.1 mEq/L (7-13); CHLORIDE,CL 107 mmol/L (98-107); SODIUM,NA 143 mmol/L (136-145)
[2021-08-09] MEDS: Codeine/guaiFENesin 10-100 MG/5 ML Syrup 5 ML Cup PO PRN (07:32)
[2021-08-09] MEDS: Nicotine 21 MG/24 Hr Patch TRDERM SCH (08:02)
[2021-08-09] MEDS: Insulin Lispro 100 Units/ML 3 ML Vial SUBCUT SCH ×2 (08:03→12:08)
[2021-08-09] MEDS ORDERED: Enoxaparin 40 MG/0.4 ML Syringe SUBCUT SCH (09:00)
[2021-08-09] MEDS ORDERED: hydrOXYzine HCl 25 MG Tab PO PRN (09:10)
[2021-08-09] MEDS ORDERED: Non-Formulary Medication 1 Each (Diclofenac Sodium [Diclofenac Sodium] 75 MG Tablet.Dr) PO PRN (09:10)
[2021-08-09] MEDS ORDERED: Multivitamins with Iron/Calcium/Folic Acid/Minerals Tab PO PRN (09:10)
[2021-08-09] MEDS ORDERED: Non-Formulary Medication 1 Each (Omega-3/Dha/Epa/Fish Oil [Omega-3 Fish Oil 1,000 Mg Sfgl] PO PRN (09:10)
[2021-08-09] MEDS ORDERED: metFORMIN 500 MG Tab PO PRN (09:10)
[2021-08-09] MEDS ORDERED: Omeprazole 20 MG Cap.CR PO PRN (09:10)
[2021-08-09] MEDS ORDERED: Docusate Sodium 100 MG Cap PO PRN (09:10)
[2021-08-09] MEDS ORDERED: Acetaminophen 325 MG Tab PO PRN (09:10)
[2021-08-09] MEDS ORDERED: MELATONIN 2.5 MG PO PRN (09:10)
[2021-08-09] MEDS ORDERED: Escitalopram 10 MG Tab PO SCH (09:15)
[2021-08-09] MEDS ORDERED: Insulin Lispro 100 Units/ML 3 ML Vial SUBCUT SCH ×2 (12:00→18:00)
[2021-08-09 12:17] VITALS: BP 128/74; PULSE 68
[2021-08-09] MEDS ORDERED: Codeine/guaiFENesin 10-100 MG/5 ML Syrup 5 ML Cup ONE (12:26)
[2021-08-09] MEDS ORDERED: Codeine/guaiFENesin 10-100 MG/5 ML Syrup 5 ML Cup PO ONE (12:29)
[2021-08-09] MEDS ORDERED: Insulin Glarg,Human.Rec.Analog 100 Unit/ML SUBCUT SCH (21:00)
[2021-08-09] MEDS ORDERED: atorvaSTATin 20 MG Tab PO SCH (21:00)
[2021-08-10] MEDS ORDERED: Levothyroxine 88 MCG Tab PO SCH (06:00)
[2021-08-10] MEDS ORDERED: Lisinopril 5 MG Tab PO SCH (09:00)
== END 2021-08-09 12:30 | disposition home or self-care (01) ==
LOC: DL.ED 12:12 → DL.MS 17:35
PROVIDERS: ADMIT Internal Medicine; ATTEND Internal Medicine
DX: T45.4X2A Poisoning by iron and its compounds, intentional self-harm, initial encounter (principal); E78.00 Pure hypercholesterolemia, unspecified; J44.9 Chronic obstructive pulmonary disease, unspecified; E11.9 Type 2 diabetes mellitus without complications; E03.9 Hypothyroidism, unspecified; E66.9 Obesity, unspecified; F17.210 Nicotine dependence, cigarettes, uncomplicated; Z98.890 Other specified postprocedural states; Z79.899 Other long term (current) drug therapy; Z20.822 Contact with and (suspected) exposure to COVID-19
CPT/HCPCS: 36415; 74018; 80053; 80143; 80179; 80305; 80307; 81003; 81025; 82140; 82150; 82728; 82947; 83540; 83550; 83605; 83690; 83735; 84484; 85025; 85610; 85730; A9270; J1815; J3475; J7030; U0002

== ENCOUNTER 2021-08-15 07:22 | Emergency (ER) | payer MEDICARE, MEDICAID ==
[2021-08-15 07:34] VITALS: BP 120/58; PULSE 80
== END 2021-08-15 08:42 | disposition other institution (70) ==
LOC: DL.ED 07:22
DX: F60.3 Borderline personality disorder (principal); E78.00 Pure hypercholesterolemia, unspecified; J44.9 Chronic obstructive pulmonary disease, unspecified; E03.9 Hypothyroidism, unspecified; E11.9 Type 2 diabetes mellitus without complications; E66.9 Obesity, unspecified; Z68.36 Body mass index [BMI] 36.0-36.9, adult; Z79.899 Other long term (current) drug therapy; Z79.4 Long term (current) use of insulin; Z79.84 Long term (current) use of oral hypoglycemic drugs
CPT/HCPCS: 99283; 99285

== ENCOUNTER 2021-09-02 15:17 | Emergency (ER) | payer MEDICARE, MEDICAID | END 2021-09-02 16:15 | disposition left against medical advice (07) | LOC: DL.ED 15:17 | DX: Z53.21 Procedure and treatment not carried out due to patient leaving prior to being seen by health care provider (principal) ==

== ENCOUNTER 2021-09-02 17:20 | Emergency (ER) | payer MEDICARE, MEDICAID ==
[2021-09-02] MEDS ORDERED: Sodium Chloride 0.9% 10 ML Syringe FLUSH PRN (18:29)
[2021-09-02] MEDS ORDERED: Sodium Chloride 0.9% 1,000 ML IV ONE ×2 (18:31→22:15)
[2021-09-02 19:21] LABS: CHLORIDE,CL 100 mmol/L (98-107); SODIUM,NA 138 mmol/L (136-145)
[2021-09-02 19:33] LABS: ESTIMATED GFR 61 mL/min (>=60)
[2021-09-02 19:47] LABS: AMPHETAMINES,URINE NEGATIVE (NEGATIVE); BARBITURATES,URINE NEGATIVE (NEGATIVE); BENZODIAZEPINE,URINE NEGATIVE (NEGATIVE); MDMA (ECSTASY), URINE NEGATIVE (NEGATIVE); METHADONE,URINE NEGATIVE (NEGATIVE); METHAMPHETAMINES,URINE NEGATIVE (NEGATIVE); OPIATES,URINE NEGATIVE (NEGATIVE); OXYCODONE,URINE NEGATIVE (NEGATIVE); PHENCYCLIDINE,URINE NEGATIVE (NEGATIVE); TCA,URINE NEGATIVE (NEGATIVE)
[2021-09-02 23:43] VITALS: BP 159/74; PULSE 70
== END 2021-09-03 00:02 | disposition home or self-care (01) ==
LOC: DL.ED 17:20
DX: T43.592A Poisoning by other antipsychotics and neuroleptics, intentional self-harm, initial encounter (principal); T39.392A Poisoning by other nonsteroidal anti-inflammatory drugs [NSAID], intentional self-harm, initial encounter; F33.3 Major depressive disorder, recurrent, severe with psychotic symptoms; J44.9 Chronic obstructive pulmonary disease, unspecified; E11.9 Type 2 diabetes mellitus without complications; E03.9 Hypothyroidism, unspecified; F17.210 Nicotine dependence, cigarettes, uncomplicated; E66.9 Obesity, unspecified; Z79.4 Long term (current) use of insulin; Z79.899 Other long term (current) drug therapy; Z68.34 Body mass index [BMI] 34.0-34.9, adult
CPT/HCPCS: 36415; 80053; 80143; 80179; 80305; 80307; 82728; 83540; 83605; 83735; 85025; 86140; 93005; 96360; 96361; 99283; 99285; J3490; J7030

== ENCOUNTER 2021-09-03 15:23 | Emergency (ER) | payer MEDICARE, MEDICAID ==
[2021-09-03] MEDS ORDERED: Ondansetron 4 MG Tab.DIS PO ONE (15:36)
[2021-09-03 15:38] VITALS: BP 125/58; PULSE 93
[2021-09-03 16:07] LABS: ANION GAP 8.8 mEq/L (7-13)
== END 2021-09-03 16:31 | disposition home or self-care (01) ==
LOC: DL.ED 15:23
DX: R10.30 Lower abdominal pain, unspecified (principal); E86.0 Dehydration; J44.9 Chronic obstructive pulmonary disease, unspecified; E11.9 Type 2 diabetes mellitus without complications; E03.9 Hypothyroidism, unspecified; E66.9 Obesity, unspecified; Z68.34 Body mass index [BMI] 34.0-34.9, adult; Z79.899 Other long term (current) drug therapy
CPT/HCPCS: 36415; 80053; 83605; 85025; 99284; A9270

== ENCOUNTER 2021-09-04 22:36 | Emergency (ER) | payer MEDICARE, MEDICAID | END 2021-09-04 23:41 | disposition left against medical advice (07) | LOC: DL.ED 22:36 | DX: Z53.21 Procedure and treatment not carried out due to patient leaving prior to being seen by health care provider (principal) ==

== ENCOUNTER 2021-09-05 16:38 | Emergency (ER) | payer MEDICARE, MEDICAID ==
[2021-09-05 17:09] VITALS: BP 147/65; PULSE 81
[2021-09-05] MEDS: Sodium Chloride 0.9% 10 ML Syringe FLUSH PRN (17:33)
[2021-09-05] MEDS: Sodium Chloride 0.9% 1,000 ML IV ONE (17:33)
[2021-09-05 17:40] LABS: AMPHETAMINES,URINE NEGATIVE (NEGATIVE); BARBITURATES,URINE NEGATIVE (NEGATIVE); BENZODIAZEPINE,URINE NEGATIVE (NEGATIVE); MDMA (ECSTASY), URINE NEGATIVE (NEGATIVE); METHADONE,URINE NEGATIVE (NEGATIVE); METHAMPHETAMINES,URINE NEGATIVE (NEGATIVE); OPIATES,URINE NEGATIVE (NEGATIVE); OXYCODONE,URINE NEGATIVE (NEGATIVE); PHENCYCLIDINE,URINE NEGATIVE (NEGATIVE); TCA,URINE NEGATIVE (NEGATIVE)
[2021-09-05 17:54] LABS: ANION GAP 9.7 mEq/L (7-13); CHLORIDE,CL 103 mmol/L (98-107); SODIUM,NA 139 mmol/L (136-145)
[2021-09-05 17:57] LABS: ESTIMATED GFR 67 mL/min (>=60)
== END 2021-09-05 18:00 | disposition left against medical advice (07) ==
LOC: DL.ED 16:38
DX: R53.1 Weakness (principal); E78.00 Pure hypercholesterolemia, unspecified; J44.9 Chronic obstructive pulmonary disease, unspecified; E11.9 Type 2 diabetes mellitus without complications; E03.9 Hypothyroidism, unspecified; Z79.899 Other long term (current) drug therapy; Z79.4 Long term (current) use of insulin
CPT/HCPCS: 36415; 80053; 80305; 80307; 81003; 85025; 99284; J3490; J7030; 99282

== ENCOUNTER 2021-09-26 02:13 | Emergency (ER) | payer MEDICARE, MEDICAID ==
[2021-09-26 02:40] LABS: AMPHETAMINES,URINE NEGATIVE (NEGATIVE); BARBITURATES,URINE NEGATIVE (NEGATIVE); BENZODIAZEPINE,URINE NEGATIVE (NEGATIVE); MDMA (ECSTASY), URINE NEGATIVE (NEGATIVE); METHADONE,URINE NEGATIVE (NEGATIVE); METHAMPHETAMINES,URINE NEGATIVE (NEGATIVE); OPIATES,URINE NEGATIVE (NEGATIVE); OXYCODONE,URINE NEGATIVE (NEGATIVE); PHENCYCLIDINE,URINE NEGATIVE (NEGATIVE); TCA,URINE NEGATIVE (NEGATIVE)
[2021-09-26 02:43] LABS: ANION GAP 10.8 mEq/L (7-13); CHLORIDE,CL 100 mmol/L (98-107); SODIUM,NA 136 mmol/L (136-145)
[2021-09-26 02:45] LABS: ACETAMINOPHEN 0 ug/mL (10-30 (Therapeutic)); ESTIMATED GFR 53 mL/min (>=60)
[2021-09-26 03:54] VITALS: BP 143/64; PULSE 82
== END 2021-09-26 03:45 ==
LOC: DL.ED 02:13
DX: R44.0 Auditory hallucinations (principal); R45.851 Suicidal ideations; J44.9 Chronic obstructive pulmonary disease, unspecified; E11.9 Type 2 diabetes mellitus without complications; E03.9 Hypothyroidism, unspecified; E78.00 Pure hypercholesterolemia, unspecified; E66.9 Obesity, unspecified; Z79.4 Long term (current) use of insulin; Z79.899 Other long term (current) drug therapy; Z68.34 Body mass index [BMI] 34.0-34.9, adult
CPT/HCPCS: 36415; 80053; 80143; 80179; 80305-QW; 80307; 81001; 81025; 85025; 99285

== ENCOUNTER 2021-10-04 22:30 | Emergency (ER) | payer MEDICARE, MEDICAID ==
[2021-10-04 22:32] VITALS: BP 116/114; PULSE 85
[2021-10-04 22:51] LABS: AMPHETAMINES,URINE NEGATIVE (NEGATIVE); BARBITURATES,URINE NEGATIVE (NEGATIVE); BENZODIAZEPINE,URINE NEGATIVE (NEGATIVE); MDMA (ECSTASY), URINE NEGATIVE (NEGATIVE); METHADONE,URINE NEGATIVE (NEGATIVE); METHAMPHETAMINES,URINE NEGATIVE (NEGATIVE); OPIATES,URINE NEGATIVE (NEGATIVE); OXYCODONE,URINE NEGATIVE (NEGATIVE); PHENCYCLIDINE,URINE NEGATIVE (NEGATIVE); TCA,URINE NEGATIVE (NEGATIVE)
[2021-10-04 23:39] LABS: ANION GAP 13.9 mEq/L (7-13); CHLORIDE,CL 97 mmol/L (98-107); SODIUM,NA 133 mmol/L (136-145)
[2021-10-04 23:45] LABS: ESTIMATED GFR 44 mL/min (>=60)
== END 2021-10-04 23:59 | disposition home or self-care (01) ==
LOC: DL.ED 22:30
DX: R45.851 Suicidal ideations (principal); F43.9 Reaction to severe stress, unspecified; J44.9 Chronic obstructive pulmonary disease, unspecified; E11.9 Type 2 diabetes mellitus without complications; F17.210 Nicotine dependence, cigarettes, uncomplicated; E66.9 Obesity, unspecified; Z68.30 Body mass index [BMI] 30.0-30.9, adult; Z79.899 Other long term (current) drug therapy; Z79.4 Long term (current) use of insulin; Z79.84 Long term (current) use of oral hypoglycemic drugs
CPT/HCPCS: 36415; 80053; 80305-QW; 80307; 85025; 99285

== ENCOUNTER 2021-10-06 11:11 | Emergency (ER) | payer MEDICARE, MEDICAID ==
[2021-10-06 11:23] VITALS: BP 115/54; PULSE 93
[2021-10-06] MEDS ORDERED: Sodium Chloride 0.9% 1,000 ML IV ONE (11:33)
[2021-10-06 12:05] LABS: AMPHETAMINES,URINE NEGATIVE (NEGATIVE); BARBITURATES,URINE NEGATIVE (NEGATIVE); BENZODIAZEPINE,URINE NEGATIVE (NEGATIVE); MDMA (ECSTASY), URINE NEGATIVE (NEGATIVE); METHADONE,URINE NEGATIVE (NEGATIVE); METHAMPHETAMINES,URINE NEGATIVE (NEGATIVE); OPIATES,URINE NEGATIVE (NEGATIVE); OXYCODONE,URINE NEGATIVE (NEGATIVE); PHENCYCLIDINE,URINE NEGATIVE (NEGATIVE); TCA,URINE NEGATIVE (NEGATIVE)
[2021-10-06 12:11] LABS: CHLORIDE,CL 100 mmol/L (98-107); SODIUM,NA 135 mmol/L (136-145)
[2021-10-06 12:14] LABS: ESTIMATED GFR 44 mL/min (>=60)
== END 2021-10-06 14:22 | disposition home or self-care (01) ==
LOC: DL.ED 11:11
DX: E11.65 Type 2 diabetes mellitus with hyperglycemia (principal); E78.00 Pure hypercholesterolemia, unspecified; J44.9 Chronic obstructive pulmonary disease, unspecified; E03.9 Hypothyroidism, unspecified; F17.210 Nicotine dependence, cigarettes, uncomplicated; Z79.899 Other long term (current) drug therapy; Z79.4 Long term (current) use of insulin; Z20.822 Contact with and (suspected) exposure to COVID-19
CPT/HCPCS: 36415; 80053; 80305-QW; 81003; 82009; 82150; 82947; 83605; 83690; 83735; 85025; 96360; 99284-25; J7030; U0002

== ENCOUNTER 2021-10-18 00:25 | Emergency (ER) | payer MEDICARE, MEDICAID ==
[2021-10-18 00:50] VITALS: BP 123/52; PULSE 97
[2021-10-18] MEDS ORDERED: Fluconazole 100 MG Tab PO ONE (01:18)
[2021-10-18] MEDS ORDERED: metroNIDAZOLE 250 MG Tab PO ONE (01:19)
== END 2021-10-18 01:28 | disposition home or self-care (01) ==
LOC: DL.ED 00:25
DX: N76.0 Acute vaginitis (principal); B37.3 Candidiasis of vulva and vagina; J44.9 Chronic obstructive pulmonary disease, unspecified; E03.9 Hypothyroidism, unspecified; E11.9 Type 2 diabetes mellitus without complications; F17.210 Nicotine dependence, cigarettes, uncomplicated; E66.9 Obesity, unspecified; Z68.30 Body mass index [BMI] 30.0-30.9, adult; Z79.4 Long term (current) use of insulin; Z79.899 Other long term (current) drug therapy; Z79.84 Long term (current) use of oral hypoglycemic drugs
CPT/HCPCS: 87210; 99284; A9270

== ENCOUNTER 2021-11-07 23:40 | Emergency (ER) | payer MEDICARE, MEDICAID ==
[2021-11-08 02:12] VITALS: BP 125/71; PULSE 79
== END 2021-11-08 02:55 | disposition left against medical advice (07) ==
LOC: DL.ED 23:40
DX: Z53.21 Procedure and treatment not carried out due to patient leaving prior to being seen by health care provider (principal)

== ENCOUNTER 2021-11-08 04:33 | Emergency (ER) | payer MEDICARE, MEDICAID ==
[2021-11-08 04:58] VITALS: BP 125/72; PULSE 79
== END 2021-11-08 04:57 | disposition home or self-care (01) ==
LOC: DL.ED 04:33
DX: R59.9 Enlarged lymph nodes, unspecified (principal); E78.00 Pure hypercholesterolemia, unspecified; J44.9 Chronic obstructive pulmonary disease, unspecified; E11.9 Type 2 diabetes mellitus without complications; E03.9 Hypothyroidism, unspecified; D64.9 Anemia, unspecified; F17.210 Nicotine dependence, cigarettes, uncomplicated; E66.9 Obesity, unspecified; Z79.4 Long term (current) use of insulin; Z79.899 Other long term (current) drug therapy; Z68.33 Body mass index [BMI] 33.0-33.9, adult
CPT/HCPCS: 99283

== ENCOUNTER 2021-11-18 16:55 | Emergency (ER) | payer MEDICARE, MEDICAID | END 2021-11-18 17:07 | disposition left against medical advice (07) | LOC: DL.ED 16:55 | DX: Z53.21 Procedure and treatment not carried out due to patient leaving prior to being seen by health care provider (principal) ==

== ENCOUNTER 2021-12-12 11:11 | Emergency (ER) | payer MEDICARE, MEDICAID ==
[2021-12-12 11:19] VITALS: BP 121/57; PULSE 72
[2021-12-12 11:37] LABS: AMPHETAMINES,URINE NEGATIVE (NEGATIVE); BARBITURATES,URINE NEGATIVE (NEGATIVE); BENZODIAZEPINE,URINE NEGATIVE (NEGATIVE); MDMA (ECSTASY), URINE NEGATIVE (NEGATIVE); METHADONE,URINE NEGATIVE (NEGATIVE); METHAMPHETAMINES,URINE NEGATIVE (NEGATIVE); OPIATES,URINE NEGATIVE (NEGATIVE); OXYCODONE,URINE NEGATIVE (NEGATIVE); PHENCYCLIDINE,URINE NEGATIVE (NEGATIVE); TCA,URINE NEGATIVE (NEGATIVE)
[2021-12-12 12:04] LABS: ANION GAP 10.2 mEq/L (7-13); CHLORIDE,CL 97 mmol/L (98-107); ESTIMATED GFR 70 mL/min (>=60); SODIUM,NA 131 mmol/L (136-145)
== END 2021-12-12 12:26 | disposition home or self-care (01) ==
LOC: DL.ED 11:11
DX: F41.9 Anxiety disorder, unspecified (principal); E83.42 Hypomagnesemia; E78.00 Pure hypercholesterolemia, unspecified; J44.9 Chronic obstructive pulmonary disease, unspecified; E11.9 Type 2 diabetes mellitus without complications; E03.9 Hypothyroidism, unspecified; E66.9 Obesity, unspecified; Z68.29 Body mass index [BMI] 29.0-29.9, adult; Z79.4 Long term (current) use of insulin; Z79.899 Other long term (current) drug therapy
CPT/HCPCS: 36415; 80053; 80305; 80307; 81001; 83735; 85025; 99284; C1758

== ENCOUNTER 2022-01-11 18:55 | Emergency (ER) | payer MEDICARE, MEDICAID ==
[2022-01-11 19:12] VITALS: BP 126/68; PULSE 89
[2022-01-11] MEDS ORDERED: Magnesium Sulfate/Water 2 GM in Premix Bag 1 BAG IV ONE ×2 (20:08→20:09)
[2022-01-11] MEDS ORDERED: Potassium Chloride 20 MEQ in Premix Bag 1 BAG IV ONE (20:09)
[2022-01-11 21:55] LABS: AMPHETAMINES,URINE NEGATIVE (NEGATIVE); BARBITURATES,URINE NEGATIVE (NEGATIVE); BENZODIAZEPINE,URINE NEGATIVE (NEGATIVE); MDMA (ECSTASY), URINE NEGATIVE (NEGATIVE); METHADONE,URINE NEGATIVE (NEGATIVE); METHAMPHETAMINES,URINE NEGATIVE (NEGATIVE); OPIATES,URINE NEGATIVE (NEGATIVE); OXYCODONE,URINE NEGATIVE (NEGATIVE); PHENCYCLIDINE,URINE NEGATIVE (NEGATIVE); TCA,URINE NEGATIVE (NEGATIVE)
== END 2022-01-11 23:55 | disposition home or self-care (01) ==
LOC: DL.ED 18:55
DX: T38.3X2A Poisoning by insulin and oral hypoglycemic [antidiabetic] drugs, intentional self-harm, initial encounter (principal); E87.6 Hypokalemia; E83.42 Hypomagnesemia; F43.0 Acute stress reaction; J44.9 Chronic obstructive pulmonary disease, unspecified; E78.00 Pure hypercholesterolemia, unspecified; E11.9 Type 2 diabetes mellitus without complications; F17.210 Nicotine dependence, cigarettes, uncomplicated; E66.9 Obesity, unspecified; Z68.35 Body mass index [BMI] 35.0-35.9, adult; Z79.4 Long term (current) use of insulin; Z79.899 Other long term (current) drug therapy; Z79.84 Long term (current) use of oral hypoglycemic drugs; X83.8XXA Intentional self-harm by other specified means, initial encounter
CPT/HCPCS: 36415; 80053; 80305; 80307; 81001; 82947; 83605; 83735; 84132; 85025; 96365; 96366; 96368; 99285; J3475; J3480

== ENCOUNTER 2022-02-13 14:53 | Emergency (ER) | payer MEDICARE, MEDICAID ==
[2022-02-13 16:17] VITALS: BP 125/68; PULSE 84
[2022-02-13 16:40] LABS: AMPHETAMINES,URINE NEGATIVE (NEGATIVE); BARBITURATES,URINE NEGATIVE (NEGATIVE); BENZODIAZEPINE,URINE NEGATIVE (NEGATIVE); MDMA (ECSTASY), URINE NEGATIVE (NEGATIVE); METHADONE,URINE NEGATIVE (NEGATIVE); METHAMPHETAMINES,URINE NEGATIVE (NEGATIVE); OPIATES,URINE NEGATIVE (NEGATIVE); OXYCODONE,URINE NEGATIVE (NEGATIVE); PHENCYCLIDINE,URINE NEGATIVE (NEGATIVE); TCA,URINE NEGATIVE (NEGATIVE)
[2022-02-13 17:14] LABS: ANION GAP 12.8 mEq/L (7-13); CHLORIDE,CL 95 mmol/L (98-107); SODIUM,NA 133 mmol/L (136-145)
[2022-02-13 17:15] LABS: ACETAMINOPHEN 0 ug/mL (10-30 (Therapeutic)); ESTIMATED GFR 58 mL/min (>=60)
[2022-02-13 17:59] LABS: CORONAVIRUS COVID-19 NAA NEGATIVE (NEGATIVE); RESPIRATORY SYNCYTIAL VIR NAA NEGATIVE (NEGATIVE)
== END 2022-02-13 17:45 | disposition left against medical advice (07) ==
LOC: DL.ED 14:53
DX: F23 Brief psychotic disorder (principal); J44.9 Chronic obstructive pulmonary disease, unspecified; E78.00 Pure hypercholesterolemia, unspecified; E11.9 Type 2 diabetes mellitus without complications; E66.9 Obesity, unspecified; Z68.29 Body mass index [BMI] 29.0-29.9, adult; Z79.4 Long term (current) use of insulin; Z79.899 Other long term (current) drug therapy; Z79.84 Long term (current) use of oral hypoglycemic drugs; Z20.822 Contact with and (suspected) exposure to COVID-19
CPT/HCPCS: 0241U; 36415; 80053; 80143; 80179; 80305; 80307; 81001; 81025; 85025; 99284

== ENCOUNTER 2022-02-18 10:58 | Emergency (ER) | payer MEDICARE, MEDICAID ==
[2022-02-18 11:10] VITALS: BP 124/72; PULSE 84
[2022-02-18 11:34] LABS: AMPHETAMINES,URINE NEGATIVE (NEGATIVE); BARBITURATES,URINE NEGATIVE (NEGATIVE); BENZODIAZEPINE,URINE NEGATIVE (NEGATIVE); MDMA (ECSTASY), URINE NEGATIVE (NEGATIVE); METHADONE,URINE NEGATIVE (NEGATIVE); METHAMPHETAMINES,URINE NEGATIVE (NEGATIVE); OPIATES,URINE NEGATIVE (NEGATIVE); OXYCODONE,URINE NEGATIVE (NEGATIVE); PHENCYCLIDINE,URINE NEGATIVE (NEGATIVE); TCA,URINE NEGATIVE (NEGATIVE)
[2022-02-18 11:41] LABS: PTT,PARTIAL THROMBOPLSTIN TIME 23.1 SEC (22.0-34.0)
[2022-02-18 11:51] LABS: ACETAMINOPHEN 0 ug/mL (10-30 (Therapeutic)); ANION GAP 14.2 mEq/L (7-13); CHLORIDE,CL 97 mmol/L (98-107); ESTIMATED GFR 67 mL/min (>=60); SODIUM,NA 134 mmol/L (136-145)
== END 2022-02-18 12:18 | disposition home or self-care (01) ==
LOC: DL.ED 10:58
DX: F41.9 Anxiety disorder, unspecified (principal); F91.9 Conduct disorder, unspecified; E78.00 Pure hypercholesterolemia, unspecified; J44.9 Chronic obstructive pulmonary disease, unspecified; E11.9 Type 2 diabetes mellitus without complications; E03.9 Hypothyroidism, unspecified; E66.9 Obesity, unspecified; Z79.4 Long term (current) use of insulin; Z79.899 Other long term (current) drug therapy; Z68.32 Body mass index [BMI] 32.0-32.9, adult
CPT/HCPCS: 36415; 80053; 80143; 80179; 80305-QW; 80307; 81001; 81025; 83735; 84443; 85025; 85610; 85730; 99285

== ENCOUNTER 2022-02-22 04:45 | Emergency (ER) | payer MEDICARE, MEDICAID ==
[~2022-02-22 04:45] MED LIST changes: -Dextrose 5%-0.45% NaCl 1,000 ML IV SCH
[2022-02-22 05:18] VITALS: BP 98/47; PULSE 77
[2022-02-22] MEDS ORDERED: Sodium Chloride 0.9% 1,000 ML IV ONE ×2 (05:37→06:14)
[2022-02-22 05:43] LABS: CHLORIDE,CL 101 mmol/L (98-107); SODIUM,NA 138 mmol/L (136-145)
[2022-02-22 05:44] LABS: ACETAMINOPHEN 0 ug/mL (10-30 (Therapeutic)); ESTIMATED GFR 48 mL/min (>=60)
[2022-02-22] MEDS ORDERED: Magnesium Sulfate/Water 2 GM in Premix Bag 1 BAG IV ONE (05:53)
[2022-02-22 07:03] LABS: AMPHETAMINES,URINE NEGATIVE (NEGATIVE); BARBITURATES,URINE NEGATIVE (NEGATIVE); BENZODIAZEPINE,URINE NEGATIVE (NEGATIVE); MDMA (ECSTASY), URINE NEGATIVE (NEGATIVE); METHADONE,URINE NEGATIVE (NEGATIVE); METHAMPHETAMINES,URINE NEGATIVE (NEGATIVE); OPIATES,URINE NEGATIVE (NEGATIVE); OXYCODONE,URINE NEGATIVE (NEGATIVE); PHENCYCLIDINE,URINE NEGATIVE (NEGATIVE); TCA,URINE NEGATIVE (NEGATIVE)
[2022-02-22 08:07] LABS: ANION GAP 10.2 mEq/L (7-13); CHLORIDE,CL 105 mmol/L (98-107); SODIUM,NA 140 mmol/L (136-145)
[2022-02-22 08:08] LABS: ESTIMATED GFR 52 mL/min (>=60)
== END 2022-02-22 08:53 | disposition home or self-care (01) ==
LOC: DL.ED 04:45
DX: T50.902A Poisoning by unspecified drugs, medicaments and biological substances, intentional self-harm, initial encounter (principal); E78.00 Pure hypercholesterolemia, unspecified; J44.9 Chronic obstructive pulmonary disease, unspecified; E11.9 Type 2 diabetes mellitus without complications; E03.9 Hypothyroidism, unspecified; E66.9 Obesity, unspecified; Z79.4 Long term (current) use of insulin; Z79.899 Other long term (current) drug therapy
CPT/HCPCS: 36415; 80053; 80143; 80179; 80305; 80307; 81001; 81025; 82140; 83540; 83605; 83735; 84100; 84443; 85025; 93005; 96361; 96365; 99285; J3475; J3490; J7030

== ENCOUNTER 2022-02-25 09:13 | Emergency (ER) | payer MEDICARE, MEDICAID ==
[2022-02-25 09:52] VITALS: BP 128/50; PULSE 63
[2022-02-25 11:29] LABS: CHLORIDE,CL 97 mmol/L (98-107)
[2022-02-25 11:33] LABS: ACETAMINOPHEN 0 ug/mL (10-30 (Therapeutic)); ESTIMATED GFR 54 mL/min (>=60)
[2022-02-25] MEDS ORDERED: Sodium Chloride 3% 500 ML IV SCH (11:45)
[2022-02-25 12:02] LABS: AMPHETAMINES,URINE NEGATIVE (NEGATIVE); BARBITURATES,URINE NEGATIVE (NEGATIVE); BENZODIAZEPINE,URINE NEGATIVE (NEGATIVE); MDMA (ECSTASY), URINE NEGATIVE (NEGATIVE); METHADONE,URINE POSITIVE (NEGATIVE); METHAMPHETAMINES,URINE NEGATIVE (NEGATIVE); OPIATES,URINE NEGATIVE (NEGATIVE); OXYCODONE,URINE NEGATIVE (NEGATIVE); PHENCYCLIDINE,URINE NEGATIVE (NEGATIVE); TCA,URINE NEGATIVE (NEGATIVE)
[2022-02-25 13:30] LABS: ANION GAP 10.1 mEq/L (7-13)
[2022-02-26 10:49] LABS: ANION GAP 16.2 mEq/L (7-13); SODIUM,NA 136 mmol/L (136-145)
== END 2022-02-25 13:47 | disposition home or self-care (01) ==
LOC: DL.ED 09:13
DX: T39.392A Poisoning by other nonsteroidal anti-inflammatory drugs [NSAID], intentional self-harm, initial encounter (principal); T48.5X2A Poisoning by other anti-common-cold drugs, intentional self-harm, initial encounter; E87.1 Hypo-osmolality and hyponatremia; J44.9 Chronic obstructive pulmonary disease, unspecified; E78.00 Pure hypercholesterolemia, unspecified; E11.9 Type 2 diabetes mellitus without complications; F17.210 Nicotine dependence, cigarettes, uncomplicated; E66.9 Obesity, unspecified; Z68.35 Body mass index [BMI] 35.0-35.9, adult; Z79.4 Long term (current) use of insulin; Z79.899 Other long term (current) drug therapy; Z79.84 Long term (current) use of oral hypoglycemic drugs
CPT/HCPCS: 36415; 80048; 80053; 80143; 80179; 80305; 80307; 81001; 84484; 85025; 87086; 99284; J7131

== ENCOUNTER 2022-03-03 19:08 | Emergency (ER) | payer MEDICARE, MEDICAID ==
[2022-03-03 19:24] VITALS: BP 125/77; PULSE 75
[2022-03-03 20:19] LABS: AMPHETAMINES,URINE NEGATIVE (NEGATIVE); BARBITURATES,URINE NEGATIVE (NEGATIVE); BENZODIAZEPINE,URINE NEGATIVE (NEGATIVE); MDMA (ECSTASY), URINE NEGATIVE (NEGATIVE); METHADONE,URINE NEGATIVE (NEGATIVE); METHAMPHETAMINES,URINE NEGATIVE (NEGATIVE); OPIATES,URINE NEGATIVE (NEGATIVE); OXYCODONE,URINE NEGATIVE (NEGATIVE); PHENCYCLIDINE,URINE NEGATIVE (NEGATIVE); TCA,URINE NEGATIVE (NEGATIVE)
[2022-03-03 20:33] LABS: ANION GAP 11.6 mEq/L (7-13); CHLORIDE,CL 101 mmol/L (98-107); SODIUM,NA 139 mmol/L (136-145)
[2022-03-03 20:38] LABS: ESTIMATED GFR 76 mL/min (>=60)
== END 2022-03-03 20:57 | disposition home or self-care (01) ==
LOC: DL.ED 19:08
DX: Z02.89 Encounter for other administrative examinations (principal); E78.00 Pure hypercholesterolemia, unspecified; J44.9 Chronic obstructive pulmonary disease, unspecified; E11.9 Type 2 diabetes mellitus without complications; E03.9 Hypothyroidism, unspecified; E66.9 Obesity, unspecified; Z68.1 Body mass index [BMI] 19.9 or less, adult; Z72.0 Tobacco use; Z79.4 Long term (current) use of insulin; Z79.899 Other long term (current) drug therapy
CPT/HCPCS: 36415; 80053; 80143; 80179; 80305-QW; 80307; 83735; 84443; 85025; 99283

== ENCOUNTER 2022-04-10 06:01 | Inpatient (IN) | payer MEDICARE, MEDICAID ==
[2022-04-10] MEDS: Sodium Chloride 0.9% 10 ML Syringe FLUSH PRN (06:05)
[2022-04-10] MEDS ORDERED: Activated Charcoal/Water Susp 50 GM/240 ML Tube ONE (06:07)
[2022-04-10] MEDS ORDERED: Activated Charcoal/Water Susp 50 GM/240 ML Tube PO ONE (06:14)
[2022-04-10 06:41] LABS: ANION GAP 12.3 mEq/L (7-13); CHLORIDE,CL 101 mmol/L (98-107); SODIUM,NA 136 mmol/L (136-145)
[2022-04-10 06:47] LABS: ESTIMATED GFR 50 mL/min (>=60)
[2022-04-10] MEDS ORDERED: Sodium Chloride 0.9% 1,000 ML IV ONE (06:50)
[2022-04-10 06:52] LABS: O2 DELIVERY DEVICE ROOM AIR
[2022-04-10 06:58] LABS: BASE EXCESS VENOUS 0 mmol/l ((-2)-(+3)); BICARBONATE,VENOUS 25 mmol/l (19-25); O2 SATURATION VENOUS 72 % (60-80); PCO2 VENOUS 44 mmHg (41-51); PH,VENOUS 7.37 (7.31-7.41); PO2 VENOUS 40 mmHg (35-42)
[2022-04-10] MEDS ORDERED: Bisacodyl 5 MG Tab PO PRN (12:02)
[2022-04-10] MEDS ORDERED: Polyethylene Glycol 3350 Powder 17 GM Packet PO PRN (12:02)
[2022-04-10] MEDS ORDERED: Albuterol/Ipratropium 3.0-0.5 MG/3 ML Neb Soln NEB PRN (12:02)
[2022-04-10] MEDS ORDERED: HYDROmorphone 0.5 MG/0.5 ML Syringe IVPUSH PRN (12:02)
[2022-04-10] MEDS ORDERED: Ketorolac 30 MG/ML SDV IVPUSH PRN (12:02)
[2022-04-10] MEDS ORDERED: Ondansetron 4 MG/2 ML SDV IVPUSH PRN (12:02)
[2022-04-10] MEDS ORDERED: Magnesium Hydroxide 400 MG/5 ML Susp 30 ML Cup PO PRN (12:02)
[2022-04-10] MEDS ORDERED: hydrALAZINE 20 MG/ML SDV IVPUSH PRN (12:05)
[2022-04-10] MEDS ORDERED: Flumazenil 0.1 MG/ML 5 ML MDV IVPUSH PRN (12:05)
[2022-04-10] MEDS ORDERED: Metoprolol Tartrate 5 MG/5 ML SDV IVPUSH PRN (12:05)
[2022-04-10] MEDS ORDERED: LORazepam 2 MG/ML SDV IVPUSH PRN (12:05)
[2022-04-10] MEDS ORDERED: Midodrine 2.5 MG Tab PO PRN (12:05)
[2022-04-10] MEDS ORDERED: Haloperidol Lactate 5 MG/ML SDV IVPUSH PRN (12:14)
[2022-04-10] MEDS ORDERED: Sodium Chloride 0.9% 1,000 ML IV SCH (12:15)
[2022-04-10 13:48] LABS: AMPHETAMINES,URINE NEGATIVE (NEGATIVE); BARBITURATES,URINE NEGATIVE (NEGATIVE); BENZODIAZEPINE,URINE NEGATIVE (NEGATIVE); MDMA (ECSTASY), URINE NEGATIVE (NEGATIVE); METHADONE,URINE NEGATIVE (NEGATIVE); METHAMPHETAMINES,URINE NEGATIVE (NEGATIVE); OPIATES,URINE NEGATIVE (NEGATIVE); OXYCODONE,URINE NEGATIVE (NEGATIVE); PHENCYCLIDINE,URINE NEGATIVE (NEGATIVE); TCA,URINE NEGATIVE (NEGATIVE)
[2022-04-10 18:47] LABS: ANION GAP 11.9 mEq/L (7-13)
[2022-04-10] MEDS ORDERED: Glucagon,Human Recombinant 1 MG Vial IM PRN (18:58)
[2022-04-10] MEDS ORDERED: 50% Dextrose in Water 50 ML Syringe IVPUSH PRN (18:58)
[2022-04-10] MEDS ORDERED: Dextrose 5%-0.9% NaCl 1,000 ML IV SCH (19:00)
[2022-04-10] MEDS: Pantoprazole 40 MG Vial IVPUSH SCH (19:20)
[2022-04-10 23:11] LABS: ANION GAP 11.7 mEq/L (7-13)
[2022-04-11 02:30] LABS: ANION GAP 9.6 mEq/L (7-13)
[2022-04-11] MEDS: Pantoprazole 40 MG Vial IVPUSH SCH ×2 (06:17→17:57)
[2022-04-11] MEDS: Sodium Chloride 0.9% 10 ML Syringe FLUSH PRN (06:17)
[2022-04-11 07:20] LABS: ANION GAP 8.9 mEq/L (7-13)
[2022-04-11] MEDS ORDERED: Insulin Lispro 100 Units/ML 3 ML Vial SUBCUT SCH (08:00)
[2022-04-11] MEDS ORDERED: Magnesium Sulfate/Water 2 GM in Premix Bag 1 BAG IV ONE ×4 (09:00→18:00)
[2022-04-11] MEDS ORDERED: Sodium Chloride 0.9% 1,000 ML IV SCH (09:00)
[2022-04-11] MEDS: Insulin Lispro 100 Units/ML 3 ML Vial SUBCUT SCH ×2 (11:40→17:06)
[2022-04-11] MEDS ORDERED: Nicotine 21 MG/24 Hr Patch TRDERM ONE (12:30)
[2022-04-11 16:32] VITALS: BP 171/73; PULSE 63
[2022-04-11 17:54] LABS: ANION GAP 10.2 mEq/L (7-13)
== END 2022-04-11 18:50 | disposition home or self-care (01) | DRG 917 ==
LOC: DL.ED 06:01 → DL.MS 10:48
PROVIDERS: ADMIT Internal Medicine; ATTEND Internal Medicine
DX: T50.992A Poisoning by other drugs, medicaments and biological substances, intentional self-harm, initial encounter (principal); G92.8 Other toxic encephalopathy; E11.9 Type 2 diabetes mellitus without complications; N17.9 Acute kidney failure, unspecified; F25.9 Schizoaffective disorder, unspecified; D64.9 Anemia, unspecified; E11.65 Type 2 diabetes mellitus with hyperglycemia; E83.42 Hypomagnesemia; X83.8XXA Intentional self-harm by other specified means, initial encounter; E66.9 Obesity, unspecified; F31.9 Bipolar disorder, unspecified; E78.5 Hyperlipidemia, unspecified; E11.22 Type 2 diabetes mellitus with diabetic chronic kidney disease; E11.42 Type 2 diabetes mellitus with diabetic polyneuropathy; G47.00 Insomnia, unspecified; E03.9 Hypothyroidism, unspecified; K21.9 Gastro-esophageal reflux disease without esophagitis; K59.09 Other constipation; E78.00 Pure hypercholesterolemia, unspecified; J44.9 Chronic obstructive pulmonary disease, unspecified; Z79.4 Long term (current) use of insulin; Z68.35 Body mass index [BMI] 35.0-35.9, adult; Z79.899 Other long term (current) drug therapy
CPT/HCPCS: 36415; 70450; 80048; 80053; 80143; 80179; 80305-QW; 80307; 81001; 82803; 82947; 83605; 83735; 85025; 93005; 99223; 99238; A9270-GY; C9113; J1815-GY; J3475; J3490; J7030; J7042

== ENCOUNTER 2022-05-30 03:33 | Emergency (ER) | payer MEDICARE, MEDICAID ==
[2022-05-30 04:01] VITALS: BP 129/81; PULSE 93
== END 2022-05-30 04:29 | disposition home or self-care (01) ==
LOC: DL.ED 03:33
DX: F60.3 Borderline personality disorder (principal); R45.851 Suicidal ideations; J44.9 Chronic obstructive pulmonary disease, unspecified; E11.9 Type 2 diabetes mellitus without complications; E78.00 Pure hypercholesterolemia, unspecified; E03.9 Hypothyroidism, unspecified; E66.9 Obesity, unspecified; Z68.30 Body mass index [BMI] 30.0-30.9, adult; Z79.4 Long term (current) use of insulin; Z79.899 Other long term (current) drug therapy; Z72.0 Tobacco use
CPT/HCPCS: 99283

== ENCOUNTER 2022-06-06 18:22 | Emergency (ER) | payer MEDICARE, MEDICAID ==
[2022-06-06 19:11] LABS: AMPHETAMINES,URINE NEGATIVE (NEGATIVE); BARBITURATES,URINE NEGATIVE (NEGATIVE); BENZODIAZEPINE,URINE NEGATIVE (NEGATIVE); MDMA (ECSTASY), URINE NEGATIVE (NEGATIVE); METHADONE,URINE NEGATIVE (NEGATIVE); METHAMPHETAMINES,URINE NEGATIVE (NEGATIVE); OPIATES,URINE NEGATIVE (NEGATIVE); OXYCODONE,URINE NEGATIVE (NEGATIVE); PHENCYCLIDINE,URINE NEGATIVE (NEGATIVE); TCA,URINE NEGATIVE (NEGATIVE)
[2022-06-06 19:29] LABS: ANION GAP 13.7 mEq/L (7-13); CHLORIDE,CL 97 mmol/L (98-107); SODIUM,NA 137 mmol/L (136-145)
[2022-06-06 19:31] LABS: ACETAMINOPHEN 0 ug/mL (10-30 (Therapeutic)); ESTIMATED GFR 53 mL/min (>=60)
[2022-06-06 22:41] LABS: ANION GAP 13.2 mEq/L (7-13)
[2022-06-07 02:03] VITALS: BP 101/67; PULSE 73
== END 2022-06-07 03:31 | disposition home or self-care (01) ==
LOC: DL.ED 18:22
DX: T56.892A Toxic effect of other metals, intentional self-harm, initial encounter (principal); T36.0X2A Poisoning by penicillins, intentional self-harm, initial encounter; T36.1X2A Poisoning by cephalosporins and other beta-lactam antibiotics, intentional self-harm, initial encounter; T46.6X2A Poisoning by antihyperlipidemic and antiarteriosclerotic drugs, intentional self-harm, initial encounter; T46.4X2A Poisoning by angiotensin-converting-enzyme inhibitors, intentional self-harm, initial encounter; T47.1X2A Poisoning by other antacids and anti-gastric-secretion drugs, intentional self-harm, initial encounter; T44.3X2A Poisoning by other parasympatholytics [anticholinergics and antimuscarinics] and spasmolytics, intentional self-harm, initial encounter; T43.592A Poisoning by other antipsychotics and neuroleptics, intentional self-harm, initial encounter; T38.3X2A Poisoning by insulin and oral hypoglycemic [antidiabetic] drugs, intentional self-harm, initial encounter; T38.1X2A Poisoning by thyroid hormones and substitutes, intentional self-harm, initial encounter; T43.222A Poisoning by selective serotonin reuptake inhibitors, intentional self-harm, initial encounter; T50.992A Poisoning by other drugs, medicaments and biological substances, intentional self-harm, initial encounter; E78.00 Pure hypercholesterolemia, unspecified; J44.9 Chronic obstructive pulmonary disease, unspecified; E11.9 Type 2 diabetes mellitus without complications; E03.9 Hypothyroidism, unspecified; E66.9 Obesity, unspecified; Z68.35 Body mass index [BMI] 35.0-35.9, adult; Z72.0 Tobacco use; Z79.4 Long term (current) use of insulin; Z79.899 Other long term (current) drug therapy
CPT/HCPCS: 36415; 80048; 80053; 80143; 80179; 80305-QW; 80307; 81001; 83605; 83735; 84484; 85025; 93005; 93010; 99285

== ENCOUNTER 2022-06-26 04:17 | Emergency (ER) | payer MEDICARE, MEDICAID ==
[2022-06-26 04:32] VITALS: BP 126/65; PULSE 98
== END 2022-06-26 04:38 | disposition home or self-care (01) ==
LOC: DL.ED 04:17
DX: H92.02 Otalgia, left ear (principal); J44.9 Chronic obstructive pulmonary disease, unspecified; E78.00 Pure hypercholesterolemia, unspecified; E11.9 Type 2 diabetes mellitus without complications; E03.9 Hypothyroidism, unspecified; E66.9 Obesity, unspecified; Z68.35 Body mass index [BMI] 35.0-35.9, adult; Z79.4 Long term (current) use of insulin; Z79.899 Other long term (current) drug therapy
CPT/HCPCS: 99282; 99283

== ENCOUNTER 2022-07-17 01:05 | Emergency (ER) | payer MEDICARE, MEDICAID ==
[2022-07-17 01:34] VITALS: BP 128/69; PULSE 112
== END 2022-07-17 01:59 | disposition home or self-care (01) ==
LOC: DL.ED 01:05
DX: F25.0 Schizoaffective disorder, bipolar type (principal); F60.3 Borderline personality disorder; J44.9 Chronic obstructive pulmonary disease, unspecified; E78.00 Pure hypercholesterolemia, unspecified; E11.9 Type 2 diabetes mellitus without complications; E03.9 Hypothyroidism, unspecified; E66.9 Obesity, unspecified; Z79.4 Long term (current) use of insulin; Z79.899 Other long term (current) drug therapy; Z68.35 Body mass index [BMI] 35.0-35.9, adult
CPT/HCPCS: 99283

== ENCOUNTER 2022-07-19 20:11 | Emergency (ER) | payer MEDICARE, MEDICAID ==
[2022-07-19 20:38] VITALS: BP 127/65; PULSE 96
== END 2022-07-19 21:40 | disposition home or self-care (01) ==
LOC: DL.ED 20:11
DX: R45.82 Worries (principal); J44.9 Chronic obstructive pulmonary disease, unspecified; E78.00 Pure hypercholesterolemia, unspecified; E11.9 Type 2 diabetes mellitus without complications; E03.9 Hypothyroidism, unspecified; E66.9 Obesity, unspecified; Z72.0 Tobacco use; Z79.84 Long term (current) use of oral hypoglycemic drugs; Z79.899 Other long term (current) drug therapy; Z68.34 Body mass index [BMI] 34.0-34.9, adult
CPT/HCPCS: 99284

== ENCOUNTER 2022-07-23 02:57 | Emergency (ER) | payer MEDICARE, MEDICAID ==
[2022-07-23] MEDS ORDERED: Activated Charcoal/Water Susp 50 GM/240 ML Tube PO ONE (03:03)
[2022-07-23 03:22] LABS: BASOPHILS PERCENT AUTO 0.3 % (0.0-1.0); EOSINOPHILS PERCENT AUTO 2.7 % (1.0-3.0); HEMATOCRIT 40.4 % (37.0-47.0); HEMOGLOBIN 13.6 g/dL (12.0-16.0); LYMPHOCYTES PERCENT AUTO 37.8 % (20.5-50.1); MEAN CORPUSCULAR HEMOGLOBIN 26.1 pg (27.0-34.0); MEAN CORPUSCULAR HGB CONC 33.7 g/dL (33.0-35.0); MEAN CORPUSCULAR VOLUME 77.5 fL (80-100); MONOCYTES PERCENT AUTO 5.9 % (2-8); NEUTROPHILS PERCENT AUTO 53.3 % (42.2-75.2); PLATELET COUNT,PLT 157 10^3/uL (150-450); RED BLOOD CELL COUNT 5.21 10^6/uL (4.2-5.4); WHITE BLOOD CELL COUNT,WBC 12.8 10^3/uL (5.0-10.0)
[2022-07-23 03:23] LABS: APPEARANCE,URINE CLEAR (CLEAR); BILIRUBIN,URINE NEGATIVE (NEGATIVE); COLOR,URINE YELLOW (YELLOW); GLUCOSE,URINE 500 (NEGATIVE); KETONES,URINE NEGATIVE (NEGATIVE); LEUKOCYTE ESTERASE,URINE NEGATIVE (NEGATIVE); NITRITE,URINE NEGATIVE (NEGATIVE); OCCULT BLOOD,URINE NEGATIVE (NEGATIVE); PROTEIN,URINE 100 (NEGATIVE); UROBILINOGEN,URINE 0.2 mg/dL (0.2-1.0)
[2022-07-23 03:30] LABS: AMPHETAMINES,URINE NEGATIVE (NEGATIVE); BARBITURATES,URINE NEGATIVE (NEGATIVE); BENZODIAZEPINE,URINE NEGATIVE (NEGATIVE); MDMA (ECSTASY), URINE NEGATIVE (NEGATIVE); METHADONE,URINE NEGATIVE (NEGATIVE); METHAMPHETAMINES,URINE NEGATIVE (NEGATIVE); OPIATES,URINE NEGATIVE (NEGATIVE); OXYCODONE,URINE NEGATIVE (NEGATIVE); PHENCYCLIDINE,URINE NEGATIVE (NEGATIVE); TCA,URINE NEGATIVE (NEGATIVE)
[2022-07-23 03:33] VITALS: BP 112/54; PULSE 86
[2022-07-23 03:36] LABS: BACTERIA,URINE FEW /HPF (0-FEW/HPF); EPITHELIAL CELLS,URINE FEW /HPF (NOT SEEN); RBC,URINE 0-5 /HPF (0-5); WBC,URINE 0-5 /HPF (0-5/HPF)
[2022-07-23 03:39] LABS: A/G RATIO 0.9; ALANINE AMINOTRANSFERASE,ALT 39 U/L (14-59); ALBUMIN 3.4 g/dL (3.4-5.0); ALKALINE PHOSPHATASE 75 U/L (46-116); ANION GAP 10.3 mEq/L (7-13); ASPARTATE AMNIOTRANSFERASE,AST 11 U/L (15-37); BILIRUBIN TOTAL 0.2 mg/dL (0.2-1.0); BLOOD UREA NITROGEN,BUN 23 mg/dL (7-18); BUN/CREATININE RATIO 16.9 (No establ ref range); CALCIUM 9.1 mg/dL (8.5-10.1); CARBON DIOXIDE,CO2 31 mmol/L (21-32); CHLORIDE,CL 95 mmol/L (98-107); CREATININE 1.36 mg/dL (0.55-1.02); EST CRCL DRUG DOSING (CG) 37.13 mL/min; POTASSIUM,K 4.3 mmol/L (3.5-5.1); PROTEIN TOTAL,TP 7.4 g/dL (6.4-8.2); SODIUM,NA 132 mmol/L (136-145)
[2022-07-23 03:42] LABS: ESTIMATED GFR 49 mL/min (>=60); ETHANOL BLOOD MEDICAL < 3 mg/dL (0); GLUCOSE RANDOM 409 mg/dL (70-99)
== END 2022-07-23 04:19 | disposition home or self-care (01) ==
LOC: DL.ED 02:57
DX: T39.392A Poisoning by other nonsteroidal anti-inflammatory drugs [NSAID], intentional self-harm, initial encounter (principal); R45.851 Suicidal ideations; E11.9 Type 2 diabetes mellitus without complications; E03.9 Hypothyroidism, unspecified; J44.9 Chronic obstructive pulmonary disease, unspecified; E78.00 Pure hypercholesterolemia, unspecified; E66.9 Obesity, unspecified; Z68.43 Body mass index [BMI] 50.0-59.9, adult; Z79.84 Long term (current) use of oral hypoglycemic drugs; Z79.4 Long term (current) use of insulin; Z79.899 Other long term (current) drug therapy
CPT/HCPCS: 36415; 80053; 80143; 80179; 80305; 80307; 81001; 85025; 93005; 93010; 99284; 99285; A9270

== ENCOUNTER 2022-09-15 19:51 | Emergency (ER) | payer MEDICARE, MEDICAID ==
[2022-09-15 21:13] LABS: HEMATOCRIT 41.7 % (37.0-47.0); HEMOGLOBIN 14.1 g/dL (12.0-16.0); MEAN CORPUSCULAR HEMOGLOBIN 26.6 pg (27.0-34.0); MEAN CORPUSCULAR HGB CONC 33.8 g/dL (33.0-35.0); MEAN CORPUSCULAR VOLUME 78.7 fL (80-100); PLATELET COUNT,PLT 187 10^3/uL (150-450); WHITE BLOOD CELL COUNT,WBC 13.8 10^3/uL (5.0-10.0)
[2022-09-15 21:14] LABS: APPEARANCE,URINE CLEAR (CLEAR); BILIRUBIN,URINE NEGATIVE (NEGATIVE); COLOR,URINE YELLOW (YELLOW); GLUCOSE,URINE >=1000 (NEGATIVE); KETONES,URINE NEGATIVE (NEGATIVE); LEUKOCYTE ESTERASE,URINE NEGATIVE (NEGATIVE); NITRITE,URINE NEGATIVE (NEGATIVE); OCCULT BLOOD,URINE NEGATIVE (NEGATIVE); PROTEIN,URINE 100 (NEGATIVE); UROBILINOGEN,URINE 0.2 mg/dL (0.2-1.0)
[2022-09-15 21:22] LABS: BASOPHILS PERCENT AUTO 0.5 % (0.0-1.0); EOSINOPHILS PERCENT AUTO 2.4 % (1.0-3.0); LYMPHOCYTES PERCENT AUTO 33.5 % (20.5-50.1); MONOCYTES PERCENT AUTO 4.5 % (2-8); NEUTROPHILS PERCENT AUTO 59.1 % (42.2-75.2)
[2022-09-15 21:26] LABS: AMORPHOUS SEDIMENT,URINE RARE /HPF (NOT SEEN); AMPHETAMINES,URINE NEGATIVE (NEGATIVE); BACTERIA,URINE FEW /HPF (0-FEW/HPF); BARBITURATES,URINE NEGATIVE (NEGATIVE); BENZODIAZEPINE,URINE NEGATIVE (NEGATIVE); EPITHELIAL CELLS,URINE FEW /HPF (NOT SEEN); MDMA (ECSTASY), URINE NEGATIVE (NEGATIVE); METHADONE,URINE NEGATIVE (NEGATIVE); METHAMPHETAMINES,URINE POSITIVE (NEGATIVE); MUCUS,URINE RARE /LPF (NOT SEEN); OPIATES,URINE NEGATIVE (NEGATIVE); OXYCODONE,URINE NEGATIVE (NEGATIVE); PHENCYCLIDINE,URINE NEGATIVE (NEGATIVE); RBC,URINE 0-5 /HPF (0-5); TCA,URINE NEGATIVE (NEGATIVE); WBC,URINE 0-5 /HPF (0-5/HPF)
[2022-09-15 21:33] LABS: A/G RATIO 0.73; ACETAMINOPHEN 0 ug/mL (10-30 (Therapeutic)); ALANINE AMINOTRANSFERASE,ALT 38 U/L (14-59); ALBUMIN 3.3 g/dL (3.4-5.0); ALKALINE PHOSPHATASE 105 U/L (46-116); ANION GAP 13.7 mEq/L (7-13); ASPARTATE AMNIOTRANSFERASE,AST 21 U/L (15-37); BILIRUBIN TOTAL 0.2 mg/dL (0.2-1.0); BLOOD UREA NITROGEN,BUN 15 mg/dL (7-18); BUN/CREATININE RATIO 12.4 (No establ ref range); CALCIUM 9.1 mg/dL (8.5-10.1); CARBON DIOXIDE,CO2 29 mmol/L (21-32); CHLORIDE,CL 97 mmol/L (98-107); CREATININE 1.21 mg/dL (0.55-1.02); EST CRCL DRUG DOSING (CG) 45.46 mL/min; ESTIMATED GFR 56 mL/min (>=60); GLUCOSE RANDOM 344 mg/dL (70-99); POTASSIUM,K 4.7 mmol/L (3.5-5.1); PROTEIN TOTAL,TP 7.8 g/dL (6.4-8.2); SODIUM,NA 135 mmol/L (136-145)
[2022-09-15 21:34] LABS: ETHANOL BLOOD MEDICAL < 3 mg/dL (0)
[2022-09-15 21:39] LABS: EOSINOPHILS PERCENT MAN 3 % (1-3); LYMPHOCYTES PERCENT MAN 29 % (20-50); MONOCYTES PERCENT MAN 5 % (2-8); SEG NEUTROPHILS PERCENT MAN 63 % (42-75)
[2022-09-15 22:50] VITALS: BP 131/78; PULSE 88
== END 2022-09-15 22:54 | disposition home or self-care (01) ==
LOC: DL.ED 19:51
DX: R45.851 Suicidal ideations (principal); F15.10 Other stimulant abuse, uncomplicated; E78.00 Pure hypercholesterolemia, unspecified; J44.9 Chronic obstructive pulmonary disease, unspecified; E11.40 Type 2 diabetes mellitus with diabetic neuropathy, unspecified; E03.9 Hypothyroidism, unspecified; E66.9 Obesity, unspecified; Z68.34 Body mass index [BMI] 34.0-34.9, adult; Z79.4 Long term (current) use of insulin; Z79.899 Other long term (current) drug therapy
CPT/HCPCS: 36415; 80053; 80143; 80179; 80305-QW; 80307; 81001; 85025; 99284

== ENCOUNTER 2023-05-16 01:53 | Emergency (ER) | payer MEDICARE, MEDICAID | END 2023-05-16 02:27 | disposition home or self-care (01) | LOC: DL.ED 01:53 | DX: M25.561 Pain in right knee (principal) | CPT/HCPCS: 73600-RT; 99283 ==

== ENCOUNTER 2023-12-25 11:29 | Emergency (ER) | payer MEDICARE, MEDICAID ==
[2023-12-25 11:58] LABS: BASOPHILS PERCENT AUTO 0.3 % (0.0-1.0); EOSINOPHILS PERCENT AUTO 2.1 % (1.0-3.0); HEMATOCRIT 42.1 % (37.0-47.0); HEMOGLOBIN 14.1 g/dL (12.0-16.0); MEAN CORPUSCULAR HEMOGLOBIN 25.9 pg (27.0-34.0); MEAN CORPUSCULAR HGB CONC 33.5 g/dL (33.0-35.0); MEAN CORPUSCULAR VOLUME 77.4 fL (80-100); MONOCYTES PERCENT AUTO 4.3 % (2-8); NEUTROPHILS PERCENT AUTO 68.3 % (42.2-75.2); PLATELET COUNT,PLT 180 10^3/uL (150-450); RED BLOOD CELL COUNT 5.44 10^6/uL (4.2-5.4); WHITE BLOOD CELL COUNT,WBC 11.8 10^3/uL (5.0-10.0)
[2023-12-25 12:31] LABS: AMPHETAMINES,URINE NEGATIVE (NEGATIVE); BARBITURATES,URINE NEGATIVE (NEGATIVE); BENZODIAZEPINE,URINE NEGATIVE (NEGATIVE); MDMA (ECSTASY), URINE NEGATIVE (NEGATIVE); METHADONE,URINE NEGATIVE (NEGATIVE); METHAMPHETAMINES,URINE NEGATIVE (NEGATIVE); OPIATES,URINE NEGATIVE (NEGATIVE); OXYCODONE,URINE NEGATIVE (NEGATIVE); PHENCYCLIDINE,URINE NEGATIVE (NEGATIVE); TCA,URINE NEGATIVE (NEGATIVE)
[2023-12-25 12:54] VITALS: BP 147/78; PULSE 96
[2023-12-25 12:57] LABS: ALBUMIN 3.3 g/dL (3.4-5.0); BILIRUBIN TOTAL 0.2 mg/dL (0.2-1.0); CALCIUM 9.1 mg/dL (8.5-10.1); CREATININE 1.36 mg/dL (0.55-1.02); EST CRCL DRUG DOSING (CG) 40.01 mL/min; MAGNESIUM 1.4 mg/dL (1.8-2.4); PROTEIN TOTAL,TP 7.7 g/dL (6.4-8.2)
[2023-12-25 12:59] LABS: A/G RATIO 0.75
== END 2023-12-25 13:13 | disposition home or self-care (01) ==
LOC: DL.ED 11:29
DX: R44.0 Auditory hallucinations (principal); E83.42 Hypomagnesemia; E11.65 Type 2 diabetes mellitus with hyperglycemia; E78.00 Pure hypercholesterolemia, unspecified; J44.9 Chronic obstructive pulmonary disease, unspecified; E03.9 Hypothyroidism, unspecified; E66.9 Obesity, unspecified; Z68.31 Body mass index [BMI] 31.0-31.9, adult; Z79.899 Other long term (current) drug therapy; Z79.4 Long term (current) use of insulin; Z79.890 Hormone replacement therapy
CPT/HCPCS: 36415; 80053; 80143; 80179; 80305-QW; 83735; 85025; 99283; 99285

== ENCOUNTER 2024-01-15 14:36 | Emergency (ER) | payer MEDICARE, MEDICAID ==
[2024-01-15 15:05] VITALS: BP 129/64; PULSE 97
[2024-01-15] MEDS: Orphenadrine 60 MG/2 ML Inj IM ONE (15:14)
[2024-01-15] MEDS: Ketorolac 30 MG/ML SDV IVPUSH ONE (15:14)
== END 2024-01-15 15:16 | disposition home or self-care (01) ==
LOC: DL.ED 14:36
DX: R51.9 Headache, unspecified (principal); E78.00 Pure hypercholesterolemia, unspecified; J44.9 Chronic obstructive pulmonary disease, unspecified; E11.9 Type 2 diabetes mellitus without complications; E03.9 Hypothyroidism, unspecified; E66.9 Obesity, unspecified; F17.210 Nicotine dependence, cigarettes, uncomplicated; Z68.33 Body mass index [BMI] 33.0-33.9, adult; Z79.4 Long term (current) use of insulin; Z79.84 Long term (current) use of oral hypoglycemic drugs; Z79.890 Hormone replacement therapy; Z79.899 Other long term (current) drug therapy
CPT/HCPCS: 93010; 96372; 96374; 99283-25; 99285; J1885; J2360